=== PATIENT | male | born 1945 | race Caucasian/White ===

== ENCOUNTER 2017-04-27 18:02 | Inpatient (IN) ==
[2017-04-28] MEDS ORDERED: traMADol 50 MG TABLET PO PRN
[2017-04-28] MEDS ORDERED: Naloxone 0.4 MG/ML INJ IVP PRN
[2017-04-28] MEDS ORDERED: Acetaminophen 325 MG TABLET PO PRN
--- NOTE | 2017-04-28 | Internal Med History&Physical ---
<Alex Helms - Last Filed: 04/28/17 01:44> Date of Encounter: 04/28/17 Time of Encounter: 00:00 Assessment and Plan (1) Dyspnea Current visit: Yes Status: Acute Pt with what sounds like Chronic progressive BAI that has been mostly accompanied by non productive cough though recently has been productive. PFTs in July of 2016 showed normal FEV1 and FVC. CXR at that time showed: "There are increased interstitial markings." CXR at this admission shows:Coarse interstitial markings likely chronic in nature. No consolidation, effusion or pneumothorax. Stable cardiomediastinal silhouette. No acute fracture, dislocation, or bony destructive process. CTA at this admission shows:"No evidence of intraluminal filling defect to suggest pulmonary embolism. Main pulmonary artery is enlarged and measures 3.4 cm. This may be seen in setting of pulmonary arterial hypertension." And "extensive ground-glass pulmonary opacities and cystic changes throughout the bilateral lungs. No pleural effusion. No evidence of pneumothorax. No focal consolidation is identified." likely progression of Interstitial lung disease less likely COPD exacerbation, but will cover with breathing treatments and IV steroids which will help with both possible DDx. 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 Depending on actual work involved could be environmental exposure. Patient also 30+ pack year hx of smoking quitting 18 years ago. Plan: consult to Pulmonology placed PFTs ordered repeat ABG ordered continuous pulse ox O2 supplementation as needed IV solumedrol Duonebs Qualifiers: Dyspnea type: dyspnea on exertion Qualified Code(s): R06.09 - Other forms of dyspnea (2) HTN (hypertension) Current visit: Yes Status: Acute Pt with Hx of HTN on home amlodipine, metoprolol Qualifiers: Hypertension type: essential hypertension Qualified Code(s): I10 - Essential (primary) hypertension (3) Hypothyroidism Current visit: Yes Status: Acute Hx of Hypothyroidism on home synthroid plan: continue home synthroid with possible ILD would be prudent to attempt to ascertain cause of patient hypothyroidism to determine if hx of autoimmune disorders. Qualifiers: Hypothyroidism type: unspecified Qualified Code(s): E03.9 - Hypothyroidism , unspecified Internal Medicine - H&P: HPI Chief complaint: Dyspnea Admitted From: Hospital to Hospital Transfer Plans for Post Hospital Care: Home History of present illness: Mr. Mosher is a 72 year old male c PMHx of HTN and hypothyroidism reports to [facility] as a transfer from [place] for Hypoxia and Dyspnea. Patient reports it being hard to pin point when BAI first began. Per notes at [place] patient points to possibly franco time. Patient had work up in July of 2016 for similar symptoms CXR, PFTs, ECHO for SOB and non productive cough for 2-3 months preceding that. Patient reports being treated for possible PNA and being told he had COPD by his PCP. PFTs in July showed obstructive Flow volume loop, but FEV1/FVC was normal FVC was 90% predicted and FEV1 was 87% predicted. Patient reports non productive cough associated with this BAI. He reports cough has become productive over the last few weeks with white sputum. Pt denies fever , chills, chest pain, leg swelling, hemoptysis, nausea, vomiting, diarrhea, abd pain, or urinary symptoms. In the ED patient was worked up with blood work, CXR, and CTA of the Chest. Pt received 1 L NS, Tylenol, 1 duoneb and 125mg IV Solumedrol. Pt's blood work was notable for nl WBC, D-Dimer 322, abg: ph 7.42, pCO2 35, pO2 67, HCO3 23, O2 sat 94, Base Excess -1; trop negative, BNP 41. CXR showed: "Coarse interstitial markings likely chronic in nature. No consolidation, effusion or pneumothorax. Stable cardiomediastinal silhouette. No acute fracture, dislocation, or bony destructive process." CTA chest showed: "No evidence of intraluminal filling defect to suggest pulmonary embolism. Main pulmonary artery is enlarged and measures 3.4 cm. This may be seen in setting of pulmonary arterial hypertension." And "extensive ground-glass pulmonary opacities and cystic changes throughout the bilateral lungs. No pleural effusion. No evidence of pneumothorax. No focal consolidation is identified." Patient was going to be discharged home and treated out patient for COPD exacerbation, but patient became hypoxic to the 80s on exertion so they felt it prudent patient be transferred to [facility] for further work up and pulmonology consult. Patient reports being a former smoker having quit 18 years ago. Patient reports he worked in a factory when asked his occupation, upon further prompting he relayed the factory made machine parts. Past Med Surg Social Fam HX - Past Medical History Medical history: COPD, hypertension, thyroid disease Psychiatric history: no psych history - Social History Smoking Status: Former smoker Smokeless Tobacco Status: No Alcohol use: rarely Drug use: none Internal Medicine - H&P: Meds Albuterol Sulfate [Albuterol Inhaler] 1 puff IH Q6HR PRN #1 [email or web address] 04/27/17 [Rx] Albuterol Sulfate [Albuterol Inhaler] 2 puff IH Q4HR 04/27/17 [History] Atorvastatin Calcium [Lipitor] 20 mg PO DAILY 04/27/17 [History] Cephalexin [Keflex] 500 mg PO BID #14 capsule 04/27/17 [Rx] Clopidogrel [Plavix] 75 mg PO DAILY 04/27/17 [History] Levothyroxine [Synthroid] 125 mcg PO DAILY 04/27/17 [History] Metoprolol Succinate [Toprol Xl] 50 mg PO DAILY 04/27/17 [History] Oxymetazoline HCl [Afrin] 1 spray NS QID PRN #1 bottle 04/27/17 [Rx] PredniSONE [Deltasone] 60 mg PO DAILY 7 Days #7 tablet 04/27/17 [Rx] Saline Nasal [place] [Divide Nasal [place]] 1 appl NS AD PRN 7 Days #1 spray [Rx] amLODIPine [Norvasc] 10 mg PO DAILY 04/27/17 [History] 3 Allergy/AdvReac Type Severity Reaction Status Date / Time No Known Allergies Allergy Verified 04/27/17 13:08 All Systems PM: A 14-system review of systems was performed and is negative for pertinent findings except as documented above in the HPI. - Constitutional Vitals: Temp Pulse Resp BP Pulse Ox 97.7 F 87 17 158/107 93 04/27/17 22:00 04/27/17 22:00 04/27/17 22:00 04/27/17 22:00 04/27/17 22:00 General appearance: Present: A&O X 3, pleasant, no acute distress, answers questions appropriately - Head Head exam: Present: atraumatic, normocephalic - Eye Eye exam: Present: PERRL, conjuntiva pink, sclera anicteric Pupils: Present: PERRL - Neck Neck exam general surgery: Present: supple, trachea midline - Respiratory Respiratory exam: Present: decreased breath sounds, CTAB. Absent: accessory muscle use, rales, rhonchi, wheezes - Cardiovascular Cardiovascular exam: Present: RRR, +S1, +S2. Absent: diastolic murmur, gallop, rubs, systolic murmur - GI/Abdominal GI/Abdominal exam: Present: normal bowel sounds, soft, no peritoneal signs. Absent: distended, tenderness - Extremities Exam Extremities exam: Present: warm, radial pulses palpable and symmetrical. Absent : calf tenderness, cyanotic, pedal edema - Neurological Exam Neurological exam: Present: alert, oriented X3, no focal deficits. Absent: facial droop, speech deficit - Skin Skin exam: Present: dry, intact <[place],Jayce P - Last Filed: 04/28/17 05:36> Date of Encounter: 04/28/17 Internal Medicine - H&P: HPI History of present illness: Mr. Mosher is a 72 year old male All Systems PM: A 10-system review of systems was performed and is negative for pertinent findings except as documented above in the HPI. - Constitutional Vitals: Temp Pulse Resp BP Pulse Ox 97.6 F 83 17 138/53 95 04/28/17 03:54 04/28/17 03:54 04/28/17 03:54 04/28/17 03:54 04/28/17 03:54 Internal Med - H&P Results - Labs CBC & Chem 7: 04/28/17 03:03 Labs: BMP 04/28/17 03:03 Sodium 138 Potassium 4.2 Chloride 105 Carbon Dioxide 26 BUN 20 Creatinine 0.80 Glucose 242 H Calcium 9.5 - ABG Interpretation ABG results: 04/28/17 03:15 ABG pH 7.41 ABG pCO2 40 ABG pO2 78 L ABG HCO3 26 ABG Total CO2 27 H ABG O2 Saturation 96 ABG Base Excess 1 - Attending Attestation I examined this patient and my medical decision-making was reviewed with the Resident Physician. I agree with the documented findings, disposition and treatment plan as described except to the extent set forth below. 72/male Admitted with shortness of breath. Likely COPD exacerbation. Noted a pulmonary evaluation. Agree with present management. Close monitoring of respiratory status.
[2017-04-28] MEDS: GuaiFENesin/Dextromethorphan TABLET PO SCH ×3 (01:49→21:18)
[2017-04-28] MEDS: Ipratropium/Albuterol Neb 3 ML IH SCH ×5 (03:16→20:29)
[2017-04-28 03:21] LABS: ABG Base Excess 1 mEq/L (-2 to 3); ABG HCO3 26 mEq/L (21-27); ABG Oxygen Saturation 96 % (95-98); ABG PCO2 40 mmHg (35-45); ABG PH 7.41 pH Units (7.32-7.45); ABG PO2 78 mmHg (85-104); ABG TCO2 27 mEq/L (20-26)
[2017-04-28 04:32] LABS: BUN/Creatinine Ratio 25 (6-26); Blood Urea Nitrogen 20 mg/dL (8-23); Calcium 9.5 mg/dL (8.6-10.3); Carbon Dioxide 26 mEq/L (23-29); Chloride 105 mEq/L (98-107); Glucose 242 mg/dL (70-105); Osmolality,Calculated 297 (280-300); Potassium 4.2 mEq/L (3.5-5.1); Sodium 138 mEq/L (136-145); eGFR For African Americans > 60 (> 60); eGFR For Non-African Americans > 60 (> 60)
[2017-04-28 04:58] LABS: Basophils % 0.4 %; Hematocrit 43.7 % (37.5-50.1); Hemoglobin 14.3 g/dL (12.9-16.9); Immature Granulocytes % 0.4 % (0-4); Lymphocytes # 0.5 K/mcL (0.6-4.6); Lymphocytes % 21.2 %; Mean Corpuscular HGB Conc 32.7 g/dL (31.6-35.5); Mean Corpuscular Hemoglobin 28.2 pg (28.0-33.3); Mean Corpuscular Volume 86.2 fL (83.0-100.0); Mean Platelet Volume 11.9 fL (9.4-12.4); Monocytes # 0.1 K/mcL (0.0-1.3); Monocytes % 5.5 %; Neutrophils # 1.7 K/mcL (1.6-8.9); Platelet Count 181 K/mcL (140-400); Red Blood Count 5.07 M/mcL (4.19-5.50); Red Cell Distribution Width 14.4 % (11.5-14.5); Segmented Neutrophils % 72.5 %
[2017-04-28] MEDS: *HR* Enoxaparin 40 MG/0.4 ML SYRINGE SQ SCH (05:32)
[2017-04-28 05:45] LABS: Platelet Estimate Normal (Normal)
[2017-04-28] MEDS: Metoprolol XL (24 HR) Succ 50 MG TAB.ER.24H PO SCH (09:22)
[2017-04-28] MEDS: amLODIPine 5 MG TABLET PO SCH (09:22)
[2017-04-28] MEDS: MethylPREDNISolone 40 MG/ML VIAL IVP SCH ×2 (09:22→15:01)
--- NOTE | 2017-04-28 15:17 | Pulmonology Consult Note ---
Date of Encounter: 04/28/17 Time of Encounter: 15:15 Assessment and Plan (1) Acute respiratory failure with hypoxia Current Visit: Yes Status: Acute Patient presenting with shortness of breadth looks like patient has bullous emphysematous disease now presenting most likely infectious cause with Copd exacerbation , with CHF in the differential also ILD which is low in the differential . To continue O2 supplementation , will need ascertain exercise o2 requirements on discharge will see him in six weeks will repeat the imaging at the time (2) Pneumonia Current Visit: Yes Status: Acute Patient is presenting with bilateral ground glass opacities in the background of emphysematous changes the commonest reason for ground glass opacity are atypical pneumonia vs Pulmonary edema will start treating with Doxycycline 100 mg IV BID for total of 14 days on discharge he can go home on PO doxycycline 100 mg PO . Will do respiratory viral infection panel , check studies for legionella . Since he has CAD s/p stents will get ECHO for LV systolic and diastolic function , RV function and Pulmonary hypertension . Low on the differential inflammatory pneumonias like NSIP , LIP patient doesnt have any rheumatologic disease or any symptoms , doesnt have any symptoms pertaining to any chronic immunodeficiency which can lead to lymphoid intersitial pneumonia the CT scan didnt show any evidence of that will repeat CT scan after we see him as outpatient. Qualifiers: Pneumonia type: due to unspecified organism Laterality: unspecified laterality Lung location: unspecified part of lung Qualified Code(s): J18.9 - Pneumonia, unspecified organism (3) Bullous emphysema Current Visit: Yes Status: Acute Reviewing the CT scan is more of bullous changes rather than a cystic lung disease only other differential which is close to this presentation in CT scan Pulmonary Langerhans histiocytosis which is usually upper lobe predominant with some micronodular opacities doesnt looks like that . Most of the changes falls into a pattern for centrilobular and paraseptal emphysematous changes and some panacinar changes will check alpha1 -antitrypsin with 30 years of smoking and continued exposure to second hand smoke can cause these findings . To send him home on duoneb nebulizer and symbicort BID To send him home on 3 week prednisone taper . (4) Ground glass opacity present on imaging of lung Current Visit: Yes Status: Acute Differential will be atypical bacterial pneumonia vs Viral pneumonia Vs CHF vs ILD . Will give 14 days of 100 mg PO doxycycline . If there is no evidence of CHF and after 8 weeks if there is persistent ground glass opacities in HRCT will consider bronchoscopic evaluation . History of Present Illness Consult date: 04/28/17 Requesting physician: Jayce Lovelace Reason for consult: dyspnea, cough, abnormal CXR/CT Chief complaint: Cough and shortness of breadth History of present illness: 72 year old male with past medical history significant for Chronic smoking for 30 years stopped 18 years ago constantly exposed to second hand smoke all these years comes with progressive shortness of breadth , with cough and sputum production , denies any chest pain , denies any orthopnea and PND , denies any fever or chills denies any joint pains , denies any pedal edema , denies any chest tightness or palpitations , denies any pet exposures , denies any unusual hobbies , denies any recurrent pneumonias or any other infections suggestive of any background immunodeficiency. Denies any family history of lung disease and spontaneous pneumothorax , denies any neuro symptoms and MSK symptoms , patient even though there is progressive decrease in exercise tolerance he is pretty active , Pulmonary was consulted for the CT scan suggestive of cystic lung disease . Past Med Surg Social Fam HX - Past Medical History Medical history: COPD, hypertension, thyroid disease Psychiatric history: no psych history - Social History Smoking Status: Former smoker Smokeless Tobacco Status: No Alcohol use: rarely Drug use: none Medications and Allergies Albuterol Sulfate [Albuterol Inhaler] 1 puff IH Q6HR PRN #1 hfa.aer.ad 04/27/17 [Rx] Atorvastatin Calcium [Lipitor] 20 mg PO DAILY 04/27/17 [History] Clopidogrel [Plavix] 75 mg PO DAILY 04/27/17 [History] Levothyroxine [Synthroid] 125 mcg PO DAILY 04/27/17 [History] Oxymetazoline HCl [Afrin] 1 spray NS QID PRN #1 bottle 04/27/17 [Rx] PredniSONE [Deltasone] 60 mg PO DAILY 7 Days #7 tablet 04/27/17 [Rx] Saline Nasal [place] [[place] Nasal [place]] 1 appl NS AD PRN 7 Days #1 spray [Rx] amLODIPine [Norvasc] 10 mg PO DAILY 04/27/17 [History] Citalopram Hydrobromide [Celexa] 20 mg PO DAILY 04/28/17 [History] Metoprolol [Lopressor] 50 mg PO DAILY 04/28/17 [History] Umeclidinium Brm/Vilanterol Tr [Anoro Ellipta 62.5-25 Mcg INH] 1 puff IH DAILY 04/28/17 [History] 3 Allergy/AdvReac Type Severity Reaction Status Date / Time No Known Allergies Allergy Verified 04/27/17 13:08 All Systems: The remainder of the systems were reviewed and are negative Physical Examination Vital Signs: Vital Signs, Last 4 Hours Temp Pulse Resp BP Pulse Ox 04/28/17 12:06 98.5 F 71 16 135/86 93 04/28/17 11:53 18 80 Auscultation: bilateral: wheezes Results - Laboratory Findings CBC and BMP: 04/28/17 03:03 04/28/17 03:03 ABG ABG pH 7.41 pH Units (7.32-7.45) 04/28/17 03:15 ABG pCO2 40 mmHg (35-45) 04/28/17 03:15 ABG pO2 78 mmHg (85-104) L 04/28/17 03:15 ABG O2 Saturation 96 % (95-98) 04/28/17 03:15 Abnormal lab findings: Abnormal lab results WBC 2.4 K/mcL (4.3-11.1) L 04/28/17 03:03 Lymphocytes # 0.5 K/mcL (0.6-4.6) L 04/28/17 03:03 ABG pO2 78 mmHg (85-104) L 04/28/17 03:15 ABG Total CO2 27 mEq/L (20-26) H 04/28/17 03:15 Glucose 242 mg/dL (70-105) H 04/28/17 03:03 - Clinical Findings Intake & Output: Intake & Output 04/27/17 04/28/17 04/28/17 23:59 07:59 15:59 Intake Total 360 / 360 Balance 360 / 360 Weight 83.416 kg Consult Discharge Plan - Plan Referrals: Mady Felipe, [employer] [Primary Care Provider] - 04/30/17 1:20 pm
--- NOTE | 2017-04-28 16:34 | Internal Med Progress Note ---
Date of Encounter: 04/28/17 Time of Encounter: 16:30 - Assessment and plan (1) Dyspnea Current Visit: Yes Status: Acute Assessment and plan: presented with progressive dyspnea on exertion with associated dry, nonproductive cough. CTA showed no evidence pulmonary embolism. Main pulmonary artery is enlarged and measures 3.4 cm. This may be seen in setting of pulmonary arterial hypertension." And "extensive ground-glass pulmonary opacities and cystic changes throughout the bilateral lungs. Cont steroids. Respiratory PCR, urinary antigens, echocardiogram and BNP pending. Pulmonology following. Qualifiers: Dyspnea type: dyspnea on exertion Qualified Code(s): R06.09 - Other forms of dyspnea (2) HTN (hypertension) Current Visit: Yes Status: Acute Assessment and plan: Pt with Hx of HTN on home amlodipine, metoprolol Qualifiers: Hypertension type: essential hypertension Qualified Code(s): I10 - Essential (primary) hypertension (3) Hypothyroidism Current Visit: Yes Status: Acute Assessment and plan: per hx. Cont home levothyroxine Qualifiers: Hypothyroidism type: unspecified Qualified Code(s): E03.9 - Hypothyroidism , unspecified (4) DVT prophylaxis Current Visit: Yes Status: Acute Assessment and plan: lovenox - Constitutional Vitals: Temp Pulse Resp BP Pulse Ox 97.8 F 86 17 164/93 91 04/28/17 16:13 04/28/17 16:13 04/28/17 16:13 04/28/17 16:13 04/28/17 16:13 General appearance: Present: A&O X 3, pleasant, no acute distress, answers questions appropriately Internal Medicine: Result - Labs CBC & Chem 7: 04/28/17 03:03 04/28/17 03:03 Labs: Short CBC 04/28/17 Range/Units 03:03 WBC 2.4 L (4.3-11.1) K/mcL Hgb 14.3 (12.9-16.9) g/dL Hct 43.7 (37.5-50.1) % Plt Count 181 (140-400) K/mcL Neutrophils # 1.7 (1.6-8.9) K/mcL BMP 04/28/17 03:03 Sodium 138 Potassium 4.2 Chloride 105 Carbon Dioxide 26 BUN 20 Creatinine 0.80 Glucose 242 H Calcium 9.5 - ABG Interpretation ABG results: ABG ABG pH 7.41 pH Units (7.32-7.45) 04/28/17 03:15 ABG pCO2 40 mmHg (35-45) 04/28/17 03:15 ABG pO2 78 mmHg (85-104) L 04/28/17 03:15 ABG O2 Saturation 96 % (95-98) 04/28/17 03:15 Consult Discharge Plan - Plan Referrals: Mady Felipe CNP [Primary Care Provider] - 04/30/17 1:20 pm
[2017-04-28] MEDS: Doxycycline 100 MG in 0.9 % Sodium Chloride Mini Bag 100 ML IVPB SCH (18:20)
[2017-04-28] MEDS: predniSONE 20 MG TABLET PO SCH (18:20)
[2017-04-28] MEDS ORDERED: Benzonatate 100 MG CAPSULE PO PRN (19:27)
[2017-04-28 19:31] LABS: Adenovirus Not Detected (Not Detect); Bordetella Pertussis Not Detected (Not Detect); Chlamydophila pneumoniae Not Detected (Not Detect); Coronavirus 229E Not Detected (Not Detect); Coronavirus HKU1 Not Detected (Not Detect); Coronavirus NL63 Not Detected (Not Detect); Coronavirus OC43 Not Detected (Not Detect); Human Metapneumovirus Not Detected (Not Detect); Human Rhinovirus/Enterovirus Not Detected (Not Detect); Influenza A Subtype 2009 H1 Not Detected (Not Detect); Influenza A Untypeable Not Detected (Not Detect); Influenza B Not Detected (Not Detect); Mycoplasma pneumoniae Not Detected (Not Detect); Parainfluenza Virus 1 Not Detected (Not Detect); Parainfluenza Virus 2 Not Detected (Not Detect); Parainfluenza Virus 3 Not Detected (Not Detect); Parainfluenza Virus 4 Not Detected (Not Detect); Respiratory Syncytial Virus ***DETECTED*** (Not Detect)
[2017-04-29] MEDS: Ipratropium/Albuterol Neb 3 ML IH SCH ×7 (00:42→23:57)
[2017-04-29] MEDS: *HR* Enoxaparin 40 MG/0.4 ML SYRINGE SQ SCH (05:45)
[2017-04-29] MEDS: Doxycycline 100 MG in 0.9 % Sodium Chloride Mini Bag 100 ML IVPB SCH ×2 (05:46→17:12)
[2017-04-29 06:41] LABS: Hematocrit 44.3 % (37.5-50.1); Hemoglobin 14.5 g/dL (12.9-16.9); Mean Corpuscular HGB Conc 32.7 g/dL (31.6-35.5); Mean Corpuscular Hemoglobin 28.3 pg (28.0-33.3); Mean Corpuscular Volume 86.5 fL (83.0-100.0); Platelet Count 188 K/mcL (140-400); Red Blood Count 5.12 M/mcL (4.19-5.50); Red Cell Distribution Width 14.5 % (11.5-14.5)
[2017-04-29 06:54] LABS: BUN/Creatinine Ratio 28 (6-26); Blood Urea Nitrogen 19 mg/dL (8-23); Calcium 9.2 mg/dL (8.6-10.3); Carbon Dioxide 25 mEq/L (23-29); Chloride 105 mEq/L (98-107); Glucose 213 mg/dL (70-105); Osmolality,Calculated 299 (280-300); Potassium 3.5 mEq/L (3.5-5.1); Sodium 140 mEq/L (136-145); eGFR For African Americans > 60 (> 60); eGFR For Non-African Americans > 60 (> 60)
[2017-04-29] MEDS: amLODIPine 5 MG TABLET PO SCH (07:35)
[2017-04-29] MEDS: Metoprolol XL (24 HR) Succ 50 MG TAB.ER.24H PO SCH (07:35)
[2017-04-29] MEDS: GuaiFENesin/Dextromethorphan TABLET PO SCH ×2 (07:35→20:49)
[2017-04-29] MEDS: predniSONE 20 MG TABLET PO SCH (07:35)
--- NOTE | 2017-04-29 13:16 | Pulmonology Progress Note ---
Date of Encounter: 04/29/17 Time of Encounter: 12:30 Assessment and Plan (1) Acute respiratory failure with hypoxia Current Visit: Yes Status: Acute Patient presenting with acute respiratory failure due to COPD exacerbation caused by RSV pneumonia as PCR is positive with ECHO showing diastolic heart failure with Severe Pulmonary hypertension which is contributing to V/Q mismatch. Will need O2 on discharge as recovering from COPD exacerbation due to RSV pneumonia takes a while to recover . Explained to the patient that he will need O2 on discharge . (2) Pulmonary hypertension Current Visit: Yes Status: Acute Patient Pulmonary HTN is due to Class III long standing lung disease contributed by Class II with diastolic heart failure . Need to optimize the treatment for underlying cause will repeat ECHO in 3 months if there is Severe Pulmonary HTN with decreased exercise tolerance patient might benefit from right heart cath will revaluate as an outpatient . (3) Bullous emphysema Current Visit: Yes Status: Acute Will send him home on Duoneb nebulizer and with Symbicort BID will follow as an outpatient with repeat CT chest (4) Pneumonia Current Visit: Yes Status: Acute RSV pneumonia atypical pneumonia cannot be ruled out will complete 14 day course of antibiotics and steroid taper Qualifiers: Pneumonia type: due to unspecified organism Laterality: unspecified laterality Lung location: unspecified part of lung Qualified Code(s): J18.9 - Pneumonia, unspecified organism (5) Ground glass opacity present on imaging of lung Current Visit: Yes Status: Acute GGO can be explained by RSV pneumonia and diastolic heart failure . (6) Diastolic heart failure Current Visit: Yes Status: Acute Patient will need gentle diuresis with outpatient cardiology follow up. Qualifiers: Heart failure chronicity: acute Qualified Code(s): I50.31 - Acute diastolic (congestive) heart failure Objective PUL Vital signs: Last Vital Signs Temp 98.0 F 04/29/17 11:04 Pulse 90 04/29/17 11:04 Resp 20 04/29/17 11:09 BP 134/89 04/29/17 11:04 Pulse Ox 94 04/29/17 11:09 Results - Laboratory Findings CBC and BMP: 04/29/17 05:10 04/29/17 05:10 ABG ABG pH 7.41 pH Units (7.32-7.45) 04/28/17 03:15 ABG pCO2 40 mmHg (35-45) 04/28/17 03:15 ABG pO2 78 mmHg (85-104) L 04/28/17 03:15 ABG O2 Saturation 96 % (95-98) 04/28/17 03:15 Abnormal lab findings: Abnormal lab results Lymphocytes # 0.5 K/mcL (0.6-4.6) L 04/28/17 03:03 ABG pO2 78 mmHg (85-104) L 04/28/17 03:15 ABG Total CO2 27 mEq/L (20-26) H 04/28/17 03:15 Creatinine 0.68 mg/dL (0.70-1.30) L 04/29/17 05:10 BUN/Creatinine Ratio 28 (6-26) H 04/29/17 05:10 Glucose 213 mg/dL (70-105) H 04/29/17 05:10 B-Natriuretic Peptide 106 pg/mL (Less than 100) H 04/29/17 05:10 RSV (PCR) DETECTED (Not Detect) A 04/28/17 18:20 - Microbiology Findings Microbiology Findings: Microbiology, Last 48 Hours 04/28/17 18:20 Legionella Antigen - Final Urine,Clean Catch Streptococcus pneumoniae Antigen (M - Final - Clinical Findings Intake & Output: Intake & Output 04/28/17 04/29/17 04/29/17 23:59 07:59 15:59 Intake Total 250 / 250 240 / 240 Balance 250 / 250 240 / 240 Weight 84.232 kg Consult Discharge Plan - Plan Referrals: Mady Felipe, [employer] INSPECTOR [Primary Care Provider] - 04/30/17 1:20 pm
--- NOTE | 2017-04-29 14:33 | Internal Med Progress Note ---
Date of Encounter: 04/29/17 Time of Encounter: 11:30 - Assessment and plan (1) Acute respiratory failure with hypoxia Current Visit: Yes Status: Acute Assessment and plan: Symptomatic with shortness of breath cough and sore throat for 8 weeks. Does not wear oxygen at home and now requiring supplemental O2 to maintain adequate oxygen saturations. Multifactorial with suspected pneumonia, emphysema and possible CHS and/or interstitial lung disease. Continue treating underlying causes as noted below. Pulmonology following. Wean O2 as able. (2) Bullous emphysema Current Visit: Yes Status: Acute Assessment and plan: evaluated by Pulmonology who felt CT findings more consistent with bullous changes rather than a cystic lung disease. Will need to be discharged home with duoneb nebulizer and symbicort BID and 3 week prednisone taper . (3) Pneumonia Current Visit: Yes Status: Acute Assessment and plan: chest CT showed bilateral ground glass opacities. Pulmonology noted concern for atypical pneumonia vs Pulmonary edema. Resp PCR with RSV, urinary antigens negative. TTE with EF 60% and mild diastolic dysfunction. Clinically does not appear to be overloaded. Cont doxycycline for now. Pulmonology following; await further recommendations. Qualifiers: Pneumonia type: due to unspecified organism Laterality: unspecified laterality Lung location: unspecified part of lung Qualified Code(s): J18.9 - Pneumonia, unspecified organism (4) Hypothyroidism Current Visit: Yes Status: Acute Assessment and plan: per hx. Cont home levothyroxine Qualifiers: Hypothyroidism type: unspecified Qualified Code(s): E03.9 - Hypothyroidism , unspecified (5) HTN (hypertension) Current Visit: Yes Status: Acute Assessment and plan: Pt with Hx of HTN on home amlodipine, metoprolol Qualifiers: Hypertension type: essential hypertension Qualified Code(s): I10 - Essential (primary) hypertension (6) DVT prophylaxis Current Visit: Yes Status: Acute Assessment and plan: lovenox - Subjective Interval history: Seen and examined at bedside; overall about the same. Says he may feel slightly better but still with sore throat and nonproductive cough. No fevers or chills. Still short of breath at times it is worse with exertion or coughing fit. No chest pain. No fevers or chills overnight. - Constitutional Vitals: Temp Pulse Resp BP Pulse Ox 98.0 F 90 20 134/89 94 04/29/17 11:04 04/29/17 11:04 04/29/17 11:09 04/29/17 11:04 04/29/17 11:09 General appearance: Present: A&O X 3, pleasant, no acute distress, answers questions appropriately - Head Head exam: Present: atraumatic, normocephalic - Eye Eye exam: Present: PERRL, conjuntiva pink, sclera anicteric Pupils: Present: PERRL - Neck Neck exam general surgery: Present: supple, trachea midline. Absent: lymphadenopathy - Respiratory Respiratory exam: Present: CTAB. Absent: accessory muscle use, rales, rhonchi, wheezes - Cardiovascular Cardiovascular exam: Present: RRR, +S1, +S2. Absent: diastolic murmur, gallop, rubs, systolic murmur - GI/Abdominal GI/Abdominal exam: Present: normal bowel sounds, soft, no peritoneal signs. Absent: distended, tenderness - Extremities Exam Extremities exam: Present: warm, radial pulses palpable and symmetrical. Absent : calf tenderness, cyanotic, pedal edema - Neurological Exam Neurological exam: Present: CN II-XII intact, oriented X3, no focal deficits. Absent: pronater drift, facial droop, speech deficit - Skin Skin exam: Present: dry, intact Internal Medicine: Result - Labs CBC & Chem 7: 04/29/17 05:10 04/29/17 05:10 Labs: Short CBC 04/29/17 Range/Units 05:10 WBC 7.3 D (4.3-11.1) K/mcL Hgb 14.5 (12.9-16.9) g/dL Hct 44.3 (37.5-50.1) % Plt Count 188 (140-400) K/mcL BMP 04/29/17 05:10 Sodium 140 Potassium 3.5 Chloride 105 Carbon Dioxide 25 BUN 19 Creatinine 0.68 L Glucose 213 H Calcium 9.2 - ABG Interpretation ABG results: ABG ABG pH 7.41 pH Units (7.32-7.45) 04/28/17 03:15 ABG pCO2 40 mmHg (35-45) 04/28/17 03:15 ABG pO2 78 mmHg (85-104) L 04/28/17 03:15 ABG O2 Saturation 96 % (95-98) 04/28/17 03:15 - Impressions Impressions Echocardiogram 04/29/17 15:51 Impressions: LVEF 60%. Normal LV chamber size, wall thickness and function. Mild left ventricular diastolic dysfunction. Normal right ventricular structure and function. Moderately dilated left atrium. Severe pulmonary hypertension. Estimated RVSP is 57 mmHg. No significant valvular dysfunction. Left Ventricular Wall Motion: Rest Echo Findings All wall segments showed normal motion. Findings: Study Quality * Technically adequate exam. ECG Findings * Normal sinus rhythm. Left Ventricle * LVEF 60%. * Normal LV chamber size, wall thickness and function. * Mild left ventricular diastolic dysfunction. Right Ventricle * Normal right ventricular structure and function. Left Atrium * Moderately dilated left atrium. Right Atrium * Mildly dilated right atrium. Interatrial Septum * No evidence of PFO by color Doppler. Aortic Valve * Trileaflet aortic valve. * Mildly calcified aortic valve leaflets. * Trace aortic regurgitation. * No aortic stenosis. Mitral Valve * Normal mitral valve structure and function. * No mitral regurgitation. * No mitral stenosis. Tricuspid Valve * Normal tricuspid valve structure and function. * Trace tricuspid regurgitation. * Severe pulmonary hypertension. * Estimated RVSP is 57 mmHg. * Estimated RA pressure is 5 mmHg. Pulmonic Valve * Pulmonic valve is not well visualized. * No pulmonic regurgitation. Aorta * Normally sized aortic root. Pericardium * The pericardium appears normal. IVC * Normal IVC dimensions and inspiratory collapse. Pulmonary Artery * Normal visualized portions of the main pulmonary artery. Consult Discharge Plan - Plan Referrals: Mady Felipe CNP [Primary Care Provider] - 04/30/17 1:20 pm
[2017-04-29] MEDS: Budesonide/Formoterol 160/4.5 MDI IH SCH ×2 (15:48→20:39)
[2017-04-30] MEDS: Ipratropium/Albuterol Neb 3 ML IH SCH ×4 (04:22→16:14)
[2017-04-30] MEDS: Doxycycline 100 MG in 0.9 % Sodium Chloride Mini Bag 100 ML IVPB SCH (06:13)
[2017-04-30] MEDS: *HR* Enoxaparin 40 MG/0.4 ML SYRINGE SQ SCH (06:13)
[2017-04-30 06:16] LABS: Hematocrit 44.1 % (37.5-50.1); Hemoglobin 14.3 g/dL (12.9-16.9); Mean Corpuscular HGB Conc 32.4 g/dL (31.6-35.5); Mean Corpuscular Hemoglobin 28.3 pg (28.0-33.3); Mean Corpuscular Volume 87.3 fL (83.0-100.0); Mean Platelet Volume 11.2 fL (9.4-12.4); Platelet Count 182 K/mcL (140-400); Red Blood Count 5.05 M/mcL (4.19-5.50); Red Cell Distribution Width 14.6 % (11.5-14.5)
[2017-04-30 06:40] LABS: BUN/Creatinine Ratio 18 (6-26); Blood Urea Nitrogen 13 mg/dL (8-23); Carbon Dioxide 31 mEq/L (23-29); Chloride 101 mEq/L (98-107); Glucose 122 mg/dL (70-105); Osmolality,Calculated 291 (280-300); Potassium 3.2 mEq/L (3.5-5.1); Sodium 140 mEq/L (136-145); eGFR For African Americans > 60 (> 60); eGFR For Non-African Americans > 60 (> 60)
[2017-04-30] MEDS: GuaiFENesin/Dextromethorphan TABLET PO SCH (08:02)
[2017-04-30] MEDS: amLODIPine 5 MG TABLET PO SCH (08:02)
[2017-04-30] MEDS: Metoprolol XL (24 HR) Succ 50 MG TAB.ER.24H PO SCH (08:02)
[2017-04-30] MEDS: predniSONE 20 MG TABLET PO SCH (08:02)
[2017-04-30] MEDS: Budesonide/Formoterol 160/4.5 MDI IH SCH (08:10)
[2017-04-30 11:40] VITALS: BP 143/89
--- NOTE | 2017-04-30 13:06 | Discharge Summary ---
Orders not resulted at time of discharge: Pending orders 04/28/17 16:34 Culture,Sputum with Gram Stain [RM] Routine 04/28/17 16:40 ALISA Titer by IFA Routine 04/28/17 17:50 Yooan-1-Rhtquvolmse Routine Date of Encounter: 04/30/17 Time of Encounter: 13:22 - Discharge Diagnosis (1) Acute respiratory failure with hypoxia Priority: Primary Status: Acute Comments: Symptomatic with shortness of breath cough and sore throat for 8 weeks. Does not wear oxygen at home and required supplemental O2 to maintain adequate oxygen saturations. Multifactorial with RSV pneumonia, emphysema, diastolic heart failure and pulmonary hypertension. He was evaluated by pulmonology who noted will likely take several weeks to recover. He qualified for home oxygen and was discharged home in stable condition with outpatient follow-up. (2) Bullous emphysema Priority: Primary Status: Acute Comments: evaluated by Pulmonology who felt CT findings more consistent with bullous changes rather than a cystic lung disease. Discharged home with duoneb nebulizer , symbicort and 3 week prednisone taper. Follow-up with pulmonology outpatient (3) Pneumonia due to respiratory syncytial virus (RSV) Priority: Primary Status: Acute Comments: chest CT showed bilateral ground glass opacities. Resp PCR with RSV, urinary antigens negative. Discharge home on 2 week course of doxycycline. Outpatient pulmonology follow-up. (4) Diastolic heart failure Priority: Primary Status: Acute Comments: TTE with EF 60%, mild diastolic dysfunction, moderately dilated left atrium and severe pulmonary hypertension. Gentle diuresis at discharge with outpatient cardiology follow up. Qualifiers: Heart failure chronicity: acute Qualified Code(s): I50.31 - Acute diastolic (congestive) heart failure (5) Pulmonary hypertension Priority: Primary Status: Acute Comments: Evaluated by Pulmonolgy who noted hypertension secondary to Class III long standing lung disease contributed by Class II with diastolic heart failure. Continue treating underlying lung disease and diastolic heart failure as noted above. Follow up outpatient with pulmonology for repeat ECHO in 3 months if there is Severe Pulmonary HTN with decreased exercise tolerance patient might benefit from right heart cath which will be revaluated as an outpatient (6) Hypothyroidism Priority: Secondary Status: Acute Comments: per hx. Cont home levothyroxine Qualifiers: Hypothyroidism type: unspecified Qualified Code(s): E03.9 - Hypothyroidism , unspecified (7) HTN (hypertension) Priority: Secondary Status: Acute Comments: per hx. BP controlled. Cont home BP medication Qualifiers: Hypertension type: essential hypertension Qualified Code(s): I10 - Essential (primary) hypertension Hospital course: Mr. Mosher is a 72 year old male with past medical history hypertension and hypo-thyroidism who presented to [facility] on 2017 with complaints of progressive shortness of breath and dyspnea on exertion. He was found to be in acute respiratory failure with hypoxia and found to have underlying on her hypertension, emphysema, suspected pneumonia and diastolic heart failure. He was evaluated by pulmonology and discharge home on prolonged steroid taper, ATB, bronchodilators and low-dose Lasix. He qualified for home oxygen and was discharged home in stable condition with outpatient follow-up. Please see assessment and plan for further details. Discharge discussed with: patient, family - Time Spent with Patient Total time spent providing and/or coordinating discharge services: Greater than 30 minutes (58 minutes spent on discharge) - Discharge Medications Prescriptions: Ipratropium/Albuterol Neb [Duoneb] 3 ml IH Q4HR PRN #30 vial.neb PRN Reason: Shortness Of Breath/Wheezing Doxycycline 100 mg PO BID #28 capsule Furosemide [Lasix] 20 mg PO DAILY #30 tablet predniSONE [PredniSONE] 10 mg PO DAILY #84 tablet Home Medications: Albuterol Sulfate [Albuterol Inhaler] 1 puff IH Q6HR PRN #1 hfa.aer.ad 04/27/17 [Rx] Atorvastatin Calcium [Lipitor] 20 mg PO DAILY 04/27/17 [History] Clopidogrel [Plavix] 75 mg PO DAILY 04/27/17 [History] Levothyroxine [Synthroid] 125 mcg PO DAILY 04/27/17 [History] Oxymetazoline HCl [Afrin] 1 spray NS QID PRN #1 bottle 04/27/17 [Rx] Saline Nasal [place] [[place] Nasal [place]] 1 appl NS AD PRN 7 Days #1 spray [Rx] amLODIPine [Norvasc] 10 mg PO DAILY 04/27/17 [History] Citalopram Hydrobromide [Celexa] 20 mg PO DAILY 04/28/17 [History] Metoprolol [Lopressor] 50 mg PO DAILY 04/28/17 [History] Umeclidinium Brm/Vilanterol Tr [Anoro Ellipta 62.5-25 Mcg INH] 1 puff IH DAILY 04/28/17 [History] Budesonide/Formoterol 160/4.5 [Symbicort 160/4.5] 2 puff IH BIDR inhaler [Rx] Doxycycline 100 mg PO BID #28 capsule 04/30/17 [Rx] Furosemide [Lasix] 20 mg PO DAILY #30 tablet 04/30/17 [Rx] Ipratropium/Albuterol Neb [Duoneb] 3 ml IH Q4HR PRN #30 vial.neb 04/30/17 [Rx] predniSONE [PredniSONE] 10 mg PO DAILY #84 tablet 04/30/17 [Rx] Allergies/Adverse Reactions: 3 Allergy/AdvReac Type Severity Reaction Status Date / Time No Known Allergies Allergy Verified 04/27/17 13:08 Date of admission: 04/29/17 14:46 Primary care physician: Mady Felipe CNP Consults: 04/28/17 00:05 Consult to Pulmonology [CONS] Routine Consulting Provider: [facility] [place] Reason for Consult: Hypoxia, dyspnea on exertion, CT chest with Findings suggestive of interstitial lung disease. Call Completed: No Discharging clinician: Anabel Mccullough Anticipated date of discharge: 04/30/17 - Constitutional Vitals: Temp Pulse Resp BP Pulse Ox 98.5 F 69 16 143/89 98 04/30/17 11:38 04/30/17 11:38 04/30/17 11:45 04/30/17 11:38 04/30/17 11:45 General appearance: Present: A&O X 3, pleasant, no acute distress, answers questions appropriately - Head Head exam: Present: atraumatic, normocephalic - Eye Eye exam: Present: PERRL, conjuntiva pink, sclera anicteric Pupils: Present: PERRL - Neck Neck exam general surgery: Present: supple, trachea midline. Absent: lymphadenopathy - Respiratory Respiratory exam: Present: CTAB. Absent: accessory muscle use, rales, rhonchi, wheezes - Cardiovascular Cardiovascular exam: Present: RRR, +S1, +S2. Absent: diastolic murmur, gallop, rubs, systolic murmur - GI/Abdominal GI/Abdominal exam: Present: normal bowel sounds, soft, no peritoneal signs. Absent: distended, tenderness - Extremities Exam Extremities exam: Present: warm, radial pulses palpable and symmetrical. Absent : calf tenderness, cyanotic, pedal edema - Neurological Exam Neurological exam: Present: CN II-XII intact, oriented X3, no focal deficits. Absent: pronater drift, facial droop, speech deficit - Skin Skin exam: Present: dry, intact - Patient Status Disposition: Home, Self-Care Condition: Good Functional capacity at discharge: independent ambulation Overall status at discharge: patient is progressing back to baseline - Discharge Instructions Instructions: Emphysema (DC), Chronic Obstructive Pulmonary Disease (DC), Heart Failure (DC), Pulmonary Arterial Hypertension (DC), Doxycycline (By mouth) , Prednisone (By mouth), Furosemide (By mouth), Ipratropium/Albuterol (By breathing) Follow Up With: Mady Felipe CNP [Primary Care Provider] - 04/30/17 1:20 pm - Diet and Activity Activity: increase activity as tolerated Diet: advance to your usual diet
[2017-04-30] MEDS ORDERED: FLUARIX QUAD 2017-18 36MOS UP/PF 0.5 ML SYRINGE IM ONE (14:09)
== END 2017-04-30 18:00 | disposition home or self-care (01) | DRG 291 ==
LOC: 3BNU
PROVIDERS: ADMIT Registered Nurse; ATTEND Registered Nurse

== ENCOUNTER 2017-06-17 16:52 | Inpatient (IN) ==
--- NOTE | 2017-06-17 21:52 | Internal Med History&Physical ---
Date of Encounter: 06/17/17 Time of Encounter: 21:49 Internal Medicine - H&P: HPI Chief complaint: sob Admitted From: Intrahospital Transfer Plans for Post Hospital Care: Home History of present illness: Mr. Mosher is a 72 year old male Patient with history of hypertension, hypothyroidism, bolus emphysema. Patient recently admitted to this hospital in April with similar symptoms patient presented to [place] emergency room with increased shortness of breath with exertion that started for the last 2 days with feeling tired . had some chills and some cough sometime productive sometimes blood tinged CTA of the chest there was suggestive of bilateral pneumonia BNP 217 patient was then transferred here for further evaluation and treatment. Denies any chest pain no nausea vomiting. Past Med Surg Social Fam HX - Past Medical History Medical history: COPD, hypertension, thyroid disease Psychiatric history: no psych history - Social History Smoking Status: Former smoker Smokeless Tobacco Status: No Alcohol use: rarely Drug use: none - Family History Mother History Unknown: Yes Father History Unknown: Yes Internal Medicine - H&P: Meds Albuterol Sulfate [Albuterol Inhaler] 1 puff IH Q6HR PRN #1 hfa.aer.ad 04/27/17 [Rx] Atorvastatin Calcium [Lipitor] 20 mg PO DAILY 04/27/17 [History] Clopidogrel [Plavix] 75 mg PO DAILY 04/27/17 [History] Levothyroxine [Synthroid] 125 mcg PO DAILY 04/27/17 [History] Oxymetazoline HCl [Afrin] 1 spray NS QID PRN #1 bottle 04/27/17 [Rx] Saline Nasal [place] [[place] Nasal [place]] 1 appl NS AD PRN 7 Days #1 spray [Rx] amLODIPine [Norvasc] 10 mg PO DAILY 04/27/17 [History] Citalopram Hydrobromide [Celexa] 20 mg PO DAILY 04/28/17 [History] Metoprolol [Lopressor] 50 mg PO DAILY 04/28/17 [History] Umeclidinium Brm/Vilanterol Tr [Anoro Ellipta 62.5-25 Mcg INH] 1 puff IH DAILY 04/28/17 [History] Budesonide/Formoterol 160/4.5 [Symbicort 160/4.5] 2 puff IH BIDR inhaler [Rx] Doxycycline 100 mg PO BID #28 capsule 04/30/17 [Rx] Furosemide [Lasix] 20 mg PO DAILY #30 tablet 04/30/17 [Rx] Ipratropium/Albuterol Neb [Duoneb] 3 ml IH Q4HR PRN #30 vial.neb 04/30/17 [Rx] predniSONE [PredniSONE] 10 mg PO DAILY #84 tablet 04/30/17 [Rx] 3 Allergy/AdvReac Type Severity Reaction Status Date / Time No Known Allergies Allergy Verified 04/27/17 13:08 All Systems PM: A 10-system review of systems was performed and is negative for pertinent findings except as documented above in the HPI. - Respiratory Respiratory exam: Present: rhonchi - Cardiovascular Cardiovascular exam: Present: RRR, +S1, +S2. Absent: diastolic murmur, gallop, rubs, systolic murmur - GI/Abdominal GI/Abdominal exam: Present: normal bowel sounds, soft, no peritoneal signs. Absent: distended, tenderness - Extremities Exam Extremities exam: Present: warm, radial pulses palpable and symmetrical. Absent : calf tenderness, cyanotic, pedal edema - Assessment and plan (1) Acute exacerbation of chronic obstructive airways disease Current Visit: No Status: Acute Assessment and plan: Acute exacerbation of COPD we will place patient on steroids and started on Zosyn for and bilateral pneumonia (2) Bullous emphysema Current Visit: No Status: Acute (3) Diastolic heart failure Current Visit: No Status: Acute Assessment and plan: Recent echo shows EF 60% we will also start on IV Lasix Qualifiers: Heart failure chronicity: acute Qualified Code(s): I50.31 - Acute diastolic (congestive) heart failure (4) HTN (hypertension) Current Visit: No Status: Acute Assessment and plan: Chronic resume home medication Qualifiers: Hypertension type: essential hypertension Qualified Code(s): I10 - Essential (primary) hypertension (5) Hypothyroidism Current Visit: No Status: Acute Assessment and plan: Chronic resume home medication Qualifiers: Hypothyroidism type: unspecified Qualified Code(s): E03.9 - Hypothyroidism , unspecified (6) Pneumonia Current Visit: Yes Status: Acute Assessment and plan: Patient recently in the hospital we will cover with vancomycin and Zosyn and consult pulmonology Qualifiers: Pneumonia type: due to unspecified organism Laterality: bilateral Lung location: lower lobe of lung Qualified Code(s): J18.1 - Lobar pneumonia, unspecified organism - Time Spent With Patient Total time spent is greater than 50% in coordination of care (as documented) at patient's floor/unit and/or counseling patient:
[2017-06-17] MEDS ORDERED: Naloxone 0.4 MG/ML INJ IVP PRN (21:56)
[2017-06-17] MEDS ORDERED: traMADol 50 MG TABLET PO PRN (21:56)
[2017-06-17] MEDS ORDERED: Acetaminophen 325 MG TABLET PO PRN (21:56)
[2017-06-17] MEDS ORDERED: Oxymetazoline Nasal SPRAY BOTTLE NS PRN (21:58)
[2017-06-17] MEDS ORDERED: Ipratropium/Albuterol Neb 3 ML IH PRN (21:59)
[2017-06-17] MEDS ORDERED: Budesonide/Formoterol 160/4.5 MDI IH SCH (22:00)
[2017-06-18] MEDS: Ipratropium/Albuterol Neb 3 ML IH SCH ×7 (00:04→23:13)
[2017-06-18] MEDS: MethylPREDNISolone 40 MG/ML VIAL IVP SCH ×4 (00:13→23:47)
[2017-06-18] MEDS: Piperacillin/Tazobactam 3.375 GM in 0.9 % Sodium Chloride Mini Bag 100 ML IVPB SCH ×4 (00:13→23:47)
[2017-06-18] MEDS: *HR* Enoxaparin 40 MG/0.4 ML SYRINGE SQ SCH (04:35)
[2017-06-18 05:29] LABS: Hematocrit 42.7 % (37.5-50.1); Hemoglobin 14.4 g/dL (12.9-16.9); Mean Corpuscular HGB Conc 33.7 g/dL (31.6-35.5); Mean Corpuscular Hemoglobin 29.3 pg (28.0-33.3); Mean Platelet Volume 11.3 fL (9.4-12.4); Platelet Count 200 K/mcL (140-400); Red Blood Count 4.91 M/mcL (4.19-5.50); Red Cell Distribution Width 14.6 % (11.5-14.5)
[2017-06-18 05:48] LABS: Troponin I 0.03 ng/mL (< 0.04)
[2017-06-18 05:49] LABS: Alanine Aminotransferase 14 Units/L (7-52); Albumin 3.6 g/dL (3.5-5.7); Albumin/Globulin Ratio 1.1 (1.1-2.2); Alkaline Phosphatase 69 Units/L (34-104); Aspartate Amino Transferase 14 Units/L (13-39); BUN/Creatinine Ratio 21 (6-26); Blood Urea Nitrogen 19 mg/dL (8-23); Carbon Dioxide 24 mEq/L (23-29); Chloride 105 mEq/L (98-107); Chol/HDL Ratio 2.4 (0-4.9); Cholesterol 110 mg/dL (< 200); Globulin 3.4 g/dL (2.4-3.5); Glucose 323 mg/dL (70-105); HDL Cholesterol 46 mg/dL (40-59); LDL Cholesterol,Calculated 53 mg/dL (0-99); Magnesium 2.1 mg/dL (1.6-2.6); Osmolality,Calculated 303 (280-300); Sodium 139 mEq/L (136-145); Triglycerides 55 mg/dL (< 150); eGFR For African Americans > 60 (> 60); eGFR For Non-African Americans > 60 (> 60)
[2017-06-18] MEDS ORDERED: Albuterol 2.5 MG/3 ML NEBULIZER IH PRN (07:25)
[2017-06-18] MEDS: Furosemide 40 MG/4 ML VIAL IVP SCH (09:57)
[2017-06-18] MEDS: amLODIPine 5 MG TABLET PO SCH (09:58)
[2017-06-18] MEDS ORDERED: (Anoro Ellipta 62.5-2) IH SCH (10:00)
[2017-06-18] MEDS ORDERED: Saline Nasal Spray 44 ML BOTTLE NS PRN (10:17)
[2017-06-18] MEDS ORDERED: D5% in Water 1,000 ML IVC PRN (12:29)
[2017-06-18] MEDS ORDERED: Dextrose Gel 15 GM/37.5 ML TUBE PO PRN ×2 (12:29)
[2017-06-18] MEDS ORDERED: *HR* Dextrose 50 % in Water (Syg) 50 ML SYRINGE IVP PRN (12:29)
[2017-06-18 13:39] LABS: Estimated Average Glucose 174 mg/dl; Hemoglobin A1C 7.7 %
[2017-06-18] MEDS: Insulin LISPRO 300 UNITS/3 ML VIAL SQ SCH ×3 (16:33→23:48)
--- NOTE | 2017-06-18 23:34 | Internal Med Progress Note ---
Date of Encounter: 06/18/17 Time of Encounter: 14:27 - Assessment and plan (1) HCAP (healthcare-associated pneumonia) Current Visit: Yes Status: Acute Assessment and plan: Continue IV vancomycin and IV zosyn. Continue supplemental O2 PRN; wean as tolerated. Continue nebs. Start mucomyst, guaifenesin, Robitussin DM PRN, and claritin for cough. (2) Acute exacerbation of chronic obstructive airways disease Current Visit: Yes Status: Acute Assessment and plan: Continue IV solumedrol; transition to PO predisone with continued improvement. Continue supplemental O2 PRN; wean as tolerated. Continue nebs. (3) Acute on chronic diastolic (congestive) heart failure Current Visit: Yes Status: Acute Assessment and plan: Continue IV lasix. Monitor strict I&Os and daily weights. (4) HTN (hypertension) Current Visit: Yes Status: Chronic Assessment and plan: Continue home medications. Qualifiers: Hypertension type: essential hypertension Qualified Code(s): I10 - Essential (primary) hypertension (5) Hypothyroidism Current Visit: Yes Status: Chronic Assessment and plan: Continue home medications. Qualifiers: Hypothyroidism type: unspecified Qualified Code(s): E03.9 - Hypothyroidism , unspecified (6) DVT prophylaxis Current Visit: Yes Status: Acute Assessment and plan: Continue lovenox 40 mg SQ QD. - Time Spent With Patient Total time spent is greater than 50% in coordination of care (as documented) at patient's floor/unit and/or counseling patient: less than 15 minutes - Subjective Interval history: Patient had no acute events overnight. He states that he is breathing somewhat better today. He denies chest pain, fever, chills, nausea, vomiting, or abdominal pain. He has no complaints today. - Constitutional Vitals: Temp Pulse Resp BP Pulse Ox 97.6 F 84 14 125/82 89 06/18/17 19:34 06/18/17 19:34 06/18/17 23:13 06/18/17 19:34 06/18/17 23:13 General appearance: Present: cooperative, A&O X 3, pleasant, no acute distress, answers questions appropriately - Respiratory Respiratory exam: Absent: accessory muscle use, rales, rhonchi, wheezes Additional comments: Mildly labored WOB, coarse breath sounds bilaterally - Cardiovascular Cardiovascular exam: Present: RRR, +S1, +S2. Absent: diastolic murmur, gallop, rubs, systolic murmur Additional comments: Trace BLE edema - GI/Abdominal GI/Abdominal exam: Present: normal bowel sounds, soft. Absent: distended, hepatomegaly, mass, splenomegaly, tenderness - Psychiatric Psychiatric exam: Present: normal affect, normal mood. Absent: agitated, anxious, depressed - Skin Skin exam: Present: dry, intact, warm. Absent: cyanosis, rash Internal Medicine: Result - Labs CBC & Chem 7: 06/18/17 05:13 06/18/17 05:13 Labs: Short CBC 06/18/17 Range/Units 05:13 WBC 5.4 (4.3-11.1) K/mcL Hgb 14.4 (12.9-16.9) g/dL Hct 42.7 (37.5-50.1) % Plt Count 200 (140-400) K/mcL BMP 06/18/17 05:13 Sodium 139 Potassium 4.0 Chloride 105 Carbon Dioxide 24 BUN 19 Creatinine 0.91 Glucose 323 H Calcium 9.0 Cardiac Enzymes 06/18/17 06/18/17 Range/Units 05:13 11:19 Troponin I 0.03 < 0.03 (< 0.04) ng/mL Liver Function 06/18/17 Range/Units 05:13 Total Bilirubin 1.0 (0.3-1.0) mg/dL AST 14 (13-39) Units/L ALT 14 (7-52) Units/L Alkaline Phosphatase 69 (34-104) Units/L Albumin 3.6 (3.5-5.7) g/dL Consult Discharge Plan - Plan Referrals: Mady Felipe, [employer] B[employer] OPERATOR [Primary Care Provider] -
[2017-06-19] MEDS: Loratadine 10 MG TABLET PO SCH ×2 (00:58→10:01)
[2017-06-19] MEDS: Acetylcysteine 10% 2 ML INHSOL IH SCH ×5 (02:43→19:48)
[2017-06-19] MEDS: Ipratropium/Albuterol Neb 3 ML IH SCH ×6 (03:39→23:49)
[2017-06-19 05:58] LABS: Basophils % 0.1 %; Hematocrit 40.7 % (37.5-50.1); Hemoglobin 13.6 g/dL (12.9-16.9); Immature Granulocytes % 0.9 % (0-4); Lymphocytes # 0.6 K/mcL (0.6-4.6); Lymphocytes % 4.4 %; Mean Corpuscular HGB Conc 33.4 g/dL (31.6-35.5); Mean Corpuscular Hemoglobin 29.1 pg (28.0-33.3); Mean Corpuscular Volume 87.2 fL (83.0-100.0); Monocytes # 0.3 K/mcL (0.0-1.3); Monocytes % 2.3 %; Platelet Count 230 K/mcL (140-400); Red Blood Count 4.67 M/mcL (4.19-5.50); Red Cell Distribution Width 14.7 % (11.5-14.5); Segmented Neutrophils % 92.3 %
[2017-06-19 06:08] LABS: Neutrophils # 12.7 K/mcL (1.6-8.9)
[2017-06-19] MEDS: *HR* Enoxaparin 40 MG/0.4 ML SYRINGE SQ SCH (06:12)
[2017-06-19 06:18] LABS: BUN/Creatinine Ratio 29 (6-26); Blood Urea Nitrogen 24 mg/dL (8-23); Calcium 8.9 mg/dL (8.6-10.3); Carbon Dioxide 28 mEq/L (23-29); Chloride 103 mEq/L (98-107); Glucose 278 mg/dL (70-105); Osmolality,Calculated 302 (280-300); Potassium 3.9 mEq/L (3.5-5.1); Sodium 139 mEq/L (136-145); eGFR For African Americans > 60 (> 60); eGFR For Non-African Americans > 60 (> 60)
[2017-06-19] MEDS: Insulin LISPRO 300 UNITS/3 ML VIAL SQ SCH ×4 (08:36→21:41)
[2017-06-19] MEDS: amLODIPine 5 MG TABLET PO SCH (09:59)
[2017-06-19] MEDS: Piperacillin/Tazobactam 3.375 GM in 0.9 % Sodium Chloride Mini Bag 100 ML IVPB SCH ×3 (10:01→23:58)
[2017-06-19] MEDS: Furosemide 40 MG/4 ML VIAL IVP SCH (10:03)
[2017-06-19] MEDS: MethylPREDNISolone 40 MG/ML VIAL IVP SCH ×3 (10:03→23:57)
--- NOTE | 2017-06-19 23:06 | Internal Med Progress Note ---
Date of Encounter: 06/19/17 Time of Encounter: 19:07 - Assessment and plan (1) HCAP (healthcare-associated pneumonia) Current Visit: Yes Status: Acute Assessment and plan: Improving. Continue IV vancomycin and IV zosyn. Continue supplemental O2 PRN; wean as tolerated. Continue nebs. Continue mucomyst, guaifenesin, Robitussin DM PRN, and claritin for cough. (2) Acute exacerbation of chronic obstructive airways disease Current Visit: Yes Status: Acute Assessment and plan: Continue IV solumedrol; transition to PO predisone tomorrow with continued improvement. Continue supplemental O2 PRN; wean as tolerated. Continue nebs. (3) Acute on chronic diastolic (congestive) heart failure Current Visit: Yes Status: Acute Assessment and plan: Continue IV lasix. Monitor strict I&Os and daily weights. (4) HTN (hypertension) Current Visit: Yes Status: Chronic Assessment and plan: Continue home medications. Qualifiers: Hypertension type: essential hypertension Qualified Code(s): I10 - Essential (primary) hypertension (5) Hypothyroidism Current Visit: Yes Status: Chronic Assessment and plan: Continue home medications. Qualifiers: Hypothyroidism type: unspecified Qualified Code(s): E03.9 - Hypothyroidism , unspecified (6) DVT prophylaxis Current Visit: Yes Status: Acute Assessment and plan: Continue lovenox 40 mg SQ QD. - Time Spent With Patient Total time spent is greater than 50% in coordination of care (as documented) at patient's floor/unit and/or counseling patient: less than 15 minutes - Subjective Interval history: Patient had no acute events overnight. He states that he is breathing much better today. He denies chest pain, fever, chills, nausea, vomiting, or abdominal pain. He has no complaints today. - Constitutional Vitals: Temp Pulse Resp BP Pulse Ox 97.7 F 75 16 113/69 92 06/19/17 19:18 06/19/17 19:18 06/19/17 19:47 06/19/17 19:18 06/19/17 19:47 General appearance: Present: cooperative, A&O X 3, pleasant, no acute distress, answers questions appropriately - Respiratory Respiratory exam: Absent: accessory muscle use, rales, rhonchi, wheezes Additional comments: Mildly labored WOB, coarse breath sounds bilaterally - Cardiovascular Cardiovascular exam: Present: RRR, +S1, +S2. Absent: diastolic murmur, gallop, rubs, systolic murmur Additional comments: Trace BLE edema - GI/Abdominal GI/Abdominal exam: Present: normal bowel sounds, soft. Absent: distended, hepatomegaly, mass, splenomegaly, tenderness - Psychiatric Psychiatric exam: Present: normal affect, normal mood. Absent: agitated, anxious, depressed - Skin Skin exam: Present: dry, intact, warm. Absent: cyanosis, rash Internal Medicine: Result - Labs CBC & Chem 7: 06/19/17 05:20 06/19/17 05:20 Labs: Short CBC 06/19/17 Range/Units 05:20 WBC 13.7 H D (4.3-11.1) K/mcL Hgb 13.6 (12.9-16.9) g/dL Hct 40.7 (37.5-50.1) % Plt Count 230 (140-400) K/mcL Neutrophils # 12.7 H (1.6-8.9) K/mcL BMP 06/19/17 05:20 Sodium 139 Potassium 3.9 Chloride 103 Carbon Dioxide 28 BUN 24 H Creatinine 0.84 Glucose 278 H Calcium 8.9 Consult Discharge Plan - Plan Referrals: Mady Felipe, [employer] F[employer]ER [Primary Care Provider] -
[2017-06-20 00:47] LABS: Basophils % 0.1 %; Hemoglobin 13.5 g/dL (12.9-16.9); Lymphocytes # 0.8 K/mcL (0.6-4.6); Lymphocytes % 5.2 %; Mean Corpuscular HGB Conc 33.8 g/dL (31.6-35.5); Mean Corpuscular Hemoglobin 29.3 pg (28.0-33.3); Mean Corpuscular Volume 86.8 fL (83.0-100.0); Mean Platelet Volume 10.8 fL (9.4-12.4); Monocytes # 0.5 K/mcL (0.0-1.3); Monocytes % 3.1 %; Neutrophils # 13.1 K/mcL (1.6-8.9); Platelet Count 234 K/mcL (140-400); Red Blood Count 4.61 M/mcL (4.19-5.50); Red Cell Distribution Width 14.7 % (11.5-14.5); Segmented Neutrophils % 90.6 %
[2017-06-20 01:05] LABS: BUN/Creatinine Ratio 26 (6-26); Blood Urea Nitrogen 31 mg/dL (8-23); Carbon Dioxide 31 mEq/L (23-29); Chloride 101 mEq/L (98-107); Glucose 235 mg/dL (70-105); Potassium 3.9 mEq/L (3.5-5.1); Sodium 137 mEq/L (136-145); eGFR For African Americans > 60 (> 60); eGFR For Non-African Americans > 60 (> 60)
[2017-06-20 01:06] LABS: Calcium 8.9 mg/dL (8.6-10.3); Osmolality,Calculated 298 (280-300)
[2017-06-20] MEDS: Acetylcysteine 10% 2 ML INHSOL IH SCH ×4 (03:35→20:15)
[2017-06-20] MEDS: Ipratropium/Albuterol Neb 3 ML IH SCH ×6 (03:35→23:31)
[2017-06-20] MEDS: *HR* Enoxaparin 40 MG/0.4 ML SYRINGE SQ SCH (05:32)
[2017-06-20] MEDS: MethylPREDNISolone 40 MG/ML VIAL IVP SCH (08:10)
[2017-06-20] MEDS: Furosemide 40 MG/4 ML VIAL IVP SCH (08:10)
[2017-06-20] MEDS: Loratadine 10 MG TABLET PO SCH (08:10)
[2017-06-20] MEDS: Insulin LISPRO 300 UNITS/3 ML VIAL SQ SCH ×4 (08:10→21:46)
[2017-06-20] MEDS: Piperacillin/Tazobactam 3.375 GM in 0.9 % Sodium Chloride Mini Bag 100 ML IVPB SCH (08:11)
[2017-06-20] MEDS: amLODIPine 5 MG TABLET PO SCH (08:11)
[2017-06-20] MEDS ORDERED: Aminoglycoside Consult 1 EACH MC ONE (12:44)
--- NOTE | 2017-06-20 14:20 | Internal Med Progress Note ---
Date of Encounter: 06/20/17 Time of Encounter: 14:17 - Assessment and plan (1) HCAP (healthcare-associated pneumonia) Current Visit: Yes Status: Acute Assessment and plan: Improving. Discontinue IV vancomycin and IV zosyn. Start levaquin 750 mg PO QD. Continue supplemental O2 PRN; wean as tolerated. Continue nebs. Continue mucomyst, guaifenesin, Robitussin DM PRN, and claritin for cough. (2) Acute exacerbation of chronic obstructive airways disease Current Visit: Yes Status: Acute Assessment and plan: Improving. Discontinue IV solumedrol; transition to prednisone 40 mg PO BID. Continue supplemental O2 PRN; wean as tolerated. Continue nebs. (3) Acute on chronic diastolic (congestive) heart failure Current Visit: Yes Status: Acute Assessment and plan: Improving. Discontinue IV lasix; start lasix 40 mg PO QD. Monitor strict I&Os and daily weights. (4) HTN (hypertension) Current Visit: Yes Status: Chronic Assessment and plan: Continue home medications. Qualifiers: Hypertension type: essential hypertension Qualified Code(s): I10 - Essential (primary) hypertension (5) Hypothyroidism Current Visit: Yes Status: Chronic Assessment and plan: Continue home medications. Qualifiers: Hypothyroidism type: unspecified Qualified Code(s): E03.9 - Hypothyroidism , unspecified (6) Type II diabetes mellitus Current Visit: Yes Status: Acute Assessment and plan: New diagnosis. Continue accuchecks and moderate dose SSI QID AC/HS. Will discharge home on metformin with close PCP follow up. Qualifiers: Diabetes mellitus terminal system operator insulin use: without prison use Diabetes mellitus complication status: without complication Qualified Code(s): E11.9 - Type 2 diabetes mellitus without complications (7) DVT prophylaxis Current Visit: Yes Status: Acute Assessment and plan: Continue lovenox 40 mg SQ QD. - Time Spent With Patient Total time spent is greater than 50% in coordination of care (as documented) at patient's floor/unit and/or counseling patient: less than 15 minutes - Subjective Interval history: Patient had no acute events overnight. He states that his breathing continues to improve; now only SOB when exerting himself. He denies chest pain, fever, chills, nausea, vomiting, or abdominal pain. He has no complaints today. - Constitutional Vitals: Temp Pulse Resp BP Pulse Ox 97.8 F 84 17 124/80 91 06/20/17 11:37 06/20/17 11:37 06/20/17 11:37 06/20/17 11:37 06/20/17 11:37 General appearance: Present: cooperative, A&O X 3, pleasant, no acute distress, answers questions appropriately - Respiratory Respiratory exam: Absent: accessory muscle use, rales, rhonchi, wheezes Additional comments: Mildly labored WOB, coarse breath sounds bilaterally - Cardiovascular Cardiovascular exam: Present: RRR, +S1, +S2. Absent: diastolic murmur, gallop, rubs, systolic murmur Additional comments: Trace BLE edema - GI/Abdominal GI/Abdominal exam: Present: normal bowel sounds, soft. Absent: distended, hepatomegaly, mass, splenomegaly, tenderness - Psychiatric Psychiatric exam: Present: normal affect, normal mood. Absent: agitated, anxious, depressed - Skin Skin exam: Present: dry, intact, warm. Absent: cyanosis, rash Internal Medicine: Result - Labs CBC & Chem 7: 06/20/17 00:25 06/20/17 00:25 Labs: Short CBC 06/20/17 Range/Units 00:25 WBC 14.4 H (4.3-11.1) K/mcL Hgb 13.5 (12.9-16.9) g/dL Hct 40.0 (37.5-50.1) % Plt Count 234 (140-400) K/mcL Neutrophils # 13.1 H (1.6-8.9) K/mcL BMP 06/20/17 00:25 Sodium 137 Potassium 3.9 Chloride 101 Carbon Dioxide 31 H BUN 31 H Creatinine 1.17 Glucose 235 H Calcium 8.9 Consult Discharge Plan - Plan Referrals: Mady Felipe, SOFTWARE ENGINEER INTERN [Primary Care Provider] -
[2017-06-20] MEDS: levoFLOXacin 750 MG TABLET PO SCH (16:35)
[2017-06-20] MEDS: predniSONE 20 MG TABLET PO SCH (16:35)
[2017-06-21] MEDS: Acetylcysteine 10% 2 ML INHSOL IH SCH (04:21)
[2017-06-21] MEDS: Ipratropium/Albuterol Neb 3 ML IH SCH ×2 (04:21→10:03)
[2017-06-21 04:39] LABS: Basophils % 0.1 %; Hematocrit 44.6 % (37.5-50.1); Hemoglobin 14.4 g/dL (12.9-16.9); Immature Granulocytes % 1.3 % (0-4); Lymphocytes # 0.9 K/mcL (0.6-4.6); Mean Corpuscular HGB Conc 32.3 g/dL (31.6-35.5); Mean Corpuscular Hemoglobin 28.6 pg (28.0-33.3); Mean Corpuscular Volume 88.5 fL (83.0-100.0); Mean Platelet Volume 10.9 fL (9.4-12.4); Monocytes # 0.6 K/mcL (0.0-1.3); Monocytes % 5.5 %; Neutrophils # 9.7 K/mcL (1.6-8.9); Platelet Count 235 K/mcL (140-400); Red Blood Count 5.04 M/mcL (4.19-5.50); Red Cell Distribution Width 14.8 % (11.5-14.5); Segmented Neutrophils % 85.1 %
[2017-06-21] MEDS: *HR* Enoxaparin 40 MG/0.4 ML SYRINGE SQ SCH (05:23)
[2017-06-21] MEDS: predniSONE 20 MG TABLET PO SCH (07:40)
[2017-06-21] MEDS: Loratadine 10 MG TABLET PO SCH (07:40)
[2017-06-21] MEDS: Insulin LISPRO 300 UNITS/3 ML VIAL SQ SCH ×2 (07:40→12:19)
[2017-06-21] MEDS: levoFLOXacin 750 MG TABLET PO SCH (07:40)
[2017-06-21] MEDS: amLODIPine 5 MG TABLET PO SCH (07:40)
[2017-06-21] MEDS ORDERED: Furosemide 40 MG TABLET PO SCH (09:00)
[2017-06-21] MEDS ORDERED: Ipratropium/Albuterol Neb 3 ML IH SCH (10:00)
[2017-06-21 10:46] VITALS: BP 124/82
--- NOTE | 2017-06-21 11:24 | Discharge Summary ---
- NOTES TO OUTPATIENT PROVIDER Notes to Outpatient Provider: Follow up with PCP in 2-3 days after discharge. Wean supplemental O2 to RA as tolerated. Check blood glucose at follow up (new diagnosis of Type II DM while hospitalized; discharged on metformin 500 mg BID) , and adjust medication as necessary. Date of Encounter: 06/21/17 Time of Encounter: 11:22 - Discharge Diagnosis (1) HCAP (healthcare-associated pneumonia) Priority: Primary Status: Acute (2) Acute exacerbation of chronic obstructive airways disease Priority: Secondary Status: Acute (3) Acute on chronic diastolic (congestive) heart failure Priority: Secondary Status: Acute (4) HTN (hypertension) Priority: Secondary Status: Chronic Qualifiers: Hypertension type: essential hypertension Qualified Code(s): I10 - Essential (primary) hypertension (5) Hypothyroidism Priority: Secondary Status: Chronic Qualifiers: Hypothyroidism type: unspecified Qualified Code(s): E03.9 - Hypothyroidism , unspecified (6) Type II diabetes mellitus Priority: Secondary Status: Acute Qualifiers: Diabetes mellitus halfway insulin use: without halfway use Diabetes mellitus complication status: without complication Qualified Code(s): E11.9 - Type 2 diabetes mellitus without complications (7) DVT prophylaxis Priority: Secondary Status: Acute Hospital course: Mr. Mosher is a 72 year old white male admitted for HCAP, acute exacerbation of COPD, and acute on chronic diastolic CHF. He was admitted to general medical floor with telemetry and started on IV vancomyicin and IV zosyn, IV solumedrol, nebulizer treatments, and IV lasix. He was placed on supplemental oxygen. Respiratory status improved throughout admission. He was weaned off of supplemental oxygen down to 1.5 L NC on day of discharge. IV antibiotics were deescalated to PO levaquin. IV solumedrol was tapered and transitioned to PO prednison. IV lasix was discontinued with good urine output. He will be discharged home with 2 more days of PO levaquin, a prednisone taper, and supplemental oxygen to be weaned to room air. He had new diagnosis of Type II DM during this hospitalization with A1C of 7.7. He received insulin while hospitalized as he was on high dose steroids. He will be discharged home on metformin 500 mg BID with meals. He will follow up with PCP in 2-3 days after discharged. Repeat blood glucose can be checked at that time and DM medication adjusted as necessary. Patient has met maximum benefit of this hospitalization and will be discharged home in stable condition. Discharge discussed with: patient, family, nurse - Time Spent with Patient Total time spent providing and/or coordinating discharge services: Greater than 30 minutes - Discharge Medications Prescriptions: levoFLOXacin [Levaquin] 750 mg PO DAILY 2 Days #2 tablet metFORMIN [Glucophage] 500 mg PO BIDWM 7 Days #14 tablet predniSONE [PredniSONE] See Taper PO BIDWM 12 Days #28 tablet Home Medications: Albuterol Sulfate [Albuterol Inhaler] 1 puff IH Q6HR PRN #1 hfa.aer.ad 04/27/17 [Rx] Atorvastatin Calcium [Lipitor] 20 mg PO DAILY 04/27/17 [History] Clopidogrel [Plavix] 75 mg PO DAILY 04/27/17 [History] Levothyroxine [Synthroid] 125 mcg PO DAILY 04/27/17 [History] Oxymetazoline HCl [Afrin] 1 spray NS QID PRN #1 bottle 04/27/17 [Rx] amLODIPine [Norvasc] 10 mg PO DAILY 04/27/17 [History] Citalopram Hydrobromide [Celexa] 20 mg PO DAILY 04/28/17 [History] Metoprolol [Lopressor] 50 mg PO DAILY 04/28/17 [History] Umeclidinium Brm/Vilanterol Tr [Anoro Ellipta 62.5-25 Mcg INH] 1 puff IH DAILY 04/28/17 [History] Ipratropium/Albuterol Neb [Duoneb] 3 ml IH Q4HR PRN #30 vial.neb 04/30/17 [Rx] levoFLOXacin [Levaquin] 750 mg PO DAILY 2 Days #2 tablet 06/21/17 [Rx] metFORMIN [Glucophage] 500 mg PO BIDWM 7 Days #14 tablet 06/21/17 [Rx] predniSONE [PredniSONE] See Taper PO BIDWM 12 Days #28 tablet 06/21/17 [Rx] Allergies/Adverse Reactions: 3 Allergy/AdvReac Type Severity Reaction Status Date / Time No Known Allergies Allergy Verified 06/18/17 07:45 Date of admission: 06/17/17 21:56 Primary care physician: Mady Felipe CNP Consults: 06/17/17 22:00 Consult to Pulmonology [CONS] Routine Consulting Provider: [facility] [place] Reason for Consult: copd/bilat pneumonia Call Completed: No 06/18/17 08:30 Consult to Nurse Navigator [CONS] Routine Comment: CHF 06/18/17 12:29 Consult to Diabetes Education [CONS] Stat Comment: Reason for Consult: Diabetic Diet Education Discharging clinician: Ken Stevenson Anticipated date of discharge: 06/21/17 - Constitutional Vitals: Temp Pulse Resp BP Pulse Ox 97.4 F L 73 18 124/82 98 06/21/17 10:44 06/21/17 10:44 06/21/17 10:44 06/21/17 10:44 06/21/17 10:44 General appearance: Present: cooperative, A&O X 3, pleasant, no acute distress, answers questions appropriately - Respiratory Respiratory exam: Present: CTAB. Absent: accessory muscle use, rales, rhonchi, wheezes Additional comments: Normal WOB - Cardiovascular Cardiovascular exam: Present: RRR, +S1, +S2. Absent: diastolic murmur, gallop, rubs, systolic murmur Additional comments: No BLE edema - GI/Abdominal GI/Abdominal exam: Present: normal bowel sounds, soft. Absent: distended, hepatomegaly, mass, splenomegaly, tenderness - Psychiatric Psychiatric exam: Present: normal affect, normal mood. Absent: agitated, anxious, depressed - Skin Skin exam: Present: dry, intact, warm. Absent: cyanosis, rash - Patient Status Disposition: Home, Self-Care Condition: Good Functional capacity at discharge: independent ambulation Overall status at discharge: patient is progressing back to baseline - Discharge Instructions Follow Up With: Mady Felipe NURSE PRACTITIONER MANAGER [Primary Care Provider] - Additional Instructions: Follow up with PCP in 2-3 days after discharge. Wean supplemental O2 to RA as tolerated. Check blood glucose at follow up (new diagnosis of Type II DM while hospitalized; discharged on metformin 500 mg BID), and adjust medication as necessary. - Diet and Activity Activity: resume usual activities as tolerated, wear oxygen at all times (Wean to room air as tolerated) Diet: diabetic diet, low fat, low cholesterol, low salt diet, other (Cardiac Diet)
== END 2017-06-21 12:45 | disposition home or self-care (01) | DRG 291 ==
LOC: 2ANU
PROVIDERS: ADMIT Registered Nurse; ATTEND Registered Nurse

== ENCOUNTER 2018-07-02 17:01 | Inpatient (IN) ==
[2018-07-02] MEDS ORDERED: Naloxone 0.4 MG/ML INJ IVP PRN ×2 (21:01→23:43)
[2018-07-02] MEDS ORDERED: Acetaminophen 325 MG TABLET PO PRN (21:01)
[2018-07-02] MEDS ORDERED: D5% in Water 1,000 ML IVC PRN (22:02)
[2018-07-02] MEDS ORDERED: Dextrose Gel 15 GM/37.5 ML TUBE PO PRN ×2 (22:02)
[2018-07-02] MEDS ORDERED: *HR* Dextrose 50 % in Water (Syg) 50 ML SYRINGE IVP PRN (22:02)
--- NOTE | 2018-07-02 22:07 | Internal Med History&Physical ---
<Diane Huddleston - Last Filed: 07/02/18 23:11> Date of Encounter: 07/02/18 Time of Encounter: 21:00 Internal Medicine - H&P: HPI Chief complaint: shortness of breath History of present illness: Mr. Mosher is a 73 year old male past medical history severe hypertension, pulmonary fibrosis, emphysema, CAD, hypertension, hypothyroidism, hyperlipidemia and history of [place] with 3 stents 20 years ago who presented to [facility] complaining of worsening shortness of breath. She is on 4 L of nasal cannula at rest and requires 8 L with activity. He reports for the past few days his shortness of breath has been worsening and today his oxygen actuation was 60% with 4 L of nasal cannula. He reports turning it up to 6 L with no resolution of his symptoms. He is denying any recent sick contacts. He also denies fever, chills, new cough or chest pain. He is denying recent travel or immobility but reports that he is not very active due to increase in his oxygen requirement with activity. He is also denying any orthopnea, PND or palpitations. At [facility] ED h his white count was noted to be 11.7 is on chronic 10 mg of prednisone at home. He was also noted to have troponin of 0.37 but denies any chest pain. His BNP was noted to be 977 denies any recent leg swelling. He also has a chest x-ray which showed new patchy airspace opacities of lung bilaterally concerning for multifocal infiltrates. He had an echo on 04/29/17 which showed EF of 60% with moderate dilated left atrium and severe pulmonary hypertension. Past Med Surg Social Fam HX - Past Medical History Medical history: COPD, diabetes, hyperlipidemia, hypertension, thyroid disease Psychiatric history: depression - Past Surgical History Additional surgical history: 3 cardiac stents, left shoulder surg, hernia repair - Social History Smoking Status: Former smoker ([id number] history, quit 20 years ago) Smokeless Tobacco Status: No Alcohol use: rarely Drug use: none - Family History Mother Hx Family Cardiac Disorders: Yes (HTN) Internal Medicine - H&P: Meds Albuterol Sulfate [Albuterol Inhaler] 1 puff IH Q6HR PRN #1 hfa.aer.ad 04/27/17 [Rx] Atorvastatin Calcium [Lipitor] 20 mg PO DAILY 04/27/17 [History] Clopidogrel [Plavix] 75 mg PO DAILY 04/27/17 [History] Levothyroxine [Synthroid] 125 mcg PO DAILY 04/27/17 [History] amLODIPine [Norvasc] 10 mg PO DAILY 04/27/17 [History] Citalopram Hydrobromide [Celexa] 20 mg PO DAILY 04/28/17 [History] Metoprolol [Lopressor] 25 mg PO BID 04/28/17 [History] Ipratropium/Albuterol Neb [Duoneb] 3 ml IH Q4HR PRN #30 vial.neb 04/30/17 [Rx] Benzonatate 200 mg PO TID 07/02/18 [History] Fluticasone Propionate [Flovent Hfa] 1 puff PO BID 07/02/18 [History] Metformin HCl [Glucophage Xr] 750 mg PO DAILY 07/02/18 [History] Olopatadine HCl [Patanol] 1 drop BOTH EYES BID 07/02/18 [History] Roflumilast [Daliresp] 500 mcg PO DAILY 07/02/18 [History] predniSONE [PredniSONE] 10 mg PO DAILY 07/02/18 [History] Allergy/AdvReac Type Severity Reaction Status Date / Time No Known Allergies Allergy Verified 07/02/18 15:59 All Systems PM: A 10-system review of systems was performed and is negative for pertinent findings except as documented above in the HPI. - Constitutional Constitutional: no chills, no fever(s), no weakness, no weight loss - EENT Eyes: no change in vision, no loss of vision, no pain Nose, mouth and throat: no dysphagia, no nasal congestion, no sinus pain, no sore throat - Cardiovascular Cardiovascular ROS IM: dyspnea, dyspnea on exertion, no diaphoresis, no edema, no orthopnea, no palpitations - Respiratory Respiratory: cough (chronic unchanged), dyspnea, no wheezing, no pain on inspiration, no chest congestion - Gastrointestinal Gastrointestinal: no abdominal pain, no constipation, no diarrhea, no dysphagia, no hematemesis, no hematochezia, no nausea - Genitourinary Genitourinary ROS male: no dysuria, no hematuria, no urinary hesitancy - Musculoskeletal Musculoskeletal ROS IM: no muscle weakness, no numbness, no stiffness, no tingling - Integumentary Integumentary IM: no erythema, no pruritus, no rash - Neurological Neurological ROS: no focal weakness, no numbness, no tremor(s), no weakness - Hematologic/Lymphatic Hematologic/Lymphatic: no easy bleeding, no easy bruising - Constitutional Vitals: Temp Pulse Resp BP Pulse Ox 98.2 F 78 17 147/110 93 07/02/18 20:47 07/02/18 20:47 07/02/18 20:47 07/02/18 20:47 07/02/18 20:47 Exam: Gen: Vitals noted. No acute distress. Appears comfortable. Eyes: anicteric sclerae, moist conjunctivae; no lid-lag HENT: Atraumatic; oropharynx clear with moist mucous membranes and no mucosal ulcerations; normal hard and soft palate Neck: Trachea midline; supple, no thyromegaly or lymphadenopathy Cardiac: RRR, no murmur, +S1/S2. No JVD noted. Pulmonary: Clear to auscultation but decreased expiratory aeration, no wheezes, rales or rhonchi, equal chest expansion Abdomen: soft, nontender, no guarding. No masses or hepatosplenomegaly MSK: ROM intact, no joint swelling noted Extremities: no edema, nontender calf Skin: Normal temperature, turgor; no rash, ulcers or subcutaneous nodules Neuro: moves all extremities, no focal deficits. Psych: Appropriate mood and behavior. A&Ox3 - Assessment and Plan (1) Acute on chronic respiratory failure with hypoxia Current Visit: Yes Status: Acute Assessment and plan: Presented to the outside ED complaining of shortness of breath and oxygen saturation was noted to be 72% on 6 L of nasal cannula. Likely multifactorial etiology given underlying chronic illnesses He does have his chronic history of emphysema with severe pulmonary hypertension requires oxygen at home uses 4 L at rest and 8 L with activity. ABG showed pH of 7.46 with with no CO2 retention, PCO2 of 30 Denies any recent illnesses or sick contact -Continue BiPAP -Continue IV Solu-Medrol 40 mg every 8 hour -Continue azithromycin anti-inflammatory properties -Continue ceftriaxone to cover for suspected community-acquired pneumonia -See Levaquin an outside facility -Cultures pending -urine Legionella and strep pneumonia antigen pending -Pulmonology consulted (2) Emphysema lung Current Visit: Yes Status: Chronic Assessment and plan: CT from 2 months ago shows severe emphysema with bullae bilateral lung Appears to have exacerbation of underlying emphysema 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 Had a current smoker, quit 20 years ago [id number] history -Continue DuoNeb -Continue IV Solu-Medrol -Pulmonology consulted Qualifiers: Emphysema type: panlobular Qualified Code(s): J43.1 - Panlobular emphysema (3) Elevated brain natriuretic peptide (BNP) level Current Visit: Yes Status: Acute Assessment and plan: BNP at outside facility noted to be 977 Is not on any diuretics at home Teach acute elevation of BNP 20 mg of IV Lasix given Continue monitoring renal function, BMP in the morning (4) Pulmonary hypertension Current Visit: No Status: Chronic Assessment and plan: History of severe pulmonary hypertension based on echo 1 year ago Likely attributing to worsening shortness of breath Continue BiPAP with nasal cannula trial of tolerated (5) Elevated troponin Current Visit: Yes Status: Acute Assessment and plan: Noted to have troponin of 0.37 outside facility Troponin could be elevated due to demand ischemia given his severe pulmonary hypertension and ongoing hypoxia at home prior to presenting to the ED EKG showed new right bundle branch block also noted to have less effect is deviation Denies any chest pain at rest or with exertion He received therapeutic dose of Lovenox at [facility] Repeat troponin was noted to be 0.26 Previous echo was over one year ago We will repeat echo, depending on echo results consider cardiology consultative deemed necessary (6) Pulmonary fibrosis Current Visit: Yes Status: Chronic Assessment and plan: Noted to have history of pulmonary fibrosis upon outpatient chart review No previous bronchoscopy noted, unknown etiology but could be secondary to occupational exposure Pulmonology consulted further recommendations (7) HTN (hypertension) Current Visit: No Status: Chronic Assessment and plan: History of hypertension, continue home amlodipine with when necessary hydralazine Qualifiers: Hypertension type: essential hypertension Qualified Code(s): I10 - Essential (primary) hypertension (8) Hypothyroidism Current Visit: No Status: Chronic Assessment and plan: Noted to have history of hypothyroidism upon medication review unsure if he is currently taking levothyroxine TSH pending Consider adding levothyroxine after medication reconciliation Qualifiers: Hypothyroidism type: unspecified Qualified Code(s): E03.9 - Hypothyroidism, unspecified (9) Hyperlipidemia Current Visit: Yes Status: Chronic Assessment and plan: Continue home atorvastatin Qualifiers: Hyperlipidemia type: unspecified Qualified Code(s): E78.5 - Hyperlipidemia, unspecified (10) Type II diabetes mellitus Current Visit: No Status: Chronic Assessment and plan: Continue diabetic diet Spoke with respiratory to trial nasal cannula during meals Qualifiers: Diabetes mellitus terminal carman insulin use: without terminal carman use Diabetes mellitus complication status: without complication Qualified Code(s): E11.9 - Type 2 diabetes mellitus without complications (11) DVT prophylaxis Current Visit: No Status: Acute Assessment and plan: Continue subcutaneous heparin - Time Spent With Patient Total time spent is greater than 50% in coordination of care (as documented) at patient's floor/unit and/or counseling patient: <Luke Monterroso - Last Filed: 07/03/18 05:43> Date of Encounter: 07/02/18 Internal Medicine - H&P: HPI History of present illness: Mr. Mosher is a 73 year old male All Systems PM: A 10-system review of systems was performed and is negative for pertinent findings except as documented above in the HPI. - Constitutional Vitals: Temp Pulse Resp BP Pulse Ox 97.8 F 88 16 131/95 95 07/03/18 00:39 07/03/18 00:39 07/03/18 03:28 07/03/18 03:28 07/03/18 03:28 Internal Med - H&P Results - Labs Labs: Cardiac Enzymes 07/02/18 Range/Units 22:11 Troponin I 0.26 H* (< 0.04) ng/mL - Time Spent With Patient Total time spent is greater than 50% in coordination of care (as documented) at patient's floor/unit and/or counseling patient: - Attending Attestation I performed a history and physical examination of the patient and discussed his management with the resident. I reviewed the resident's note and agree with the documented plan of care. Patient is a 73-year-old male with a past medical history of severe pulmonary hypertension, pulmonary fibrosis, severe emphysema with bulla and coronary artery disease/[place] among others who presented with worsening shortness of breath with exertion. Found to be in acute on chronic hypoxic respiratory failure. Patient responded to BiPAP. ABG performed at [place] showed PO2 of 34, PCO2 of 30 and pH of 7.46. Troponin found to be mildly elevated at 0.26. EKG showed no ST or T-wave changes however right bundle branch block was noted on EKG interpretation which appears to be new finding. BNP found to be elevated at 977. Patient did receive 1 time dose of Lovenox. No reports of fever, worsening cough, orthopnea, PND, lower extremity edema. No recent surgery, travel or prior history of blood clots. Laboratory workup notable for a mild leukocytosis of 11.7. D-dimer of 412. Etiology of patient's acute respiratory failure unclear. Differential includes COPD exacerbation, pneumonia, CHF, versus progression of underlying lung disease versus ACS. Patient started on antibiotics for CAP; DuoNeb's and steroids. Given elevated BNP and concern for contributing vascular congestion, will give 1 time dose of Lasix 20 mg IV taking into account patient's severe pulmonary hypertension. We will trend troponin. Appreciate pulmonary input.
[2018-07-02] MEDS: Ipratropium/Albuterol Neb 3 ML IH SCH (22:52)
[2018-07-02] MEDS: Azithromycin 250 MG TABLET PO SCH (23:14)
[2018-07-02] MEDS: cefTRIAXone 1,000 MG in Water for inj. (sterile) 20 ML 10 ML IVP SCH (23:14)
[2018-07-02] MEDS: MethylPREDNISolone 40 MG/ML VIAL IVP SCH (23:14)
[2018-07-02] MEDS ORDERED: Furosemide 20 MG/2 ML VIAL IVP ONE (23:15)
[2018-07-03] MEDS: Insulin LISPRO 300 UNITS/3 ML VIAL SQ SCH ×6 (00:42→21:02)
[2018-07-03] MEDS: Ipratropium/Albuterol Neb 3 ML IH SCH ×4 (03:28→21:37)
[2018-07-03] MEDS ORDERED: D5% in Water 1,000 ML IVC PRN (06:10)
[2018-07-03] MEDS ORDERED: *HR* Dextrose 50 % in Water (Syg) 50 ML SYRINGE IVP PRN (06:10)
[2018-07-03] MEDS ORDERED: Dextrose Gel 15 GM/37.5 ML TUBE PO PRN ×2 (06:10)
[2018-07-03] MEDS: MethylPREDNISolone 40 MG/ML VIAL IVP SCH ×3 (06:19→21:03)
[2018-07-03] MEDS: *HR* Heparin 5,000 UNIT/ML VIAL SQ SCH ×2 (06:19→17:02)
[2018-07-03] MEDS: cefTRIAXone 1,000 MG in Water for inj. (sterile) 20 ML 10 ML IVP SCH (07:47)
[2018-07-03] MEDS: amLODIPine 5 MG TABLET PO SCH (07:47)
[2018-07-03] MEDS: Azithromycin 250 MG TABLET PO SCH (07:47)
--- NOTE | 2018-07-03 10:09 | Pulmonology Consult Note ---
Date of Encounter: 07/03/18 Time of Encounter: 07:35 Assessment and Plan (1) Acute exacerbation of chronic obstructive airways disease Current Visit: No Status: Acute Overall there is some improvement and patient is feeling slightly better on current treatment, I would recommend to increase his systemic steroid, in that will be no further improvement in his hypoxia in next 24 hours. We will add Symbicort to his current treatment. Empiric coverage with antibiotics also is reasonable. The patient tolerated diuresis that would be helpful as well. Continue noninvasive ventilation as long as patient is tolerating And that can be used as needed as well. Discussed with patient and and his family at the bedside to make sure not to cancel his appointment in the future especially when his discharge from the hospital and they understand that. Thank you for consultation and please call for any questions. Patient needs to follow-up as outpatient when he is ready to be discharged home. I have explained to the nurse to continue wean off FiO2 to keep SPO2 around 90%. (2) Pneumonia Current Visit: No Status: Acute Empiric antibiotic is appropriate and follow-up cultures. Qualifiers: Pneumonia type: due to unspecified organism Laterality: bilateral Lung location: lower lobe of lung Qualified Code(s): J18.1 - Lobar pneumonia, unspecified organism (3) Acute on chronic respiratory failure with hypoxia Current Visit: Yes Status: Acute History of Present Illness Consult date: 07/03/18 Requesting physician: Diane Huddleston Reason for consult: dyspnea Chief complaint: Dyspnea History of present illness: This is a very pleasant 73-year-old male with history of pulmonary emphysema and chronic hypoxic respiratory failure and he follows up as outpatient in the pulmonary clinic. Patient was doing good to the point that he canceled his appointment in the clinic. Patient has been having trouble breathing for about a week and he is having shortness of breath and is being ongoing long-term oxygen therapy at home at 4 lpm and he was found significantly hypoxic when he presented to outside hospital. He denies any fever or chills and denies any chest pain. Patient was placed on noninvasive ventilation and he was improving and now he is on 8 L high flow oxygen. Patient has exacerbations in the past and when he was in the clinic last time, he was treated with systemic steroid. Patient does have bronchodilators at home. He denies any hemoptysis. Past Med Surg Social Fam HX - Past Medical History Medical history: COPD, diabetes, hyperlipidemia, hypertension, thyroid disease Psychiatric history: depression - Past Surgical History Additional surgical history: 3 cardiac stents, left shoulder surg, hernia repair - Social History Smoking Status: Former smoker ([id number] history, quit 20 years ago) Smokeless Tobacco Status: No Alcohol use: rarely Drug use: none - Family History Mother Hx Family Cardiac Disorders: Yes (HTN) Medications and Allergies Atorvastatin Calcium [Lipitor] 20 mg PO DAILY 04/27/17 [History] Clopidogrel [Plavix] 75 mg PO DAILY 04/27/17 [History] Levothyroxine [Synthroid] 125 mcg PO DAILY 04/27/17 [History] amLODIPine [Norvasc] 10 mg PO DAILY 04/27/17 [History] Citalopram Hydrobromide [Celexa] 20 mg PO DAILY 04/28/17 [History] Metoprolol [Lopressor] 25 mg PO BID 04/28/17 [History] Metformin HCl [Glucophage Xr] 750 mg PO DAILY 07/02/18 [History] predniSONE [PredniSONE] 10 mg PO DAILY 07/02/18 [History] Revefenacin [Yupelri] 175 mcg IH DAILY 07/03/18 [History] Allergy/AdvReac Type Severity Reaction Status Date / Time No Known Allergies Allergy Verified 07/02/18 15:59 All Systems: The remainder of the systems were reviewed and are negative Physical Examination Vital Signs: Vital Signs, Last 4 Hours Temp Pulse Resp BP Pulse Ox 07/03/18 07:50 97.6 F 81 20 132/104 98 General appearance: no acute distress Eyes: nonicteric ENT: oropharynx moist Neck: supple Effort: normal Inspection: hyperextended Auscultation: bilateral: diminished breath sounds Percussion: bilateral: not dull Cardiovascular: regular rate and rhythm Gastrointestinal: normoactive bowel sounds, non-distended Extremities: no cyanosis normal mental status, non-focal exam mood appropriate Results - Laboratory Findings Abnormal lab findings: Abnormal lab results 0.26 ng/mL (< 0.04) H* 07/02/18 22:11 - Microbiology Findings Microbiology Findings: Microbiology, Last 48 Hours 07/03/18 04:00 Legionella Antigen - Final Urine,Clean Catch Streptococcus pneumoniae Antigen (M - Final - Diagnostic Findings Chest x-ray: report reviewed, image reviewed - Clinical Findings Intake & Output: Intake & Output 07/02/18 07/03/18 07/03/18 23:59 07:59 15:59 Intake Total 250 / 250 0 / 0 Output Total 400 / 400 900 / 900 Balance -150 / -150 -900 / -900 Weight 80.739 kg Consult Discharge Plan - Plan Referrals: Mady Felipe, [employer] SUPERVISOR [Primary Care Provider] -
[2018-07-03 10:21] LABS: Basophils % 0.1 %; Eosinophils % 0.1 %; Hematocrit 46.9 % (37.5-50.1); Hemoglobin 15.5 g/dL (12.9-16.9); Immature Granulocytes % 0.4 % (0-4); Lymphocytes # 0.6 K/mcL (0.6-4.6); Lymphocytes % 7.2 %; Mean Corpuscular Hemoglobin 29.2 pg (28.0-33.3); Mean Corpuscular Volume 88.3 fL (83.0-100.0); Mean Platelet Volume 10.3 fL (9.4-12.4); Monocytes # 0.1 K/mcL (0.0-1.3); Monocytes % 1.1 %; Neutrophils # 7.6 K/mcL (1.6-8.9); Platelet Count 290 K/mcL (140-400); Red Blood Count 5.31 M/mcL (4.19-5.50); Red Cell Distribution Width 17.4 % (11.5-14.5); Segmented Neutrophils % 91.1 %
[2018-07-03 10:37] LABS: BUN/Creatinine Ratio 18 (6-26); Blood Urea Nitrogen 17 mg/dL (8-23); Calcium 9.1 mg/dL (8.6-10.3); Carbon Dioxide 26 mEq/L (23-29); Chloride 103 mEq/L (98-107); Glucose 191 mg/dL (70-105); Osmolality,Calculated 295 (280-300); Sodium 139 mEq/L (136-145); eGFR For Non-African Americans > 60 (> 60)
[2018-07-03 10:49] LABS: Thyroid Stimulating Hormone 1.186 mcIU/mL (0.340-5.600)
--- NOTE | 2018-07-03 11:32 | Internal Med Progress Note ---
Hospitalist Progress Note - Encounter Date of Encounter: 07/03/18 Time of Encounter: 11:29 - Subjective Interval History: Patient is doing better, off BiPAP, on 10 L high flow oxygen. He still has significant pain shortness of breath when talking. He is afebrile, pulse is a normal. His last admission was a year ago for pneumonia. He denies chest pain, is at the bedside all questions are answered. - Exam Vitals: Temp Pulse Resp BP Pulse Ox 97.6 F 81 18 132/104 94 07/03/18 07:50 07/03/18 07:50 07/03/18 10:45 07/03/18 07:50 07/03/18 10:45 Exam: CONSTITUTIONAL: patient appears as an age appropriate male in no acute distress. EYES Clear sclerae, bilateral pupils are equal, reactive to light. EMOI. RESPIRATORY: Mild accessory muscle use, bilateral reduced breath sounds to auscultation, no wheezing, scant crackles/rales. CARDIOVASCULAR: Regular heart rate, normal S1 and S2, no murmurs GASTROINTESTINAL: bowel sounds present, soft, no tenderness. MUSCULOSKELETAL: Joints in normal range of motion, no clubbing, no edema, no cyanosis. Bilateral peripheral pulses 2+. NEUROLOGIC: CN II to XII are grossly intact, no focal neurological deficit. DVT Prophylaxis: Heparin subcutaneous twice a day - Summary of Assessment and Plan Summary of Assessment and Plan: Mr. Mosher is a 73 year old male past medical history severe hypertension, pulmonary fibrosis, emphysema, CAD, hypertension, hypothyroidism, hyperlipidemia and history of AK with 3 stents 20 years ago who presented to [facility] ED complaining of worsening shortness of breath. She is on 4 L of nasal cannula at rest and requires 8 L with activity. He reports for the past few days his shortness of breath has been worsening and today his oxygen actuation was 60% with 4 L of nasal cannula. Patient was admitted for pneumonia and a COPD exacerbation (1) Acute on chronic respiratory failure with hypoxia, required BIPAP, on 15 L NC on admission, now on 10 L NC Current Visit: Yes Status: Acute Assessment and plan: He does have his chronic history of emphysema with severe pulmonary hypertension requires oxygen at home uses 4 L at rest and 8 L with activity. 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 Had a current smoker, quit 20 years ago [id number] history -Continue DuoNeb -Continue IV Solu-Medrol -Pulmonology consulted Qualifiers: Emphysema type: panlobular Qualified Code(s): J43.1 - Panlobular emphysema (3) Elevated brain natriuretic peptide (BNP) level, CT scan showed pulmonary edema, on IV lasix Current Visit: Yes Status: Acute Assessment and plan: BNP at outside facility noted to be 977 20 mg of IV Lasix given Continue monitoring renal function, BMP in the morning (4) Pulmonary hypertension Current Visit: No Status: Chronic Assessment and plan: (5) Elevated troponin, adynamic, likely demanding ischemia , TTE is remarkable with EF 60% Current Visit: Yes Status: Acute Assessment and plan: (6) Pulmonary fibrosis Current Visit: Yes Status: Chronic Assessment and plan: Noted to have history of pulmonary fibrosis upon outpatient chart review No previous bronchoscopy noted, unknown etiology but could be secondary to occupational exposure Pulmonology consulted further recommendations (7) HTN (hypertension) Current Visit: No Status: Chronic Assessment and plan: History of hypertension, continue home amlodipine with when necessary hydralazine Qualifiers: Hypertension type: essential hypertension Qualified Code(s): I10 - Essential (primary) hypertension (8) Hypothyroidism Current Visit: No Status: Chronic Assessment and plan: Noted to have history of hypothyroidism upon medication review unsure if he is currently taking levothyroxine TSH pending Consider adding levothyroxine after medication reconciliation Qualifiers: Hypothyroidism type: unspecified Qualified Code(s): E03.9 - Hypothyroidism, unspecified (9) Hyperlipidemia Current Visit: Yes Status: Chronic Assessment and plan: Continue home atorvastatin Qualifiers: Hyperlipidemia type: unspecified Qualified Code(s): E78.5 - Hyperlipidemia, unspecified (10) Type II diabetes mellitus Current Visit: No Status: Chronic Assessment and plan: Continue diabetic diet Spoke with respiratory to trial nasal cannula during meals Qualifiers: Diabetes mellitus retirement insulin use: without retirement use Diabetes mellitus complication status: without complication Qualified Code(s): E11.9 - Type 2 diabetes mellitus without complications (11) DVT prophylaxis Current Visit: No Status: Acute Assessment and plan: Continue subcutaneous heparin - Time Spent with Patient Total time spent is greater than 50% in coordination of care (as documented) at patient's floor/unit and/or counseling patient: Greater than 35 minutes Plan of Care Discussed with: family Internal Medicine: Result - Labs CBC & Chem 7: 07/03/18 10:03 07/03/18 10:03 Labs: Short CBC 07/03/18 Range/Units 10:03 WBC 8.4 (4.3-11.1) K/mcL Hgb 15.5 (12.9-16.9) g/dL Hct 46.9 (37.5-50.1) % Plt Count 290 (140-400) K/mcL Neutrophils # 7.6 (1.6-8.9) K/mcL BMP 07/03/18 10:03 Sodium 139 Potassium 4.0 Chloride 103 Carbon Dioxide 26 BUN 17 Creatinine 0.95 Glucose 191 H Calcium 9.1 Cardiac Enzymes 07/02/18 Range/Units 22:11 Troponin I 0.26 H* (< 0.04) ng/mL Consult Discharge Plan - Plan Referrals: Mady Felipe CNP [Primary Care Provider] -
[2018-07-03] MEDS: Budesonide/Formoterol 160/4.5 1 PUFF INH IH SCH (21:38)
[2018-07-04] MEDS: Ipratropium/Albuterol Neb 3 ML IH SCH ×4 (03:49→22:43)
[2018-07-04] MEDS: MethylPREDNISolone 40 MG/ML VIAL IVP SCH ×3 (05:14→22:35)
[2018-07-04] MEDS: *HR* Heparin 5,000 UNIT/ML VIAL SQ SCH ×2 (05:14→17:06)
[2018-07-04] MEDS: amLODIPine 5 MG TABLET PO SCH (07:43)
[2018-07-04] MEDS: cefTRIAXone 1,000 MG in Water for inj. (sterile) 20 ML 10 ML IVP SCH (07:43)
[2018-07-04] MEDS: Azithromycin 250 MG TABLET PO SCH (07:43)
[2018-07-04] MEDS: Insulin LISPRO 300 UNITS/3 ML VIAL SQ SCH ×4 (07:53→22:37)
[2018-07-04] MEDS: Levofloxacin 750 MG/150 ML 750 MG/150 ML BAG IVPB SCH (09:24)
[2018-07-04 09:44] LABS: Basophils % 0.1 %; Hematocrit 46.2 % (37.5-50.1); Hemoglobin 15.1 g/dL (12.9-16.9); Lymphocytes # 0.6 K/mcL (0.6-4.6); Lymphocytes % 4.1 %; Mean Corpuscular HGB Conc 32.7 g/dL (31.6-35.5); Mean Corpuscular Hemoglobin 29.2 pg (28.0-33.3); Mean Corpuscular Volume 89.4 fL (83.0-100.0); Mean Platelet Volume 10.7 fL (9.4-12.4); Monocytes # 0.3 K/mcL (0.0-1.3); Monocytes % 1.8 %; Neutrophils # 14.2 K/mcL (1.6-8.9); Nucleated Red Blood Cells 0.1 /100 WBC (0); Platelet Count 285 K/mcL (140-400); Red Blood Count 5.17 M/mcL (4.19-5.50); Red Cell Distribution Width 17.6 % (11.5-14.5)
[2018-07-04 10:01] LABS: BUN/Creatinine Ratio 25 (6-26); Blood Urea Nitrogen 27 mg/dL (8-23); Calcium 9.9 mg/dL (8.6-10.3); Carbon Dioxide 26 mEq/L (23-29); Chloride 100 mEq/L (98-107); Glucose 335 mg/dL (70-105); Magnesium 2.1 mg/dL (1.6-2.6); Osmolality,Calculated 302 (280-300); Potassium 3.9 mEq/L (3.5-5.1); Sodium 137 mEq/L (136-145); eGFR For Non-African Americans > 60 (> 60)
[2018-07-04] MEDS: Budesonide/Formoterol 160/4.5 1 PUFF INH IH SCH ×2 (10:33→22:43)
--- NOTE | 2018-07-04 16:32 | Internal Med Progress Note ---
Hospitalist Progress Note - Encounter Date of Encounter: 07/04/18 Time of Encounter: 16:29 - Subjective Interval History: I have seen and evaluated the patient at bedside. Patient reports he is still feeling short of breath with minimal ambulation and that his O2 sat drops to the 70% when he moves around the bed, he denies chest pain, nausea, vomiting or abdominal pain. also denies light headedness or palpitations. - Exam Vitals: Temp Pulse Resp BP Pulse Ox 98.4 F 98 18 119/84 90 07/04/18 11:28 07/04/18 11:28 07/04/18 16:08 07/04/18 11:28 07/04/18 16:08 Exam: Vitals: Reviewed General: Alert and oriented x4. In mild distress due to shortness of breath Skin: Normal color, no rash, no lesions. HEENT: EOM, pupils equal, round and reactive. Cardiovascular: RRR, normal S1 & S2, no rubs, murmurs or gallops. Lungs:CTA b/l, no wheezes or crackles. Abdomen: Soft, non-tender, no rigidity. Extremities: No deformity, no edema or tenderness, no joint swelling or clubbing. Neurological: Normal cognition and motor skills. Rest of the physical exam is non contributory - Assessment and Plan (1) Acute on chronic respiratory failure with hypoxia Current Visit: Yes Status: Acute Assessment and Plan: patient still requiring high O2 supplementation. on high flow. continue bronchodilators Q6HRs karly. on symbicort decreased methyl-prednisolone to 40mg/IV BID incentive spirometry d/c azithromycin and ceftriaxone. started on levofloxacin urine for atypical and sputum culture and gram stain ordered. pulmonology recommendations appreciated (2) Pneumonia Current Visit: No Status: Acute Assessment and Plan: XR/XR chest 1V portable IMPRESSION: New patchy airspace opacities to the lungs bilaterally concerning for multifocal infiltrates. Clinical correlation and follow-up to resolution recommended. Plan patient on empiric antibiotics (3) HTN (hypertension) Current Visit: No Status: Chronic Assessment and Plan: BP is well controlled on Amlodipine. will resume metoprolol home medication at a lower dose. (4) Hypothyroidism Current Visit: No Status: Chronic Assessment and Plan: on levothyroxine 125 mcg/PO daily (5) Pulmonary hypertension Current Visit: No Status: Chronic (6) Type II diabetes mellitus Current Visit: No Status: Chronic Assessment and Plan: blood sugar is sub-optimally controlled. levemir 10 units BID added, continue lispro low dose sliding scale ac. carbs controlled diet. (7) CAD (coronary artery disease) Current Visit: Yes Status: Chronic Assessment and Plan: Patient is on clopidogrel 75mg/PO HS (8) HLD (hyperlipidemia) Current Visit: Yes Status: Chronic Assessment and Plan: on atorvastatin DVT Prophylaxis: On heparin subq - Summary of Assessment and Plan Summary of Assessment and Plan: patient to remain in the hospital due to hypoxemic resp failure possible due to pneumonia. - Time Spent with Patient Total time spent is greater than 50% in coordination of care (as documented) at patient's floor/unit and/or counseling patient: Greater than 35 minutes (40) Plan of Care Discussed with: patient (his daughter and the nurse.) Internal Medicine: Result - Labs CBC & Chem 7: 07/04/18 09:13 07/04/18 09:13 Labs: Short CBC 07/04/18 Range/Units 09:13 WBC 15.3 H D (4.3-11.1) K/mcL Hgb 15.1 (12.9-16.9) g/dL Hct 46.2 (37.5-50.1) % Plt Count 285 (140-400) K/mcL Neutrophils # 14.2 H (1.6-8.9) K/mcL BMP 07/04/18 09:13 Sodium 137 Potassium 3.9 Chloride 100 Carbon Dioxide 26 BUN 27 H Creatinine 1.10 Glucose 335 H Calcium 9.9 Consult Discharge Plan - Plan Referrals: Mady Felipe, NET TRAINER [Primary Care Provider] - (2) Pneumonia Qualifiers: Pneumonia type: due to unspecified organism Laterality: bilateral Lung location: lower lobe of lung Qualified Code(s): J18.1 - Lobar pneumonia, unspecified organism (3) HTN (hypertension) Qualifiers: Hypertension type: essential hypertension Qualified Code(s): I10 - Essential (primary) hypertension (4) Hypothyroidism Qualifiers: Hypothyroidism type: unspecified Qualified Code(s): E03.9 - Hypothyroidism, unspecified (6) Type II diabetes mellitus Qualifiers: Diabetes mellitus parts counterman insulin use: without parts counterman use Diabetes mellitus complication status: without complication Qualified Code(s): E11.9 - Type 2 diabetes mellitus without complications (7) CAD (coronary artery disease) Qualifiers: Coronary Disease-Associated Artery/Lesion type: unspecified vessel or lesion type [place] vs. transplanted heart: unspecified whether [place] or transplanted heart Associated angina: angina presence unspecified Qualified Code(s): I25.10 - Atherosclerotic heart disease of [place] coronary artery without angina pectoris (8) HLD (hyperlipidemia) Qualifiers: Hyperlipidemia type: unspecified Qualified Code(s): E78.5 - Hyperlipidemia, u nspecified
[2018-07-04] MEDS: Insulin DETEMIR 100 UNIT/ML X5UNITS SQ SCH (22:35)
[2018-07-05] MEDS: Ipratropium/Albuterol Neb 3 ML IH SCH ×4 (04:00→21:39)
[2018-07-05] MEDS: MethylPREDNISolone 40 MG/ML VIAL IVP SCH ×3 (04:44→20:43)
[2018-07-05] MEDS: *HR* Heparin 5,000 UNIT/ML VIAL SQ SCH ×2 (04:45→17:14)
[2018-07-05] MEDS: amLODIPine 5 MG TABLET PO SCH (09:32)
[2018-07-05] MEDS: Levofloxacin 750 MG/150 ML 750 MG/150 ML BAG IVPB SCH (09:33)
[2018-07-05] MEDS: Insulin DETEMIR 100 UNIT/ML X5UNITS SQ SCH ×2 (09:35→20:43)
[2018-07-05] MEDS: Insulin LISPRO 300 UNITS/3 ML VIAL SQ SCH ×4 (09:35→20:43)
[2018-07-05] MEDS: Budesonide/Formoterol 160/4.5 1 PUFF INH IH SCH ×2 (10:46→21:39)
--- NOTE | 2018-07-05 13:34 | Internal Med Progress Note ---
Hospitalist Progress Note - Encounter Date of Encounter: 07/05/18 Time of Encounter: 10:30 - Subjective Interval History: Patient reports mild improvement in his shortness of breath. No chest pain or cough or sputum production. No fever overnight. - Exam Vitals: Temp Pulse Resp BP Pulse Ox 97.8 F 79 18 122/87 92 07/05/18 11:13 07/05/18 11:13 07/05/18 11:13 07/05/18 11:13 07/05/18 11:13 Exam: Vitals: Reviewed General: Alert and oriented x4. In mild distress due to shortness of breath Cardiovascular: RRR, normal S1 & S2, no rubs, murmurs or gallops. Lungs: scattered rales bilaterally Abdomen: Soft, non-tender, no rigidity. Extremities: No deformity or joint swelling Neurological: Normal cognition and motor skills. - Assessment and Plan (1) Acute on chronic respiratory failure with hypoxia Current Visit: Yes Status: Acute Assessment and Plan: Patient apparently has diagnosis of COPD and pulmonary fibrosis, requiring 4 L at rest and 8 L with exertion at home. Chest x-ray compatible with multifocal pneumonia Continues to require 10L at rest currently Continue Levaquin, steroids, and bronchodilators Strep/Legionella antigens negative, sputum culture showing normal respiratory braulio pulm input appreciated Wean O2 as tolerated, is unable to wean off on oxygen, consider increasing steroids for possible IPF flare up (2) Pneumonia Current Visit: Yes Status: Acute Assessment and Plan: As above (3) HTN (hypertension) Current Visit: No Status: Chronic Assessment and Plan: Continue beta rachel (4) Hypothyroidism Current Visit: No Status: Chronic Assessment and Plan: resume home meds (5) Pulmonary hypertension Current Visit: No Status: Chronic Assessment and Plan: Moderate to severe pulmonary hypertension noted, estimated RVSP 54 mmHg Outpatient follow up (6) Type II diabetes mellitus Current Visit: No Status: Chronic Assessment and Plan: Hold off metformin continue basal-bolus insulin (7) CAD (coronary artery disease) Current Visit: Yes Status: Chronic Assessment and Plan: Resume home meds (8) HLD (hyperlipidemia) Current Visit: Yes Status: Chronic Assessment and Plan: Resume statin DVT Prophylaxis: Subcutaneous heparin - Time Spent with Patient Total time spent is greater than 50% in coordination of care (as documented) at patient's floor/unit and/or counseling patient: Greater than 35 minutes Plan of Care Discussed with: patient Internal Medicine: Result - Labs CBC & Chem 7: 07/04/18 09:13 07/04/18 09:13 Consult Discharge Plan - Plan Referrals: Mady Felipe CNP [Primary Care Provider] - (2) Pneumonia Qualifiers: Pneumonia type: due to unspecified organism Laterality: bilateral Lung location: lower lobe of lung Qualified Code(s): J18.1 - Lobar pneumonia, unspecified organism (3) HTN (hypertension) Qualifiers: Hypertension type: essential hypertension Qualified Code(s): I10 - Essential (primary) hypertension (4) Hypothyroidism Qualifiers: Hypothyroidism type: unspecified Qualified Code(s): E03.9 - Hypothyroidism, unspecified (6) Type II diabetes mellitus Qualifiers: Diabetes mellitus salvage determiner insulin use: without salvage determiner use Diabetes mellitus complication status: without complication Qualified Code(s): E11.9 - Type 2 diabetes mellitus without complications (7) CAD (coronary artery disease) Qualifiers: Coronary Disease-Associated Artery/Lesion type: unspecified vessel or lesion type [place] vs. transplanted heart: unspecified whether [place] or transplanted heart Associated angina: angina presence unspecified Qualified Code(s): I25.10 - Atherosclerotic heart disease of [place] coronary artery without angina pectoris (8) HLD (hyperlipidemia) Qualifiers: Hyperlipidemia type: unspecified Qualified Code(s): E78.5 - Hyperlipidemia, unspecified
[2018-07-06] MEDS: Ipratropium/Albuterol Neb 3 ML IH SCH ×4 (04:23→22:22)
[2018-07-06] MEDS: MethylPREDNISolone 40 MG/ML VIAL IVP SCH ×3 (05:27→23:43)
[2018-07-06] MEDS: *HR* Heparin 5,000 UNIT/ML VIAL SQ SCH ×2 (05:27→17:07)
[2018-07-06 07:16] LABS: Basophils % 0.2 %; Hematocrit 46.7 % (37.5-50.1); Hemoglobin 15.1 g/dL (12.9-16.9); Immature Granulocytes % 0.7 % (0-4); Lymphocytes # 0.6 K/mcL (0.6-4.6); Mean Corpuscular HGB Conc 32.3 g/dL (31.6-35.5); Mean Corpuscular Hemoglobin 28.9 pg (28.0-33.3); Mean Corpuscular Volume 89.3 fL (83.0-100.0); Mean Platelet Volume 10.8 fL (9.4-12.4); Monocytes # 0.4 K/mcL (0.0-1.3); Monocytes % 3.1 %; Neutrophils # 11.2 K/mcL (1.6-8.9); Platelet Count 262 K/mcL (140-400); Red Blood Count 5.23 M/mcL (4.19-5.50); Red Cell Distribution Width 17.7 % (11.5-14.5)
[2018-07-06 07:40] LABS: BUN/Creatinine Ratio 27 (6-26); Blood Urea Nitrogen 20 mg/dL (8-23); Calcium 9.1 mg/dL (8.6-10.3); Carbon Dioxide 31 mEq/L (23-29); Chloride 99 mEq/L (98-107); Glucose 195 mg/dL (70-105); Osmolality,Calculated 294 (280-300); Potassium 4.3 mEq/L (3.5-5.1); Sodium 138 mEq/L (136-145); eGFR For Non-African Americans > 60 (> 60)
[2018-07-06] MEDS: amLODIPine 5 MG TABLET PO SCH (07:52)
[2018-07-06] MEDS: Levofloxacin 750 MG/150 ML 750 MG/150 ML BAG IVPB SCH (07:53)
[2018-07-06] MEDS: Insulin LISPRO 300 UNITS/3 ML VIAL SQ SCH ×4 (08:06→21:03)
[2018-07-06] MEDS: Insulin DETEMIR 100 UNIT/ML X5UNITS SQ SCH ×2 (08:42→21:02)
[2018-07-06] MEDS: Budesonide/Formoterol 160/4.5 1 PUFF INH IH SCH ×2 (10:34→22:22)
[2018-07-06] MEDS ORDERED: Isovue-370 500 ML BOTTLE IVP ONE (11:03)
[2018-07-06 11:24] LABS: INR 1.1; Prothrombin Time 12.4 Seconds (9.4-12.1)
--- NOTE | 2018-07-06 12:34 | Internal Med Progress Note ---
Hospitalist Progress Note - Encounter Date of Encounter: 07/06/18 Time of Encounter: 10:15 - Subjective Interval History: Patient was evaluated twice this morning. On the initial encounter, patient was doing great with O2 requirement coming down to 5-6L. However, he developed sudden onset of pleuritic chest pain associated with drop in O2 sat to ~ 70% requiring HFNC. When I attended to the patient, he states that CP already resolved. No worsening cough or sputum production. Denies any hemoptysis. - Exam Vitals: Temp Pulse Resp BP Pulse Ox 98.0 F 86 18 125/90 90 07/06/18 12:14 07/06/18 12:14 07/06/18 12:14 07/06/18 12:14 07/06/18 12:14 Exam: Vitals: Reviewed General: Alert and oriented x4. In mild distress due to shortness of breath Cardiovascular: RRR, normal S1 & S2, no rubs, murmurs or gallops. Lungs: scattered rales bilaterally but mostly clear Abdomen: Soft, non-tender, no rigidity. Extremities: No deformity or joint swelling Neurological: Normal cognition and motor skills. - Assessment and Plan (1) Acute on chronic respiratory failure with hypoxia Current Visit: Yes Status: Acute Assessment and Plan: Patient apparently has diagnosis of COPD and pulmonary fibrosis, requiring 4 L at rest and 8 L with exertion at home. Chest x-ray compatible with multifocal pneumonia seemed to be improving on Levaquin, steroids, and bronchodilators but had an episode of pleuritic chest pain with worsening hypoxia will check CTA to rule out PE trend troponin (initially admitted for trop 0.37 - 0.26 which was attributed to demand ischemia) Strep/Legionella antigens negative, sputum culture showing normal respiratory braulio will contact pulm for re-evaluation (2) Pneumonia Current Visit: Yes Status: Acute Assessment and Plan: As above (3) HTN (hypertension) Current Visit: No Status: Chronic Assessment and Plan: Continue norvasc and beta rachel (4) Hypothyroidism Current Visit: No Status: Chronic Assessment and Plan: resume home meds (5) Pulmonary hypertension Current Visit: No Status: Chronic Assessment and Plan: Moderate to severe pulmonary hypertension noted, estimated RVSP 54 mmHg Outpatient follow up (6) Type II diabetes mellitus Current Visit: No Status: Chronic Assessment and Plan: Hold off metformin continue basal-bolus insulin, will increase Levemir to 14 units twice a day (7) CAD (coronary artery disease) Current Visit: Yes Status: Chronic Assessment and Plan: Resume home meds (8) HLD (hyperlipidemia) Current Visit: Yes Status: Chronic Assessment and Plan: Resume statin DVT Prophylaxis: Subcutaneous heparin - Time Spent with Patient Total time spent is greater than 50% in coordination of care (as documented) at patient's floor/unit and/or counseling patient: Greater than 35 minutes Plan of Care Discussed with: patient (Discussed with patient's at bedside) Internal Medicine: Result - Labs CBC & Chem 7: 07/06/18 06:24 07/06/18 06:24 Labs: Short CBC 07/06/18 Range/Units 06:24 WBC 12.3 H (4.3-11.1) K/mcL Hgb 15.1 (12.9-16.9) g/dL Hct 46.7 (37.5-50.1) % Plt Count 262 (140-400) K/mcL Neutrophils # 11.2 H (1.6-8.9) K/mcL BMP 07/06/18 06:24 Sodium 138 Potassium 4.3 Chloride 99 Carbon Dioxide 31 H BUN 20 Creatinine 0.73 Glucose 195 H Calcium 9.1 Cardiac Enzymes 07/06/18 Range/Units 11:06 Troponin I 0.07 H* (< 0.04) ng/mL - ABG Interpretation ABG results: PT/INR, D-dimer PT 12.4 Seconds (9.4-12.1) H 07/06/18 11:06 - Impressions Impressions Chest CTA 07/06/18 11:03 IMPRESSION: No evidence of pulmonary embolism. Severe centrilobular and paraseptal emphysema throughout both lungs with hazy stable ground-glass opacity in both lungs suggesting chronic interstitial lung disease. No significant change compared to prior examination. Stable borderline enlarged mediastinal and hilar lymphadenopathy stable since prior examination likely representing chronic reactive lymphadenopathy secondary to the chronic interstitial lung disease. D/ / Doc Foy MD / Doc Foy MD Interpreting Provider: Doc Foy MD Consult Discharge Plan - Plan Referrals: Mady Felipe, [employer] BINDER COVERER [Primary Care Provider] - 05/21/19 1:40 pm (2) Pneumonia Qualifiers: Pneumonia type: due to unspecified organism Laterality: bilateral Lung location: lower lobe of lung Qualified Code(s): J18.1 - Lobar pneumonia, unspecified organism (3) HTN (hypertension) Qualifiers: Hypertension type: essential hypertension Qualified Code(s): I10 - Essential (primary) hypertension (4) Hypothyroidism Qualifiers: Hypothyroidism type: unspecified Qualified Code(s): E03.9 - Hypothyroidism, unspecified (6) Type II diabetes mellitus Qualifiers: Diabetes mellitus long term care social worker insulin use: without long term care social worker use Diabetes me llitus complication status: without complication Qualified Code(s): E11.9 - Type 2 diabetes mellitus without complications (7) CAD (coronary artery disease) Qualifiers: Coronary Disease-Associated Artery/Lesion type: unspecified vessel or lesion type [place] vs. transplanted heart: unspecified whether [place] or transplanted heart Associated angina: angina presence unspecified Qualified Code(s): I25.10 - Atherosclerotic heart disease of [place] coronary artery without angina pectoris (8) HLD (hyperlipidemia) Qualifiers: Hyperlipidemia type: unspecified Qualified Code(s): E78.5 - Hyperlipidemia, unspecified
--- NOTE | 2018-07-06 15:35 | Electrocardiograph Report ---
[address] [address] Test Date: 2018-07-02 Pat Name: Edinson Mosher Department: 110 Room: 2N08 Gender: Hospital Social Worker: : 1945 Requested By: Diane Huddleston Order Number: [id number] Reading MD: Narayan Adam Measurements Intervals [place] Rate: 78 P: 62 TN: 153 QRS: -69 QRSD: 109 T: 62 QT: 405 QTc: 439 Interpretive Statements SINUS RHYTHM LEFT ATRIAL ENLARGEMENT INCOMPLETE RIGHT BUNDLE BRANCH BLOCK LEFT ANTERIOR FASCICULAR BLOCK INFERIOR MYOCARDIAL INFARCTION, PROBABLY OLD Electronically Signed On 07-06-2018 15:34:00 EDT by Narayan Adam
--- NOTE | 2018-07-06 17:35 | Electrocardiograph Report ---
[address] [address] Test Date: 2018-07-06 Pat Name: Edinson Mosher Department: 110 Room: 2N08 Gender: M [place] Expert: Daisy : 1945 Requested By: Corky Sales Order Number: [id number] Reading MD: Alivia Abbott Measurements Intervals [place] Rate: 88 P: 57 CO: 147 QRS: -64 QRSD: 109 T: 9 QT: 391 QTc: 437 Interpretive Statements SINUS RHYTHM WITH OCCASIONAL VENTRICULAR PREMATURE COMPLEXES LEFT ATRIAL ENLARGEMENT [-0.15mV P WAVE IN V1/V2] LEFT AXIS DEVIATION [QRS AXIS < -30] INCOMPLETE RIGHT BUNDLE BRANCH BLOCK [90+ ms QRS DURATION, TERMINAL R IN V1/V2, 40+ ms S IN I/aVL/V4/V5/V6] Electronically Signed On 07-06-2018 17:34:09 EDT by Alivia Abbott
[2018-07-06] MEDS ORDERED: MethylPREDNISolone 40 MG/ML VIAL IVP SCH (18:00)
--- NOTE | 2018-07-06 20:03 | Pulmonology Progress Note ---
Date of Encounter: 07/06/18 Time of Encounter: 13:00 Assessment and Plan (1) Acute on chronic respiratory failure with hypoxia Current Visit: Yes Status: Acute Patient presently with acute exacerbation of COPD with emphysema patient has severe bullous emphysema with chronic interstitial changes complicated by pneumonia initially patient is a CTA did not show any evidence of pulmonary embolism agree with the high-dose steroid therapy will need slow taper over a month. Patient is not on a lung transplant candidate patient has poor prognosis. Counseled about goals of care patient wished to be full code at this point (2) Acute exacerbation of chronic obstructive airways disease Current Visit: No Status: Acute To continue with bronchodilators and steroids will need slow taper and chronic prednisone therapy (3) Bullous emphysema Current Visit: No Status: Acute No evidence of pneumothorax (4) Diastolic heart failure Current Visit: No Status: Acute To continue diuresis as tolerated Qualifiers: Heart failure chronicity: acute on chronic Qualified Code(s): I50.33 - Acute on chronic diastolic (congestive) heart failure Subjective Principal diagnosis: COPD with emphysema exacerbation Interval history: 73-year-old male is known well to me by outpatient with severe emphysema with COPD and some chronic interstitial changes patient is not a candidate for lung transplant patient has worsening excess tolerance with acute on chronic hypoxic respiratory failure patient comes with worsening shortness of breath cough and sputum production patient is doing well with a round of antibiotics patient has sudden onset chest pain with CTA shows negative for pulmonary embolism. Patient is slowly getting back to his baseline and much cough or sputum production denies any chest pain or tightness. Objective PUL Vital signs: Last Vital Signs Temp 98.0 F 07/06/18 19:39 Pulse 88 07/06/18 19:39 Resp 16 07/06/18 19:39 BP 132/91 07/06/18 19:39 Pulse Ox 86 07/06/18 19:39 Effort: mildly labored Auscultation: bilateral: diminished breath sounds Cardiovascular: regular rate and rhythm Gastrointestinal: normoactive bowel sounds Extremities: no cyanosis, no edema normal mental status, non-focal exam mood appropriate, affect normal Results - Laboratory Findings CBC and BMP: 07/06/18 06:24 07/06/18 06:24 PT/INR, D-dimer PT 12.4 Seconds (9.4-12.1) H 07/06/18 11:06 Abnormal lab findings: Abnormal lab results WBC 12.3 K/mcL (4.3-11.1) H 07/06/18 06:24 RDW 17.7 % (11.5-14.5) H 07/06/18 06:24 11.2 K/mcL (1.6-8.9) H 07/06/18 06:24 Nucleated RBCs/100 WBC 0.1 /100 WBC (0) H 07/04/18 09:13 PT 12.4 Seconds (9.4-12.1) H 07/06/18 11:06 Carbon Dioxide 31 mEq/L (23-29) H 07/06/18 06:24 BUN 27 mg/dL (8-23) H 07/04/18 09:13 27 (6-26) H 07/06/18 06:24 Glucose 195 mg/dL (70-105) H 07/06/18 06:24 POC Glucose 199 mg/dL (70-99) H 07/06/18 08:02 302 (280-300) H 07/04/18 09:13 0.07 ng/mL (< 0.04) H* 07/06/18 17:14 - Microbiology Findings Microbiology Findings: Microbiology, Last 48 Hours 07/03/18 07:30 Sputum Culture - Final Sputum - Clinical Findings Intake & Output: Intake & Output 07/06/18 07/06/18 07/06/18 07:59 15:59 23:59 Intake Total 720 / 840 120 / 840 Output Total 450 / 450 Balance -450 / 390 720 / 390 120 / 390 Weight 81.9 kg Consult Discharge Plan - Plan Referrals: Mady Felipe, SLAG WORKER [Primary Care Provider] - 07/13/18 1:40 pm
[2018-07-07] MEDS: Ipratropium/Albuterol Neb 3 ML IH SCH ×3 (04:23→15:35)
[2018-07-07] MEDS: *HR* Heparin 5,000 UNIT/ML VIAL SQ SCH (05:45)
[2018-07-07] MEDS: MethylPREDNISolone 40 MG/ML VIAL IVP SCH (07:46)
[2018-07-07] MEDS: amLODIPine 5 MG TABLET PO SCH (07:47)
[2018-07-07] MEDS: Levofloxacin 750 MG/150 ML 750 MG/150 ML BAG IVPB SCH (07:47)
[2018-07-07] MEDS: Insulin LISPRO 300 UNITS/3 ML VIAL SQ SCH ×2 (07:48→13:06)
[2018-07-07] MEDS: Insulin DETEMIR 100 UNIT/ML X5UNITS SQ SCH (08:08)
[2018-07-07] MEDS: Budesonide/Formoterol 160/4.5 1 PUFF INH IH SCH (10:26)
--- NOTE | 2018-07-07 11:53 | Pulmonology Progress Note ---
Date of Encounter: 07/07/18 Time of Encounter: 11:00 Assessment and Plan (1) Acute on chronic respiratory failure with hypoxia Status: Acute Patient presently with acute exacerbation of COPD with emphysema patient has severe bullous emphysema with chronic interstitial changes complicated by pneumonia initially patient is a CTA did not show any evidence of pulmonary embolism agree with the high-dose steroid therapy will need slow taper over a month. Patient is not on a lung transplant candidate patient has poor prognosis. Counseled about goals of care patient wished to be full code at this point 07/07 Patient COPD symptoms are getting better his oxygen requirements back to baseline. His exercise tolerance when walking if decent patient can be discharged home. (2) Acute exacerbation of chronic obstructive airways disease Status: Acute To continue with bronchodilators and steroids will need slow taper and chronic prednisone therapy 07/07 patient symptoms are at baseline to continue oxygen supplementation patient will need at least 4 weeks of chronic prednisone therapy and I will see him in the clinic. (3) Bullous emphysema Status: Acute No evidence of pneumothorax (4) Diastolic heart failure Status: Acute To continue diuresis as tolerated Qualifiers: Heart failure chronicity: acute on chronic Qualified Code(s): I50.33 - Acute on chronic diastolic (congestive) heart failure Subjective Principal diagnosis: COPD with emphysema exacerbation Interval history: 73-year-old male is known well to me by outpatient with severe emphysema with COPD and some chronic interstitial changes patient is not a candidate for lung transplant patient has worsening excess tolerance with acute on chronic hypoxic respiratory failure patient comes with worsening shortness of breath cough and sputum production patient is doing well with a round of antibiotics patient has sudden onset chest pain with CTA shows negative for pulmonary embolism. Patient is slowly getting back to his baseline and much cough or sputum production denies any chest pain or tightness. 07/07 patient is doing a lot better almost back to his baseline his oxygen requirements back to baseline patient wants to go home. Objective PUL Vital signs: Last Vital Signs Temp 98.1 F 07/07/18 07:45 Pulse 79 07/07/18 07:45 Resp 16 07/07/18 10:31 BP 145/109 07/07/18 07:45 Pulse Ox 95 07/07/18 10:31 General appearance: no acute distress Effort: mildly labored Auscultation: bilateral: diminished breath sounds Cardiovascular: regular rate and rhythm Gastrointestinal: normoactive bowel sounds Musculoskeletal: no deformities normal mental status, pupils equal and round mood appropriate, affect normal Results - Laboratory Findings CBC and BMP: 07/06/18 06:24 07/06/18 06:24 PT/INR, D-dimer PT 12.4 Seconds (9.4-12.1) H 07/06/18 11:06 Abnormal lab findings: Abnormal lab results WBC 12.3 K/mcL (4.3-11.1) H 07/06/18 06:24 RDW 17.7 % (11.5-14.5) H 07/06/18 06:24 11.2 K/mcL (1.6-8.9) H 07/06/18 06:24 Nucleated RBCs/100 WBC 0.1 /100 WBC (0) H 07/04/18 09:13 PT 12.4 Seconds (9.4-12.1) H 07/06/18 11:06 Carbon Dioxide 31 mEq/L (23-29) H 07/06/18 06:24 BUN 27 mg/dL (8-23) H 07/04/18 09:13 27 (6-26) H 07/06/18 06:24 Glucose 195 mg/dL (70-105) H 07/06/18 06:24 POC Glucose 199 mg/dL (70-99) H 07/06/18 20:30 302 (280-300) H 07/04/18 09:13 0.07 ng/mL (< 0.04) H* 07/06/18 17:14 - Microbiology Findings Microbiology Findings: Microbiology, Last 48 Hours 07/03/18 07:30 Sputum Culture - Final Sputum - Clinical Findings Intake & Output: Intake & Output 07/06/18 07/07/18 07/07/18 23:59 07:59 15:59 Intake Total 120 / 990 0 / 240 240 / 240 Output Total 300 / 750 1125 / 1125 Balance -180 / 240 -1125 / -885 240 / -885 Weight 82.3 kg Consult Discharge Plan - Plan Instructions: Albuterol (By breathing), Levofloxacin (By mouth), Budesonide/Formoterol (By breathing), Acute Respiratory Distress Syndrome (DC), Pneumonia (DC) Referrals: Mady Felipe CNP [Primary Care Provider] - 07/13/18 1:40 pm Tiffany Castro MD [Partnered Physician] - 07/20/18 1:30 pm Prescriptions: Albuterol Sulfate [Albuterol Inhaler] 2 puff IH Q6HR 30 Days #2 hfa.aer.ad levoFLOXacin [Levofloxacin] 750 mg PO DAILY 7 Days #7 tab Budesonide/Formoterol 160/4.5 [Symbicort 160/4.5] 2 puff IH BIDR 30 Days #2 inh
[2018-07-07 12:01] VITALS: BP 134/86
--- NOTE | 2018-07-07 13:57 | Discharge Summary ---
Date of Encounter: 07/07/18 Time of Encounter: 13:53 - Discharge Diagnosis (1) HTN (hypertension) Priority: Secondary Status: Chronic Qualifiers: Hypertension type: essential hypertension Qualified Code(s): I10 - Essential (primary) hypertension (2) Hypothyroidism Priority: Secondary Status: Chronic Qualifiers: Hypothyroidism type: unspecified Qualified Code(s): E03.9 - Hypothyroidism, unspecified (3) Pulmonary hypertension Priority: Secondary Status: Chronic (4) Pneumonia Priority: Primary Status: Acute Qualifiers: Pneumonia type: due to unspecified organism Laterality: bilateral Lung location: lower lobe of lung Qualified Code(s): J18.1 - Lobar pneumonia, unspecified organism (5) Type II diabetes mellitus Priority: Secondary Status: Chronic Qualifiers: Diabetes mellitus penitentiary insulin use: without computer terminal operator use Diabetes mellitus complication status: without complication Qualified Code(s): E11.9 - Type 2 diabetes mellitus without complications (6) Acute on chronic respiratory failure with hypoxia Priority: Primary Status: Acute (7) CAD (coronary artery disease) Priority: Secondary Status: Chronic Qualifiers: Coronary Disease-Associated Artery/Lesion type: unspecified vessel or lesion type [place] vs. transplanted heart: unspecified whether [place] or transplanted heart Associated angina: angina presence unspecified Qualified Code(s): I25.10 - Atherosclerotic heart disease of [place] coronary artery without angina pectoris (8) HLD (hyperlipidemia) Priority: Secondary Status: Chronic Qualifiers: Hyperlipidemia type: unspecified Qualified Code(s): E78.5 - Hyperlipidemia, unspecified (9) Pulmonary fibrosis Priority: Secondary Status: Chronic Hospital course: Mr. Mosher is a 73 year old male past medical history severe hypertension, pulmonary fibrosis, emphysema, CAD, hypertension, hypothyroidism, hyperlipidemia and history of CO with 3 stents 20 years ago who presented to [place] ED complaining of worsening shortness of breath. Patient was admitted to the hospital due to pneumonia, hypoxemic respiratory failure, and elevated trops. Patient was managed with broad spectrum IV antibiotics. Pulm consulted recommended a prolong course of high dose steroids tapers. During this admission patient has an episode of acute pleuritic chest pain associated with hypoxemia. a CTA of the chest was done to r/o PE. No evidence of pulmonary embolism. Severe centrilobular and paraseptal emphysema throughout both lungs with hazy stable ground-glass opacity in both lungs suggesting chronic interstitial lung disease. No significant change compared to prior examination. Stable borderline enlarged mediastinal and hilar lymphadenopathy stable since prior examination likely representing chronic reactive lymphadenopathy secondary to the chronic interstitial lung disease. Patient acute's symptoms on presentation have resolved and he is hemodynamically stable to be discharged home. Patient is closed to his home O2 requirement. - Time Spent with Patient Total time spent providing and/or coordinating discharge services: Time spent: Greater than 30 minutes (35) - Discharge Medications Prescriptions: New Albuterol Sulfate [Albuterol Inhaler] 2 puff IH Q6HR 30 Days #2 hfa.aer.ad Budesonide/Formoterol 160/4.5 [Symbicort 160/4.5] 2 puff IH BIDR 30 Days #2 inh levoFLOXacin [Levofloxacin] 750 mg PO DAILY 7 Days #7 tab Continued Metoprolol [Lopressor] 25 mg PO BID Citalopram Hydrobromide [Celexa] 20 mg PO DAILY Revefenacin [Yupelri] 175 mcg IH DAILY amLODIPine [Norvasc] 10 mg PO DAILY Atorvastatin Calcium [Lipitor] 20 mg PO DAILY Clopidogrel [Plavix] 75 mg PO DAILY Levothyroxine [Synthroid] 125 mcg PO DAILY Metformin HCl [Glucophage Xr] 750 mg PO DAILY Discontinued predniSONE [PredniSONE] 10 mg PO DAILY Home Medications: Atorvastatin Calcium [Lipitor] 20 mg PO DAILY 04/27/17 [History] Clopidogrel [Plavix] 75 mg PO DAILY 04/27/17 [History] Levothyroxine [Synthroid] 125 mcg PO DAILY 04/27/17 [History] amLODIPine [Norvasc] 10 mg PO DAILY 04/27/17 [History] Citalopram Hydrobromide [Celexa] 20 mg PO DAILY 04/28/17 [History] Metoprolol [Lopressor] 25 mg PO BID 04/28/17 [History] Metformin HCl [Glucophage Xr] 750 mg PO DAILY 07/02/18 [History] Revefenacin [Yupelri] 175 mcg IH DAILY 07/03/18 [History] Albuterol Sulfate [Albuterol Inhaler] 2 puff IH Q6HR 30 Days #2 hfa.aer.ad 07/07/18 [Rx] Budesonide/Formoterol 160/4.5 [Symbicort 160/4.5] 2 puff IH BIDR 30 Days #2 inh 07/07/18 [Rx] levoFLOXacin [Levofloxacin] 750 mg PO DAILY 7 Days #7 tab 07/07/18 [Rx] Allergies/Adverse Reactions: Allergy/AdvReac Type Severity Reaction Status Date / Time No Known Allergies Allergy Verified 07/02/18 15:59 Date of admission: 07/02/18 20:03 Primary care physician: Mady Felipe CNP Consults: 07/02/18 23:10 Consult to Pulmonology [CONS] Routine Consulting Provider: [facility] Reason for Consult: Severe pulmonary hyertention, CT from two months ago shows severe panacinar emphysema with bullae. Presenting with worsening SOB Call Completed: No 07/05/18 09:30 Consult to Nurse Navigator [CONS] Routine Comment: pneumonia 07/06/18 13:05 Consult to Pulmonology [CONS] Routine Consulting Provider: [facility] [place] Reason for Consult: Acute on chronic hypoxic respiratory failure, hx of COPD +/- pulmonary fibrosis Call Completed: Yes - Constitutional Vitals: Temp Pulse Resp BP Pulse Ox 98.0 F 87 18 134/86 90 07/07/18 11:58 07/07/18 11:58 07/07/18 11:58 07/07/18 11:58 07/07/18 11:58 Exam: Vitals: Reviewed General: Alert and oriented x4. In no distress Cardiovascular: RRR, normal S1 & S2, no rubs, murmurs or gallops. Lungs:CTA b/l, no wheezes or crackles. Abdomen: Soft, non-tender, no rigidity. Extremities: No edema Neurological: Normal cognition and motor skills. Rest of the physical exam is non contributory - Patient Status Disposition: Home, Self-Care Condition: Fair Functional capacity at discharge: independent ambulation Overall status at discharge: patient is progressing back to baseline - Discharge Instructions Follow Up With: Mady Felipe CNP [Primary Care Provider] - 07/13/18 1:40 pm - Diet and Activity Activity: wear oxygen at all times Diet: diabetic diet
== END 2018-07-07 15:42 | disposition home or self-care (01) | DRG 193 ==
LOC: 2NNU 20:03 → SUATTDRO 20:03
PROVIDERS: ADMIT Student in an Organized Health Care Education/Training Program; ATTEND Internal Medicine

== ENCOUNTER 2018-09-24 17:37 | Inpatient (IN) ==
[2018-09-25] MEDS ORDERED: Acetaminophen 325 MG TABLET PO PRN (00:34)
[2018-09-25] MEDS ORDERED: Furosemide 40 MG/4 ML VIAL IVP ONE (00:34)
[2018-09-25] MEDS ORDERED: Dextrose Gel 15 GM/37.5 ML TUBE PO PRN ×2 (00:37)
[2018-09-25] MEDS ORDERED: *HR* Dextrose 50 % in Water (Syg) 50 ML SYRINGE IVP PRN (00:37)
[2018-09-25] MEDS ORDERED: Ipratropium/Albuterol Neb 3 ML ONE (00:43)
[2018-09-25] MEDS: Ipratropium/Albuterol Neb 3 ML IH SCH ×3 (00:49→07:59)
[2018-09-25 01:22] LABS: Basophils % 0.1 %; Hematocrit 42.2 % (37.5-50.1); Hemoglobin 13.7 g/dL (12.9-16.9); Immature Granulocytes % 0.6 % (0-4); Lymphocytes # 0.5 K/mcL (0.6-4.6); Lymphocytes % 5.6 %; Mean Corpuscular HGB Conc 32.5 g/dL (31.6-35.5); Mean Corpuscular Hemoglobin 29.7 pg (28.0-33.3); Mean Corpuscular Volume 91.3 fL (83.0-100.0); Mean Platelet Volume 10.8 fL (9.4-12.4); Monocytes # 0.1 K/mcL (0.0-1.3); Monocytes % 1.1 %; Neutrophils # 8.1 K/mcL (1.6-8.9); Platelet Count 224 K/mcL (140-400); Red Blood Count 4.62 M/mcL (4.19-5.50); Red Cell Distribution Width 15.6 % (11.5-14.5); Segmented Neutrophils % 92.6 %; White Blood Count 8.7 K/mcL (4.3-11.1)
[2018-09-25 01:37] LABS: Heparin anti-factor XA UFH 0.1 IU/mL (0.30-0.70); INR 1.4; Prothrombin Time 16.1 Seconds (9.4-12.1)
[2018-09-25 01:39] LABS: Activated Partial Thrombo Time 33.1 Seconds (26.0-36.0)
[2018-09-25 01:53] LABS: Alanine Aminotransferase 26 Units/L (7-52); Albumin 3.7 g/dL (3.5-5.7); Albumin/Globulin Ratio 1.5 (1.1-2.2); Alkaline Phosphatase 67 Units/L (34-104); Aspartate Amino Transferase 20 Units/L (13-39); BUN/Creatinine Ratio 19 (6-26); Bilirubin,Direct 0.5 mg/dL (0.0-0.2); Bilirubin,Indirect 1.1 mg/dL (0.0-1.2); Bilirubin,Total 1.6 mg/dL (0.3-1.0); Blood Urea Nitrogen 21 mg/dL (8-23); Calcium 9.1 mg/dL (8.6-10.3); Carbon Dioxide 23 mEq/L (23-29); Chloride 102 mEq/L (98-107); Globulin 2.5 g/dL (2.4-3.5); Glucose 210 mg/dL (70-105); Magnesium 1.9 mg/dL (1.6-2.6); Osmolality,Calculated 301 (280-300); Potassium 3.6 mEq/L (3.5-5.1); Sodium 141 mEq/L (136-145); Total Protein 6.2 g/dL (6.4-8.9); Troponin I 0.05 ng/mL (< 0.04); eGFR For African Americans > 60 (> 60); eGFR For Non-African Americans > 60 (> 60)
--- NOTE | 2018-09-25 01:56 | Internal Med History&Physical ---
Date of Encounter: 09/25/18 Time of Encounter: 01:56 Internal Medicine - H&P: HPI Chief complaint: sob Admitted From: Hospital to Hospital Transfer Plans for Post Hospital Care: Home History of present illness: Edinson Mosher is a 73-year-old man with hypertension, diabetes, hyperlipidemia, coronary artery disease and severe pulmonary emphysema/COPD with chronic hypoxic respiratory failure on 4L home O2 who presents here on transfer from [facility] where he went with complaints of increasing shortness of breath. He tells me that he becomes short of breath with minimal exertion which is now limited his functional capacity. He denies associated fever, chills and pleuritic chest pain and says he has a mild cough with scant expectorate. He was notably hypoxic on arrival and in respiratory distress and he was placed on BiPAP and x-ray showed concerns of congestive heart failure. He had a troponin elevation of 0.2 and lactate of 5.2. He was started on heparin drip prior to his transfer here. On arrival he remains notably dyspneic but he is able to complete sentences. He says he feels a little bit better than the time of initial presentation. Vitals: Reviewed General: Obese white man lying in bed in mild respiratory distress. Skin: Warm and dry. HEENT: Moist mucous membranes. No conjunctivae pallor. Neck: No lymphadenopathy. No JVD. No carotid bruits. No palpable thyroid. Chest: Diminished thoracic expansion. Reduced breath sounds globally but more predominant on the left hemithorax. Heart: Tachycardic; rhythmic. Abdomen: Non-distended, soft and non-tender to palpation. No peritoneal reaction. Extremities: No clubbing, cyanosis or edema. No calf tenderness. Normal distal pulses. Neurological: Awake, alert and oriented to person, place and time. No focal deficits. Psych: Affect appropriate. Assessment/Plan 1. Acute on chronic hypoxic respiratory failure: I sent his x-ray for upload and on my review he has extensive pulmonary vascular congestion and fluid buildup in both lung mcguire that concerns me for pulmonary edema from acute systolic heart failure. He offers no clinical signs/symptoms that would suggest pneumonia however this may also need to be taken under consideration and perhaps a chest CT should be done once he is more stable. I will administer a dose of 80mg furosemide tonight to reduce his preload in combination with nebulizer therapy while on NIPPV as there is likely a component of COPD as well. Will assess his response to these measures through the course of the night and re- evaluation performed in the morning. In the interim, get comprehensive labs, blood cultures, urine antigen serologies. Will consider empiric antibiotic as well if signs were to manifest as such. 2. Troponin elevation: Seemingly chronic and likely related to heart failure. Will discontinue heparin drip. 3. Coronary artery disease: S/p 3 stents. Continue statin and antiplatelet therapy. 4. Diabetes: Will place on insulin sliding scale for now. 5. Hypertension: On amlodipine. Past Med Surg Social Fam HX - Past Medical History Medical history: COPD, hyperlipidemia, hypertension, thyroid disease Psychiatric history: depression - Past Surgical History Additional surgical history: 3 cardiac stents, left shoulder surg, hernia repair - Social History Smoking Status: Former smoker Smokeless Tobacco Status: No Alcohol use: none Drug use: none - Family History Mother Hx Family Cardiac Disorders: Yes (HTN) Internal Medicine - H&P: Meds Atorvastatin Calcium [Lipitor] 20 mg PO DAILY 04/27/17 [History] Clopidogrel [Plavix] 75 mg PO DAILY 04/27/17 [History] Levothyroxine [Synthroid] 125 mcg PO DAILY 04/27/17 [History] amLODIPine [Norvasc] 10 mg PO DAILY 04/27/17 [History] Citalopram Hydrobromide [Celexa] 20 mg PO DAILY 04/28/17 [History] Metoprolol [Lopressor] 25 mg PO BID 04/28/17 [History] Metformin HCl [Glucophage Xr] 750 mg PO DAILY 07/02/18 [History] Albuterol Sulfate [Proair Respiclick] 2 aerosol IH Q4HR PRN 09/25/18 [History] Benzonatate 100 mg PO TID 09/25/18 [History] Budesonide/Formoterol 160/4.5 [Symbicort 160/4.5] 2 aerosol IH BID 09/25/18 [History] Ipratropium/Albuterol Neb [Duoneb] 2 puff IH Q4HR 09/25/18 [History] Levothyroxine 125 mcg PO DAILY 09/25/18 [History] PredniSONE 10 mg PO DAILY 09/25/18 [History] Allergy/AdvReac Type Severity Reaction Status Date / Time No Known Allergies Allergy Verified 07/02/18 15:59 All Systems PM: A 10-system review of systems was performed and is negative for pertinent findings except as documented above in the HPI. - Constitutional Vitals: Temp Pulse Resp BP Pulse Ox 97.9 F 102 27 142/78 98 09/25/18 00:08 09/25/18 00:08 09/25/18 00:49 09/25/18 00:08 09/25/18 00:49 Exam: . Internal Med - H&P Results - Labs CBC & Chem 7: 09/25/18 01:12 09/25/18 01:12 Labs: Short CBC 09/25/18 Range/Units 01:12 WBC 8.7 (4.3-11.1) K/mcL Hgb 13.7 (12.9-16.9) g/dL Hct 42.2 (37.5-50.1) % Plt Count 224 (140-400) K/mcL Neutrophils # 8.1 (1.6-8.9) K/mcL BMP 09/25/18 01:12 Sodium 141 Potassium 3.6 Chloride 102 Carbon Dioxide 23 BUN 21 Creatinine 1.11 Glucose 210 H Calcium 9.1 Cardiac Enzymes 09/25/18 Range/Units 01:12 Troponin I 0.05 H* (< 0.04) ng/mL Liver Function 09/25/18 Range/Units 01:12 Total Bilirubin 1.6 H (0.3-1.0) mg/dL Direct Bilirubin 0.5 H (0.0-0.2) mg/dL AST 20 (13-39) Units/L ALT 26 (7-52) Units/L Alkaline Phosphatase 67 (34-104) Units/L Albumin 3.7 (3.5-5.7) g/dL - Time Spent With Patient Total time spent is greater than 50% in coordination of care (as documented) at patient's floor/unit and/or counseling patient:
[2018-09-25] MEDS: *HR* Heparin 5,000 UNIT/ML VIAL SQ SCH ×3 (08:16→20:35)
[2018-09-25] MEDS: Furosemide 40 MG/4 ML VIAL IVP SCH ×2 (08:16→20:32)
[2018-09-25] MEDS: Insulin LISPRO 300 UNITS/3 ML VIAL SQ SCH ×4 (08:17→20:38)
[2018-09-25] MEDS: amLODIPine 5 MG TABLET PO SCH (08:18)
[2018-09-25] MEDS: Budesonide/Formoterol 160/4.5 1 PUFF INH IH SCH ×2 (10:27→22:21)
--- NOTE | 2018-09-25 11:55 | Pulmonology Consult Note ---
Date of Encounter: 09/25/18 Time of Encounter: 11:53 Assessment and Plan (1) Acute and chronic respiratory failure Current Visit: Yes Status: Acute In conclusion this is a very pleasant 73-year-old woman who presents with acute on chronic hypoxic respiratory failure patient has advanced emphysema and appears to have a flare of underlying COPD causing this symptomatology. Very interesting physiology in general in that his PFTs show only mild obstructive ventilatory defect but the degree of emphysema on his CT scan is quite dramatic. Overall this is caused a severe impairment in gas exchange requiring high flow nasal cannula. The troponin elevation likely secondary to demand ischemia BNP is elevated which to some degree is related to diastolic heart failure but also increased atrial stretch from chronic pulmonary hypertension from hypoxia. There is no clear evidence of infectious process at this time but cannot be fully excluded. Incidentally patient showed a tuna half centimeter ill-defined lung nodule in the left lower lobe he has increased risk factors for primary lung malignancy this cannot be excluded at this time. Recs: -Agree with BiPAP to ease work of breathing. Patient can be transitioned to high flow Brendan system for oxygen delivery for breaks -Schedule IV Solu-Medrol 80 mg every 6 hours can transition to higher dose prednisone such as 60 mg daily and will need prolonged taper to complete in the outpatient setting -Please send urine antigens for Legionella and strep pneumoniae would also send blood cultures if not are obtained of sputum with he produces any. Central calcitonin if no clear evidence of infectious process I think it is quite reasonable to hold off on antibiotics may consider macrolide such as azithromycin for 5 days for its anti-inflammatory effects -Agree with gentle diuresis with Lasix as tolerated by her kidney function and blood pressure goal negative should be about -500 mL -As far as lung nodules concerning need outpatient follow-up for this with repeat CT scan and 2-3 months in fact PET scan could be considered at that time. He would not be a good candidate for biopsy given degree of underlying emphysema. One could argue given his overall poor prognosis that follow-up of t his potential tumor is not warranted I will leave that discussion to his primary manager r d. DVT prophylaxis while inpatient. -I did discuss goals of care with the patient is current CODE STATUS is DNAR/DNI which in my opinion is quite appropriate given degree of hypoxemia on a chronic basis and poor candidacy for mechanical ventilation liberation. -Pulmonary will continue to follow Thank you for the consultation Do not hesitate to call me with any questions or concerns Kartik Romantristanric [phone] Qualifiers: Respiratory failure complication: hypoxia Qualified Code(s): J96.21 - Acute and chronic respiratory failure with hypoxia (2) COPD exacerbation Current Visit: Yes Status: Acute (3) Acute on chronic heart failure with preserved ejection fraction (HFpEF) Current Visit: Yes Status: Acute (4) Lung nodule Current Visit: Yes Status: Acute (5) Pulmonary fibrosis Current Visit: No Status: Chronic History of Present Illness Consult date: 09/25/18 Requesting physician: Jomar Wells Reason for consult: abnormal CXR/CT Chief complaint: Difficulty in Breathing History of present illness: Very pleasant 73-year-old gentleman with history of advanced emphysema compli cated by chronic respiratory failure also has a history of heart failure with preserved ejection fraction he presented to [facility] yesterday complaining of increased shortness of breath and been respiratory failure requiring BiPAP also had the mild troponin elevation and elevated lactate he was transferred to [facility] for further evaluation of her respiratory failure. Overnight patient's had overall improvement in lab findings the lactate had normalized he was given the systemic glucocorticoids and IV heparin which subsequently have been stopped. He has also been given scheduled Lasix twice a day. CT of the chest is been performed is negative for filling defect but notable for approximately 2.5cm nodule in the Superior seg LLL. Today Mr Mosher tells me that he is a very dyspneic. He is very short of breath at all the time with poor exercise tolerance such that he has difficulty ambulating cross the home without getting short of breath. He wears up to 15 L of nasal cannula O2 at home. He is well-known to the pulmonary service where he follows with my partner Dr. Castro in the pulmonary clinic who completed extensive evaluation for underlying respiratory failure. 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 He is a chronic steroid-dependent emphysema most recently at 20 mg. Denies any significant increase in cough and sputum production hemoptysis night sweats chills fevers unintentional weight loss denies any nausea vomiting diarrhea or chest pain. He is noted to have significant desaturation a time that he is off BiPAP to nasal cannula even if it is high flow here in the hospital. Past Med Surg Social Fam HX - Past Medical History Medical history: COPD, hyperlipidemia, hypertension, thyroid disease Psychiatric history: depression - Past Surgical History Additional surgical history: 3 cardiac stents, left shoulder surg, hernia repair - Social History Smoking Status: Former smoker Smokeless Tobacco Status: No Alcohol use: none Drug use: none - Family History Mother Hx Family Cardiac Disorders: Yes (HTN) Medications and Allergies Atorvastatin Calcium [Lipitor] 20 mg PO DAILY 04/27/17 [History] Clopidogrel [Plavix] 75 mg PO DAILY 04/27/17 [History] Levothyroxine [Synthroid] 125 mcg PO DAILY 04/27/17 [History] amLODIPine [Norvasc] 10 mg PO DAILY 04/27/17 [History] Citalopram Hydrobromide [Celexa] 20 mg PO DAILY 04/28/17 [History] Metoprolol [Lopressor] 25 mg PO BID 04/28/17 [History] Metformin HCl [Glucophage Xr] 750 mg PO DAILY 07/02/18 [History] Albuterol Sulfate [Proair Respiclick] 2 aerosol IH Q4HR PRN 09/25/18 [History] Benzonatate 100 mg PO TID 09/25/18 [History] Budesonide/Formoterol 160/4.5 [Symbicort 160/4.5] 2 aerosol IH BID 09/25/18 [History] Ipratropium/Albuterol Neb [Duoneb] 2 puff IH Q4HR 09/25/18 [History] Levothyroxine 125 mcg PO DAILY 09/25/18 [History] PredniSONE 10 mg PO DAILY 09/25/18 [History] Allergy/AdvReac Type Severity Reaction Status Date / Time No Known Allergies Allergy Verified 07/02/18 15:59 All Systems: The remainder of the systems were reviewed and are negative Physical Examination Vital Signs: Vital Signs, Last 4 Hours Temp Pulse Resp BP Pulse Ox 09/25/18 11:37 97.3 F L 88 25 112/85 96 09/25/18 10:27 27 127/94 97 09/25/18 08:00 25 97 General appearance: no acute distress Eyes: nonicteric Neck: supple Effort: mildly labored Auscultation: bilateral: diminished breath sounds Cardiovascular: regular rate and rhythm Gastrointestinal: soft, non-tender Integumentary: normal Extremities: no edema Musculoskeletal: no deformities normal mental status, non-focal exam mood appropriate Results - Laboratory Findings CBC and BMP: 09/25/18 01:12 09/25/18 01:12 PT/INR, D-dimer PT 16.1 Seconds (9.4-12.1) H 09/25/18 01:12 Abnormal lab findings: Abnormal lab results RDW 15.6 % (11.5-14.5) H 09/25/18 01:12 Lymphocytes # 0.5 K/mcL (0.6-4.6) L 09/25/18 01:12 PT 16.1 Seconds (9.4-12.1) H 09/25/18 01:12 Heparin Anti-Xa, Unfract 0.10 IU/mL (0.30-0.70) L 09/25/18 01:12 Glucose 210 mg/dL (70-105) H 09/25/18 01:12 Calculated Osmolality 301 (280-300) H 09/25/18 01:12 Lactic Acid 2.5 mmol/L (0.5-2.2) H 09/25/18 01:12 Total Bilirubin 1.6 mg/dL (0.3-1.0) H 09/25/18 01:12 Direct Bilirubin 0.5 mg/dL (0.0-0.2) H 09/25/18 01:12 Troponin I 0.05 ng/mL (< 0.04) H* 09/25/18 01:12 B-Natriuretic Peptide 1329 pg/mL (Less than 100) H 09/25/18 01:12 Serum Total Protein 6.2 g/dL (6.4-8.9) L 09/25/18 01:12 - Microbiology Findings Microbiology Findings: Microbiology, Last 48 Hours 09/25/18 01:12 Blood Culture - Preliminary Peripheral Venipuncture Culture is incubating and being continuously monitored for growth. Final report to follow. 09/25/18 01:12 Blood Culture - Preliminary Peripheral Venipuncture Culture is incubating and being continuously monitored for growth. Final report to follow. - Diagnostic Findings Chest x-ray: report reviewed, image reviewed CT scan - chest: report reviewed, image reviewed - Clinical Findings Intake & Output: Intake & Output 09/24/18 09/25/18 09/25/18 23:59 07:59 15:59 Intake Total 0 / 0 0 / 0 Output Total 1000 / 1525 525 / 1525 Balance -1000 / -1525 -525 / -1525 Weight 72.6 kg Consult Discharge Plan - Plan Referrals: NONE,PCP [Primary Care Provider] -
--- NOTE | 2018-09-25 13:29 | Event Note ---
Date of Encounter: 09/25/18 Time of Encounter: 13:25 Patient was seen and examined at bedside today. Patient was transferred from another facility due to acute on chronic hypoxic respiratory failure. Patient is currently on BiPAP. Patient was given aggressive diuresis. Patient is currently on Lasix 40 IV twice a day. Patient had a chest x-ray done as A facility which mentioned pulmonary vascular congestion. CT scan without contrast was done today which shows bilateral emphysema. CT scan also showed interstitial pulmonary fibrosis. No signs of focal consolidation on CT scan. CT scan mentioned a new finding off new nodule in superior segment of left lower lobe. Pulmonary was consulted. We will continue to follow pulmonary recommendation. Continue current management as this time. Patient takes prednisone 20 mg daily at home. I ordered prednisone 20 mg daily to be started from today. I spoke to patient's , Quiana and she mentioned that patient has DNR wishes and also DO NOT INTUBATE. Patient was placed on full code at the time of admission. I change order from full code to DNR comfort care and DO NOT INTUBATE.
[2018-09-25] MEDS ORDERED: predniSONE 20 MG TABLET PO SCH (13:30)
[2018-09-25] MEDS: methylPREDNISolone 125 MG/2 ML VIAL IVP SCH (16:22)
[2018-09-26] MEDS: methylPREDNISolone 125 MG/2 ML VIAL IVP SCH ×4 (00:14→23:57)
[2018-09-26] MEDS: *HR* Heparin 5,000 UNIT/ML VIAL SQ SCH ×3 (05:40→19:45)
--- NOTE | 2018-09-26 06:44 | Pulmonology Progress Note ---
Date of Encounter: 09/26/18 Time of Encounter: 06:44 Assessment and Plan (1) Acute and chronic respiratory failure Current Visit: Yes Status: Acute Patient has severe underlying emphysematous changes in his lungs with acute on chronic hypoxic respiratory failure although he requires up to 15 L of nasal cannula O2 delivered at home he is requiring 100% FiO2 delivered at 40 L right now this degree of oxygen requirement is very concerning and his respiratory examination today is otherwise benign with clear lung mcguire no crackles in fact a BUN and creatinine have increased a bit with diuresis although they still are within acceptable range. Pro-calcitonin is normal which makes infectious cause such as pneumonia less likely All this begs the question of possible pulmonary embolus with his relative limited mobility because of hypoxia - therefore CT angiogram to further evaluate this. If negative consider echocardiogram with bubble study to evaluate for new shunt physiology. I favor continued systemic glucocorticoids at dose ordered today and likely can de-escalate down to oral formulation within the next 24 hours Twice daily dosing of diuretic may be too much recommend stepping back a diuretic to once daily with the BUN elevation noted today As outlined in previous note he will need follow-up CT scan in 2-3 months and because of new left lung nodule Unfortunately Mr. Mosher's prognosis is poor. Consider palliative care cons ultation Qualifiers: Respiratory failure complication: hypoxia Qualified Code(s): J96.21 - Acute and chronic respiratory failure with hypoxia (2) COPD exacerbation Current Visit: Yes Status: Acute (3) Acute on chronic heart failure with preserved ejection fraction (HFpEF) Current Visit: Yes Status: Acute (4) Lung nodule Current Visit: Yes Status: Acute (5) Pulmonary fibrosis Current Visit: No Status: Chronic Subjective Principal diagnosis: Respiratory Failure Interval history: Mr Barr he continues to have labored breathing he is on a high flow nasal cannula at 40 L but requiring 100% FiO2 with quick desaturation area denies any hemoptysis blood sugars have been elevated because of systemic glucocorticoids Objective PUL Vital signs: Last Vital Signs Temp 97.7 F 09/25/18 20:41 Pulse 97 09/25/18 20:41 Resp 16 09/25/18 22:24 BP 122/95 09/25/18 20:41 Pulse Ox 95 09/25/18 22:24 General appearance: no acute distress ENT: oropharynx moist Effort: normal Auscultation: bilateral: clear Cardiovascular: regular rate and rhythm Gastrointestinal: normoactive bowel sounds Integumentary: normal Extremities: no cyanosis, no edema, no clubbing Musculoskeletal: no deformities normal mental status, non-focal exam mood appropriate Results - Laboratory Findings CBC and BMP: 09/26/18 06:43 09/26/18 06:43 PT/INR, D-dimer PT 16.1 Seconds (9.4-12.1) H 09/25/18 01:12 Abnormal lab findings: Abnormal lab results RDW 15.6 % (11.5-14.5) H 09/25/18 01:12 Lymphocytes # 0.5 K/mcL (0.6-4.6) L 09/25/18 01:12 PT 16.1 Seconds (9.4-12.1) H 09/25/18 01:12 Heparin Anti-Xa, Unfract 0.10 IU/mL (0.30-0.70) L 09/25/18 01:12 Glucose 210 mg/dL (70-105) H 09/25/18 01:12 POC Glucose 198 mg/dL (70-99) H 09/25/18 16:10 Calculated Osmolality 301 (280-300) H 09/25/18 01:12 Lactic Acid 2.5 mmol/L (0.5-2.2) H 09/25/18 01:12 Total Bilirubin 1.6 mg/dL (0.3-1.0) H 09/25/18 01:12 Direct Bilirubin 0.5 mg/dL (0.0-0.2) H 09/25/18 01:12 Troponin I 0.05 ng/mL (< 0.04) H* 09/25/18 01:12 B-Natriuretic Peptide 1329 pg/mL (Less than 100) H 09/25/18 01:12 Serum Total Protein 6.2 g/dL (6.4-8.9) L 09/25/18 01:12 - Microbiology Findings Microbiology Findings: Microbiology, Last 48 Hours 09/25/18 01:12 Blood Culture - Preliminary Peripheral Venipuncture Culture is incubating and being continuously monitored for growth. Final report to follow. 09/25/18 01:12 Blood Culture - Preliminary Peripheral Venipuncture Culture is incubating and being continuously monitored for growth. Final report to follow. - Clinical Findings Intake & Output: Intake & Output 09/25/18 09/25/1819 15:59 23:59 07:59 Intake Total 240 / 480 240 / 480 0 / 0 Output Total 525 / 1525 550 / 550 Balance -285 / -1045 240 / -1045 -550 / -550 Consult Discharge Plan - Plan Referrals: NONE,PCP [Primary Care Provider] -
[2018-09-26 08:07] LABS: Basophils % 0.1 %; Hematocrit 43.6 % (37.5-50.1); Hemoglobin 13.7 g/dL (12.9-16.9); Immature Granulocytes % 0.6 % (0-4); Lymphocytes # 0.5 K/mcL (0.6-4.6); Lymphocytes % 5.6 %; Mean Corpuscular HGB Conc 31.4 g/dL (31.6-35.5); Mean Corpuscular Hemoglobin 29.7 pg (28.0-33.3); Mean Corpuscular Volume 94.6 fL (83.0-100.0); Mean Platelet Volume 11.2 fL (9.4-12.4); Monocytes # 0.2 K/mcL (0.0-1.3); Monocytes % 1.7 %; Neutrophils # 8.1 K/mcL (1.6-8.9); Platelet Count 233 K/mcL (140-400); Red Blood Count 4.61 M/mcL (4.19-5.50); Red Cell Distribution Width 15.1 % (11.5-14.5); White Blood Count 8.8 K/mcL (4.3-11.1)
[2018-09-26] MEDS: amLODIPine 5 MG TABLET PO SCH (08:12)
[2018-09-26] MEDS: Furosemide 40 MG/4 ML VIAL IVP SCH ×2 (08:12→19:41)
[2018-09-26] MEDS: Insulin LISPRO 300 UNITS/3 ML VIAL SQ SCH ×4 (08:14→22:36)
[2018-09-26 08:24] LABS: BUN/Creatinine Ratio 26 (6-26); Blood Urea Nitrogen 28 mg/dL (8-23); Calcium 8.6 mg/dL (8.6-10.3); Carbon Dioxide 35 mEq/L (23-29); Chloride 95 mEq/L (98-107); Glucose 312 mg/dL (70-105); Osmolality,Calculated 309 (280-300); Potassium 3.4 mEq/L (3.5-5.1); Sodium 141 mEq/L (136-145); eGFR For African Americans > 60 (> 60); eGFR For Non-African Americans > 60 (> 60)
[2018-09-26] MEDS: Budesonide/Formoterol 160/4.5 1 PUFF INH IH SCH ×2 (09:32→21:15)
[2018-09-26] MEDS: Azithromycin 500 MG in D5% in Water 250 ML IVPB SCH (11:38)
--- NOTE | 2018-09-26 12:19 | Internal Med Progress Note ---
Hospitalist Progress Note - Encounter Date of Encounter: 09/26/18 Time of Encounter: 12:16 - Subjective Interval History: Patient was seen and examined today. Patient denies any acute issues and concerns overnight. Patient was seen by pulmonology yesterday. Patient needs outpatient follow-up CT scan in 2-3 monthsfor the left-sided nodule. - Exam Vitals: Temp Pulse Resp BP Pulse Ox 97.7 F 94 16 127/98 99 09/26/18 11:37 09/26/18 11:37 09/26/18 11:37 09/26/18 11:37 09/26/18 11:37 Exam: General: A & O 3, mild respiratory distress. On high flow system and BiPAP HENNT: PERRLA. Head atraumatic and makes supple CVS S1 and S2 regular, no murmur RS: B/l crackles and wheezes Abdomen: Soft and nontender. Bowel sounds normal 4 Extremities: No cyanosis, clubbing, and edema Neurology: Cranial 2 through 12 normal. Motor strength 5/5 bilaterally. Sens ation intact - Assessment and Plan (1) Acute on chronic respiratory failure with hypoxia Current Visit: No Status: Acute Assessment and Plan: Patient's presented to the hospital with difficulty breathing and hypoxemia. Patient had a chest x-ray done initially which showed pulmonary vascular congestion. Patient got CT chest done which showed bilateral pulmonary fibrosis. Nodule on the superior segment of the left lower lobe. And mild pulmonary congestion. Pulmonology consult. We will continue BiPAP, azithromycin, IV steroids, DuoNeb therapy, and home COPD medications. (2) Acute on chronic heart failure with preserved ejection fraction (HFpEF) Current Visit: Yes Status: Acute Assessment and Plan: Continue Lasix. Continue input and output. Daily weight (3) COPD exacerbation Current Visit: Yes Status: Acute Assessment and Plan: Continue home medication. IV steroid. (4) Lung nodule Current Visit: Yes Status: Acute Assessment and Plan: Pulmonology consult. Outpatient follow-up in 3 months. (5) CAD (coronary artery disease) Current Visit: No Status: Chronic Assessment and Plan: Continue Plavix, statin, beta rachel (6) HLD (hyperlipidemia) Current Visit: No Status: Chronic Assessment and Plan: Continue statin (7) HTN (hypertension) Current Visit: No Status: Chronic Assessment and Plan: Continue Norvasc (8) Type II diabetes mellitus Current Visit: No Status: Chronic Assessment and Plan: Continue current insulin bolus and basal regimen. (9) Hypothyroidism Current Visit: No Status: Chronic Assessment and Plan: Continue Synthroid - Time Spent with Patient Total time spent is greater than 50% in coordination of care (as documented) at patient's floor/unit and/or counseling patient: 25 - 35 minutes Plan of Care Discussed with: patient Internal Medicine: Result - Labs CBC & Chem 7: 09/26/18 06:43 09/26/18 06:43 Labs: Short CBC 09/26/18 Range/Units 06:43 WBC 8.8 (4.3-11.1) K/mcL Hgb 13.7 (12.9-16.9) g/dL Hct 43.6 (37.5-50.1) % Plt Count 233 (140-400) K/mcL Neutrophils # 8.1 (1.6-8.9) K/mcL BMP 09/26/18 06:43 Sodium 141 Potassium 3.4 L Chloride 95 L Carbon Dioxide 35 H BUN 28 H Creatinine 1.07 Glucose 312 H Calcium 8.6 - ABG Interpretation ABG results: PT/INR, D-dimer PT 16.1 Seconds (9.4-12.1) H 09/25/18 01:12 Consult Discharge Plan - Plan Referrals: NONE,PCP [Primary Care Provider] - (5) CAD (coronary artery disease) Qualifiers: Coronary Disease-Associated Artery/Lesion type: unspecified vessel or lesion type [place] vs. transplanted heart: unspecified whether [place] or transplanted heart Associated angina: angina presence unspecified Qualified Code(s): I25.10 - Atherosclerotic heart disease of [place] coronary artery without angina pectoris (6) HLD (hyperlipidemia) Qualifiers: Hyperlipidemia type: unspecified Qualified Code(s): E78.5 - Hyperlipidemia, unspecified (7) HTN (hypertension) Qualifiers: Hypertension type: essential hypertension Qualified Code(s): I10 - Essential (primary) hypertension (8) Type II diabetes mellitus Qualifiers: Diabetes mellitus extermination supervisor insulin use: with extermination supervisor use Diabetes mellitus complication status: without complication Qualified Code(s): E11.9 - Type 2 diabetes mellitus without complications; 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
[2018-09-26] MEDS ORDERED: Albuterol 2.5 MG/3 ML NEBULIZER IH PRN (13:28)
[2018-09-26] MEDS ORDERED: Isovue-370 500 ML BOTTLE IVP ONE (15:29)
[2018-09-27] MEDS: *HR* Heparin 5,000 UNIT/ML VIAL SQ SCH ×3 (05:28→21:26)
[2018-09-27 06:15] LABS: Basophils % 0.1 %; Hemoglobin 13.9 g/dL (12.9-16.9); Immature Granulocytes % 0.8 % (0-4); Lymphocytes # 0.5 K/mcL (0.6-4.6); Lymphocytes % 3.6 %; Mean Corpuscular HGB Conc 31.6 g/dL (31.6-35.5); Mean Corpuscular Hemoglobin 29.1 pg (28.0-33.3); Mean Corpuscular Volume 92.1 fL (83.0-100.0); Mean Platelet Volume 11.3 fL (9.4-12.4); Monocytes # 0.3 K/mcL (0.0-1.3); Monocytes % 2.1 %; Neutrophils # 13.5 K/mcL (1.6-8.9); Platelet Count 252 K/mcL (140-400); Red Blood Count 4.78 M/mcL (4.19-5.50); Red Cell Distribution Width 14.9 % (11.5-14.5); Segmented Neutrophils % 93.4 %
[2018-09-27 06:16] LABS: White Blood Count 14.5 K/mcL (4.3-11.1)
[2018-09-27 06:33] LABS: BUN/Creatinine Ratio 33 (6-26); Blood Urea Nitrogen 29 mg/dL (8-23); Calcium 8.7 mg/dL (8.6-10.3); Carbon Dioxide 34 mEq/L (23-29); Chloride 94 mEq/L (98-107); Glucose 288 mg/dL (70-105); Osmolality,Calculated 306 (280-300); Potassium 3.3 mEq/L (3.5-5.1); Sodium 140 mEq/L (136-145); eGFR For African Americans > 60 (> 60); eGFR For Non-African Americans > 60 (> 60)
[2018-09-27] MEDS: amLODIPine 5 MG TABLET PO SCH (08:26)
[2018-09-27] MEDS: Furosemide 40 MG/4 ML VIAL IVP SCH (08:27)
[2018-09-27] MEDS: methylPREDNISolone 125 MG/2 ML VIAL IVP SCH ×2 (08:29→19:42)
[2018-09-27] MEDS: Insulin LISPRO 300 UNITS/3 ML VIAL SQ SCH ×4 (08:30→21:40)
[2018-09-27] MEDS: Azithromycin 500 MG in D5% in Water 250 ML IVPB SCH (08:31)
[2018-09-27] MEDS: Budesonide/Formoterol 160/4.5 1 PUFF INH IH SCH ×2 (10:40→20:42)
--- NOTE | 2018-09-27 11:29 | Internal Med Progress Note ---
Hospitalist Progress Note - Encounter Date of Encounter: 09/27/18 Time of Encounter: 11:39 - Subjective Interval History: She was seen and examined at bedside. Patient is doing well. Patient is currently on high flow oxygen for breaks from BiPAP. - Exam Vitals: Temp Pulse Resp BP Pulse Ox 98.1 F 75 17 127/94 93 09/27/18 07:11 09/27/18 07:11 09/27/18 10:41 09/27/18 07:11 09/27/18 10:41 Exam: General: A & O 3, In no acute distress HENNT: PERRLA. Head atraumatic and makes supple CVS S1 and S2 regular, no murmur RS: Bilateral diffuse crackles. Abdomen: Soft and nontender. Bowel sounds normal 4 Extremities: No cyanosis, clubbing, and edema Neurology: Cranial 2 through 12 normal. Motor strength 5/5 bilaterally. Sensation intact - Assessment and Plan (1) Acute on chronic respiratory failure with hypoxia Current Visit: No Status: Acute Assessment and Plan: Patient's presented to the hospital with difficulty breathing and hypoxemia. Patient had a chest x-ray done initially which showed pulmonary vascular congestion. Patient got CT chest done which showed bilateral pulmonary fibrosis. Nodule on the superior segment of the left lower lobe. And mild pulmonary congestion. Pulmonology consult. We will continue BiPAP, azithromycin, IV steroids, DuoNeb therapy, and home COPD medications. Lasix was scheduled once daily due to elevated BUN. CT angiogram was ordered due to high degree of oxygen requirement. CTA was negative for any pulmonary embolus. We will continue current management. Patient's prognosis is poor we will consider palliative consult after talking with family and patient. (2) COPD exacerbation Current Visit: Yes Status: Acute Assessment and Plan: Continue home medication. IV steroid. Rest of the management as above. (3) Acute on chronic heart failure with preserved ejection fraction (HFpEF) Current Visit: Yes Status: Acute Assessment and Plan: Continue Lasix. Continue input and output. Daily weight (4) Lung nodule Current Visit: Yes Status: Acute Assessment and Plan: Pulmonology consult. Outpatient follow-up in 2-3 months. (5) CAD (coronary artery disease) Current Visit: No Status: Chronic Assessment and Plan: Continue Plavix, statin, beta rachel (6) HLD (hyperlipidemia) Current Visit: No Status: Chronic Assessment and Plan: Continue statin (7) HTN (hypertension) Current Visit: No Status: Chronic Assessment and Plan: Continue Norvasc (8) Type II diabetes mellitus Current Visit: No Status: Chronic Assessment and Plan: Continue current insulin bolus and basal regimen. (9) Hypothyroidism Current Visit: No Status: Chronic Assessment and Plan: Continue Synthroid DVT Prophylaxis: EPCD - Time Spent with Patient Total time spent is greater than 50% in coordination of care (as documented) at patient's floor/unit and/or counseling patient: Internal Medicine: Result - Labs CBC & Chem 7: 09/27/18 05:07 09/27/18 05:07 Labs: Short CBC 09/27/18 Range/Units 05:07 WBC 14.5 H D (4.3-11.1) K/mcL Hgb 13.9 (12.9-16.9) g/dL Hct 44.0 (37.5-50.1) % Plt Count 252 (140-400) K/mcL Neutrophils # 13.5 H (1.6-8.9) K/mcL BMP 09/27/18 05:07 Sodium 140 Potassium 3.3 L Chloride 94 L Carbon Dioxide 34 H BUN 29 H Creatinine 0.89 Glucose 288 H Calcium 8.7 - ABG Interpretation ABG results: PT/INR, D-dimer PT 16.1 Seconds (9.4-12.1) H 09/25/18 01:12 - Impressions Impressions Chest CTA 09/26/18 15:29 IMPRESSION: 1. No CT evidence of a pulmonary embolism. 2. Stable mild dependent atelectasis within the bilateral lower lobes, without acute airspace consolidation. 3. Stable moderate to severe emphysema. 4. Stable approximate 2.0 cm irregular opacity within the superior segment left lower lobe, most likely reflecting granulomatous disease. However, suggest short-term chest CT follow-up in 6-8 weeks following appropriate clinical treatment, to ensure resolution or stability of this finding. 5. Stable mild mediastinal and bilateral hilar lymphadenopathy, similar to yesterday's exam. This should also be followed to ensure resolution. 6. Chronic pulmonary arterial hypertension. 7. Stable 4.3 cm fusiform aneurysm of the ascending aorta. D/ / 09/26/2018 17:54:31 Ashu Cui MD / lianna Interpreting Provider: Ashu Cui MD Consult Discharge Plan - Plan Referrals: NONE,PCP [Primary Care Provider] - ____ (5) CAD (coronary artery disease) Qualifiers: Coronary Disease-Associated Artery/Lesion type: unspecified vessel or lesion type [place] vs. transplanted heart: unspecified whether [place] or transplanted heart Associated angina: angina presence unspecified Qualified Code(s): I25.10 - Atherosclerotic heart disease of [place] coronary artery without angina pectoris (6) HLD (hyperlipidemia) Qualifiers: Hyperlipidemia type: unspecified Qualified Code(s): E78.5 - Hyperlipidemia, unspecified (7) HTN (hypertension) Qualifiers: Hypertension type: essential hypertension Qualified Code(s): I10 - Essential (primary) hypertension (8) Type II diabetes mellitus Qualifiers: Diabetes mellitus snf insulin use: with ocean transportation intermediary use Diabetes mellitus complication status: without complication Qualified Code(s): E11.9 - Type 2 diabetes mellitus without complications; Z79.4 - intermediate designer (current) use of insulin (9) Hypothyroidism Qualifiers: Hypothyroidism type: unspecified Qualified Code(s): E03.9 - Hypothyroidism, unspecified
--- NOTE | 2018-09-27 16:56 | Pulmonology Progress Note ---
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 The patient is now dependent on heated high flow oxygen. Recommend weaning high flow oxygen to tolerance, and we may need to prevent lower auctions saturations in order to successfully wean off high flow oxygen. I am okay with the goal saturation equal to or greater than 85%. The patient has end-stage disease and describes significant air hunger and anxiety associated with breathlessness. It would be reasonable to consult [facility] medicine to assist with symptom control, and they can also further evaluate goals of care. He is hospice appropriate and in my opinion. I did discuss this with the patient and family at bedside. Qualifiers: Respiratory failure complication: hypoxia Qualified Code(s): J96.21 - Acute and chronic respiratory failure with hypoxia (2) COPD exacerbation Current Visit: Yes Status: Acute Unclear if this is truly an acute exacerbation of COPD versus the natural p rogression of end-stage disease. I agree with current plan of slow steroid taper and scheduled bronchodilators. Comment: Pulmonary edema continue to follow. Subjective Principal diagnosis: Respiratory Failure Interval history: Little change in respiratory status. The patient still has severe dyspnea with minimal activity. Objective PUL Vital signs: Last Vital Signs Temp 98.2 F 09/27/18 15:31 Pulse 83 09/27/18 15:31 Resp 20 09/27/18 15:31 BP 110/74 09/27/18 15:31 Pulse Ox 92 09/27/18 15:31 General appearance: other (Moderate work of breathing at rest) Eyes: nonicteric ENT: oropharynx moist Neck: supple Effort: mildly labored Auscultation: bilateral: diminished breath sounds Cardiovascular: regular rate and rhythm Gastrointestinal: normoactive bowel sounds, soft, non-tender Integumentary: normal Extremities: no cyanosis, no edema normal mental status, non-focal exam mood appropriate, affect normal Results - Laboratory Findings CBC and BMP: 09/27/18 05:07 09/27/18 05:07 PT/INR, D-dimer PT 16.1 Seconds (9.4-12.1) H 09/25/18 01:12 Abnormal lab findings: Abnormal lab results WBC 14.5 K/mcL (4.3-11.1) H D 09/27/18 05:07 MCHC 31.4 g/dL (31.6-35.5) L 09/26/18 06:43 RDW 14.9 % (11.5-14.5) H 09/27/18 05:07 Neutrophils # 13.5 K/mcL (1.6-8.9) H 09/27/18 05:07 Lymphocytes # 0.5 K/mcL (0.6-4.6) L 09/27/18 05:07 PT 16.1 Seconds (9.4-12.1) H 09/25/18 01:12 Heparin Anti-Xa, Unfract 0.10 IU/mL (0.30-0.70) L 09/25/18 01:12 Potassium 3.3 mEq/L (3.5-5.1) L 09/27/18 05:07 Chloride 94 mEq/L (98-107) L 09/27/18 05:07 Carbon Dioxide 34 mEq/L (23-29) H 09/27/18 05:07 BUN 29 mg/dL (8-23) H 09/27/18 05:07 BUN/Creatinine Ratio 33 (6-26) H 09/27/18 05:07 Glucose 288 mg/dL (70-105) H 09/27/18 05:07 POC Glucose 394 mg/dL (70-99) H 09/27/18 15:33 Calculated Osmolality 306 (280-300) H 09/27/18 05:07 Lactic Acid 2.5 mmol/L (0.5-2.2) H 09/25/18 01:12 Total Bilirubin 1.6 mg/dL (0.3-1.0) H 09/25/18 01:12 Direct Bilirubin 0.5 mg/dL (0.0-0.2) H 09/25/18 01:12 Troponin I 0.05 ng/mL (< 0.04) H* 09/25/18 01:12 B-Natriuretic Peptide 1329 pg/mL (Less than 100) H 09/25/18 01:12 Serum Total Protein 6.2 g/dL (6.4-8.9) L 09/25/18 01:12 - Microbiology Findings Microbiology Findings: Microbiology, Last 48 Hours 09/26/18 07:10 Streptococcus pneumoniae Antigen (M - Final Urine,Clean Catch 09/26/18 07:10 Legionella Antigen - Final Urine,Clean Catch - Clinical Findings Intake & Output: Intake & Output 09/27/18 09/27/18 09/27/18 07:59 15:59 23:59 Intake Total 0 / 240 240 / 240 Output Total 700 / 1000 300 / 1000 Balance -700 / -760 -60 / -760 Weight 72.8 kg Consult Discharge Plan - Plan Referrals: NONE,PCP [Primary Care Provider] -
[2018-09-28] MEDS: methylPREDNISolone 125 MG/2 ML VIAL IVP SCH ×3 (00:05→14:54)
[2018-09-28 04:15] LABS: Basophils % 0.1 %; Hematocrit 43.5 % (37.5-50.1); Immature Granulocytes % 0.7 % (0-4); Lymphocytes # 0.5 K/mcL (0.6-4.6); Lymphocytes % 3.1 %; Mean Corpuscular HGB Conc 32.2 g/dL (31.6-35.5); Mean Corpuscular Hemoglobin 29.8 pg (28.0-33.3); Mean Corpuscular Volume 92.6 fL (83.0-100.0); Mean Platelet Volume 11.2 fL (9.4-12.4); Monocytes # 0.6 K/mcL (0.0-1.3); Monocytes % 3.7 %; Neutrophils # 13.8 K/mcL (1.6-8.9); Platelet Count 237 K/mcL (140-400); Red Cell Distribution Width 14.6 % (11.5-14.5); Segmented Neutrophils % 92.4 %
[2018-09-28 04:37] LABS: BUN/Creatinine Ratio 38 (6-26); Blood Urea Nitrogen 30 mg/dL (8-23); Calcium 8.4 mg/dL (8.6-10.3); Carbon Dioxide 35 mEq/L (23-29); Chloride 96 mEq/L (98-107); Glucose 277 mg/dL (70-105); Osmolality,Calculated 302 (280-300); Potassium 3.5 mEq/L (3.5-5.1); Sodium 138 mEq/L (136-145); eGFR For African Americans > 60 (> 60); eGFR For Non-African Americans > 60 (> 60)
[2018-09-28] MEDS: *HR* Heparin 5,000 UNIT/ML VIAL SQ SCH ×3 (05:48→22:18)
[2018-09-28] MEDS: Budesonide/Formoterol 160/4.5 1 PUFF INH IH SCH ×2 (08:13→20:30)
[2018-09-28] MEDS: Furosemide 40 MG/4 ML VIAL IVP SCH (08:57)
[2018-09-28] MEDS: Azithromycin 500 MG in D5% in Water 250 ML IVPB SCH (08:57)
[2018-09-28] MEDS: Insulin LISPRO 300 UNITS/3 ML VIAL SQ SCH ×4 (08:58→22:14)
[2018-09-28] MEDS: amLODIPine 5 MG TABLET PO SCH (08:58)
--- NOTE | 2018-09-28 12:11 | Internal Med Progress Note ---
Hospitalist Progress Note - Encounter Date of Encounter: 09/28/18 Time of Encounter: 12:09 - Subjective Interval History: Patient was seen and examined at bedside. Patient is still on high flow oxygen. Patient requires more oxygen echo today to underlying extensive bilateral pulmonary interstitial disease and pulmonary fibrosis. Initial imaging) calci tonin level suggested patient does not have any infectious etiology at this time. CTA was negative for pulmonary embolism. Patient denies any acute issues and concerns at this time. I discussed CODE STATUS and palliative care with patient and his yesterday. I again discussed with patient about palliative care option today. Palliative care consult was placed. Awaiting palliative care recommendation. - Exam Vitals: Temp Pulse Resp BP Pulse Ox 96.3 F L 73 18 127/88 95 09/28/18 04:13 09/28/18 07:02 09/28/18 07:56 09/28/18 07:02 09/28/18 07:56 Exam: General: A & O 3, In no acute distress HENNT: PERRLA. Head atraumatic and makes supple CVS S1 and S2 regular, no murmur RS: Bilateral diffuse crackles. Abdomen: Soft and nontender. Bowel sounds normal 4 Extremities: No cyanosis, clubbing, and edema Neurology: Cranial 2 through 12 normal. Motor strength 5/5 bilaterally. Sensation intact - Assessment and Plan (1) Acute on chronic respiratory failure with hypoxia Current Visit: No Status: Acute Assessment and Plan: Patient's presented to the hospital with difficulty breathing and hypoxemia. Patient had a chest x-ray done initially which showed pulmonary vascular congestion. Patient got CT chest done which showed bilateral pulmonary fibrosis. Nodule on the superior segment of the left lower lobe. And mild pulmonary congestion. Pulmonology consult. We will continue BiPAP, azithromycin, IV steroids, DuoNeb therapy, and home COPD medications. Lasix was scheduled once daily due to elevated BUN. CT angiogram was ordered due to high degree of oxygen requirement. CTA was negative for any pulmonary embolus. We will continue current management. Patient's prognosis is poor we will consider palliative consult after talking with family and patient. Palliative consult was placed awaiting palliative consult recommendation. (2) COPD exacerbation Current Visit: Yes Status: Acute Assessment and Plan: Continue home medication. IV steroid. Rest of the management as above. (3) Acute on chronic heart failure with preserved ejection fraction (HFpEF) Current Visit: Yes Status: Acute Assessment and Plan: Continue Lasix. Continue input and output. Daily weight (4) Lung nodule Current Visit: Yes Status: Acute Assessment and Plan: Pulmonology consult. Outpatient follow-up in 2-3 months. (5) CAD (coronary artery disease) Current Visit: No Status: Chronic Assessment and Plan: Continue Plavix, statin, beta rachel (6) HLD (hyperlipidemia) Current Visit: No Status: Chronic Assessment and Plan: Continue statin (7) HTN (hypertension) Current Visit: No Status: Chronic Assessment and Plan: Continue Norvasc (8) Type II diabetes mellitus Current Visit: No Status: Chronic Assessment and Plan: Continue current insulin bolus and basal regimen. (9) Hypothyroidism Current Visit: No Status: Chronic Assessment and Plan: Continue Synthroid DVT Prophylaxis: EPCD - Time Spent with Patient Total time spent is greater than 50% in coordination of care (as documented) at patient's floor/unit and/or counseling patient: 25 - 35 minutes Plan of Care Discussed with: patient Internal Medicine: Result - Labs CBC & Chem 7: 09/28/18 03:39 09/28/18 03:39 Labs: Short CBC 09/28/18 Range/Units 03:39 WBC 15.0 H (4.3-11.1) K/mcL Hgb 14.0 (12.9-16.9) g/dL Hct 43.5 (37.5-50.1) % Plt Count 237 (140-400) K/mcL Neutrophils # 13.8 H (1.6-8.9) K/mcL BMP 09/28/18 03:39 Sodium 138 Potassium 3.5 Chloride 96 L Carbon Dioxide 35 H BUN 30 H Creatinine 0.80 Glucose 277 H Calcium 8.4 L - ABG Interpretation ABG results: PT/INR, D-dimer PT 16.1 Seconds (9.4-12.1) H 09/25/18 01:12 - Impressions Impressions Chest CT 09/25/18 08:45 IMPRESSION: 1. New 2.6 x 1.5 cm nodular opacity in the superior segment of the left lower lobe. Although this could be infectious or inflammatory in etiology, neoplastic process not excluded. Recommend short-term follow-up to ensure resolution. 2. No significant interval change in mediastinal and hilar adenopathy. 3. 4.3 cm ascending aortic aneurysm. 4. Severe emphysematous changes with dilated pulmonary artery suggestive of pulmonary hypertension. D/ / 09/25/2018 10:36:33 Luiza Wells MD / Veronica Moralez Interpreting Provider: Luiza Wells MD Chest CTA 09/26/18 15:29 IMPRESSION: 1. No CT evidence of a pulmonary embolism. 2. Stable mild dependent atelectasis within the bilateral lower lobes, without acute airspace consolidation. 3. Stable moderate to severe emphysema. 4. Stable approximate 2.0 cm irregular opacity within the superior segment of the left lower lobe, most likely reflecting granulomatous disease. However, suggest short-term chest CT follow-up in 6-8 weeks following appropriate clinical treatment, to ensure resolution or stability of this finding. 5. Stable mild mediastinal and bilateral hilar lymphadenopathy, similar to yesterday's exam. This should also be followed to ensure resolution. 6. Chronic pulmonary arterial hypertension. 7. Stable 4.3 cm fusiform aneurysm of the ascending aorta. D/ / 09/26/2018 17:54:31 Asuh Cui MD / lianna Interpreting Provider: Ashu Cui MD Consult Discharge Plan - Plan Referrals: NONE,PCP [Primary Care Provider] - (5) CAD (coronary artery disease) Qualifiers: Coronary Disease-Associated Artery/Lesion type: unspecified vessel or lesion type [place] vs. 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
--- NOTE | 2018-09-28 12:17 | Palliative - Consult Note ---
Date of Encounter: 09/28/18 Time of Encounter: 11:00 - Assessment and Plan (1) Dyspnea Current Visit: Yes Status: Acute Assessment and plan: Pt on HFNC 50L, 02 sat 90-92%. Pt cannot be discharged on HFNC, need to transition to nc 15L as per previous home regimen. Per pulmonary ok with 02 sat in the low 80s. Pt's goal is to return home as soon as possible with hospice. Recommend wean pt off HFNC to nc 15L and Bipap Use morphine SL and ativan to control air hunger symptoms. Qualifiers: Dyspnea type: shortness of breath Qualified Code(s): R06.02 - Shortness of breath; R06.00 - Dyspnea, unspecified; R06.01 - Orthopnea (2) Constipation Current Visit: Yes Status: Acute Assessment and plan: Agree with docusate daily and Miralax prn Qualifiers: Constipation type: slow transit constipation Qualified Code(s): K59.01 - Slow transit constipation (3) Goals of care, counseling/discussion Current Visit: Yes Status: Acute Assessment and plan: : - 45: Met with pt and discussed his current medical condition. Pt state d he wants to return home, but would like palliative and hospice team to meet with Quiana before final decision. Patient lives with his as a primary rn primary care, and has support from children. Palliative care to return once available. 13:00 - 13:20: Met with patient and Quiana, along with hospice nurse Luz Maria. Discussed current medical condition, trajectory of illness, treatment options and overall poor prognosis. Pt is aware of the natural history of his disease and understands that he is in the terminal stages. Patient most important goal at this point is to return home. Explained hospice care and philosophy. Pt and family have previous hospice experience, and opted for home hospice with [facility]. Explained that pt is not yet dischargeable as he will need to be weaned to nc 15 L. Referral made to [facility] by Luz Maria. Palliative care will continue to follow. (4) Emphysema lung Current Visit: No Status: Chronic Qualifiers: Emphysema type: panlobular Qualified Code(s): J43.1 - Panlobular emphysema (5) Pulmonary fibrosis Current Visit: No Status: Chronic (6) Acute and chronic respiratory failure Current Visit: Yes Status: Acute Qualifiers: Respiratory failure complication: hypoxia Qualified Code(s): J96.21 - Acute and chronic respiratory failure with hypoxia (7) End stage chronic obstructive pulmonary disease Current Visit: Yes Status: Acute (8) Palliative care encounter Current Visit: Yes Status: Acute Palliative-CN HPI - Data of Consult Patient: new to practice Consult date: 09/28/18 Requesting Physician: Jomar Wells MD Primary Care Provider: PCP NONE - Consult Narrative Palliative Care/Comfort Measures: Palliative care Reason for consult: hospice evaluation History of present illness: Mr. Mosher is a 73 year old male with hypertension, diabetes, hyperlipidemia, coronary artery disease and severe pulmonary emphysema/COPD with chronic hypoxic respiratory failure on 15L home O2 who presents here on transfer from [facility] where he went with complaints of increasing shortness of breath, becoming short of breath with minimal exertion which is now limited his functional capacity. Patient was admitted and put on BiPAP and HFN 50l/min. Pulmonary evaluation of end-stage lung disease. Patient is DNR/DNI and expressed the desire to return home. Palliative care consult for hospice evaluation. At the time of exam, pt was lying in bed, in moderate distress due to shortness of breath and air hunger, using accessory muscles, speaking in full sentences. he states he feels fine as long as he does not need to move. He denies any pain, dysuria, nausea or vomiting. He retains a good appetite. Complaining of constipation, no BM in 6 days. CC: Jomar Wells MD - Time Spent with Patient Time: Total time spent is greater than 50% in coordination of care (as documented) at patient's floor/unit and/or counseling patient: Time with patient: 75 minutes Past Med Surg Social Fam HX - Past Medical History Medical history: COPD, hyperlipidemia, hypertension, thyroid disease Psychiatric history: depression - Past Surgical History Additional surgical history: 3 cardiac stents, left shoulder surg, hernia repair - Social History Smoking Status: Former smoker Smokeless Tobacco Status: No Alcohol use: none Drug use: none - Family History Mother Hx Family Cardiac Disorders: Yes (HTN) Medications and Allergies Atorvastatin Calcium [Lipitor] 20 mg PO DAILY 04/27/17 [History] Clopidogrel [Plavix] 75 mg PO DAILY 04/27/17 [History] Levothyroxine [Synthroid] 125 mcg PO DAILY 04/27/17 [History] amLODIPine [Norvasc] 10 mg PO DAILY 04/27/17 [History] Citalopram Hydrobromide [Celexa] 20 mg PO DAILY 04/28/17 [History] Metoprolol [Lopressor] 25 mg PO BID 04/28/17 [History] Metformin HCl [Glucophage Xr] 750 mg PO DAILY 07/02/18 [History] Albuterol Sulfate [Proair Respiclick] 2 puff IH Q4HR PRN 09/25/18 [History] Budesonide/Formoterol 160/4.5 [Symbicort 160/4.5] 2 aerosol IH BID 09/25/18 [History] Ipratropium/Albuterol Neb [Duoneb] 2 puff IH Q4HR PRN 09/25/18 [History] Furosemide [Lasix] 20 mg PO DAILY 09/26/18 [History] predniSONE [PredniSONE] 20 mg PO DAILY 09/26/18 [History] Allergy/AdvReac Type Severity Reaction Status Date / Time No Known Allergies Allergy Verified 07/02/18 15:59 - Constitutional Constitutional ROS PAL: fatigue - EENT Additional comments: negative - Cardiovascular Cardiovascular ROS: dyspnea on exertion, no chest pain at rest, no edema - Respiratory Respiratory: dyspnea, dyspnea on exertion, no cough - Gastrointestinal Gastrointestinal: constipation, no abdominal pain - Genitourinary Genitourinary ROS male: no dysuria - Musculoskeletal Additional comments: negative - Integumentary Additional comments: negative - Neurological Neurological ROS: no dizziness, no focal weakness, no numbness, no paresthesias - Psychiatric Psychiatric general PM: no depression Palliative Care-Exam - Constitutional Vitals: Temp Pulse Resp BP Pulse Ox 96.3 F L 73 18 127/88 95 09/28/18 04:13 09/28/18 07:02 09/28/18 07:56 09/28/18 07:02 09/28/18 07:56 Exam: General: Obese, in mild respiratory distress. Skin: Warm and dry. HEENT: Moist mucous membranes. No conjunctivae pallor. Neck: No lymphadenopathy. No JVD. No carotid bruits. No palpable thyroid. Chest: Diminished thoracic expansion. Reduced breath sounds globally but more predominant on the left hemithorax, crackles in the R lung Heart: Tachycardic; rhythmic. Abdomen: Non-distended, soft and non-tender to palpation. No peritoneal reaction. Extremities: No clubbing, cyanosis or edema. No calf tenderness. Normal distal pulses. Neurological: Awake, alert and oriented to person, place and time. No focal deficits. Psych: Affect appropriate. Internal Medicine - CN: Reslt - Labs CBC & Chem 7: 09/28/18 03:39 09/28/18 03:39 Labs: Short CBC 09/28/18 Range/Units 03:39 WBC 15.0 H (4.3-11.1) K/mcL Hgb 14.0 (12.9-16.9) g/dL Hct 43.5 (37.5-50.1) % Plt Count 237 (140-400) K/mcL Neutrophils # 13.8 H (1.6-8.9) K/mcL BMP 09/28/18 03:39 Sodium 138 Potassium 3.5 Chloride 96 L Carbon Dioxide 35 H BUN 30 H Creatinine 0.80 Glucose 277 H Calcium 8.4 L - ABG Interpretation ABG results: PT/INR, D-dimer PT 16.1 Seconds (9.4-12.1) H 09/25/18 01:12 - Impressions Impressions Chest CT 09/25/18 08:45 IMPRESSION: 1. New 2.6 x 1.5 cm nodular opacity in the superior segment of the left lower lobe. Although this could be infectious or inflammatory in etiology, neoplastic process not excluded. Recommend short-term follow-up to ensure resolution. 2. No significant interval change in mediastinal and hilar adenopathy. 3. 4.3 cm ascending aortic aneurysm. 4. Severe emphysematous changes with dilated pulmonary artery suggestive of pulmonary hypertension. D/ / 09/25/2018 10:36:33 Luiza Wells MD / Veronica Moralez Interpreting Provider: Luiza Wells MD Chest CTA 09/26/18 15:29 IMPRESSION: 1. No CT evidence of a pulmonary embolism. 2. Stable mild dependent atelectasis within the bilateral lower lobes, without acute airspace consolidation. 3. Stable moderate to severe emphysema. 4. Stable approximate 2.0 cm irregular opacity within the superior segment of the left lower lobe, most likely reflecting granulomatous disease. However, suggest short-term chest CT follow-up in 6-8 weeks following appropriate clinical treatment, to ensure resolution or stability of this finding. 5. Stable mild mediastinal and bilateral hilar lymphadenopathy, similar to yesterday's exam. This should also be followed to ensure resolution. 6. Chronic pulmonary arterial hypertension. 7. Stable 4.3 cm fusiform aneurysm of the ascending aorta. D/ / 09/26/2018 17:54:31 Ashu Cui MD / lianna Interpreting Provider: Ashu Cui MD Consult Discharge Plan - Plan Referrals: NONE,PCP [Primary Care Provider] - Palliative Quality Palliative Quality: Screen for Code Status: Yes, Screen for Goals of Care: Yes, Screen for Pain: Yes, If Pain Regimen Started, Initiate Bowel Regimen: Yes, Screen for Nausea/Vomitting: Yes Code Status: 09/25/18 13:01 CODE [Resuscitation Status: Active] [RES] Routine Comment: Resuscitation Status: [id number] Palliative Scale - Palliative Performance Scale How ambulatory is this patient?: Mainly in bed What is patient's level of activity and evidence of disease?: Unable to do any work, Extensive disease How much self-care assistance does patient require?: Mainly assistance How much oral intake does the patient have?: Normal What is this patient's level of consciousness?: Full Palliative Performance Score: 40 %
[2018-09-28] MEDS ORDERED: Morphine Sulfate Oral CONC 10 MG/0.5 ML ORAL.SYG SL PRN (14:13)
[2018-09-28] MEDS ORDERED: *HR* LORazepam Oral Conc 2 MG/ML PO PRN (14:13)
[2018-09-29] MEDS: methylPREDNISolone 125 MG/2 ML VIAL IVP SCH ×2 (00:20→08:43)
[2018-09-29] MEDS: *HR* Heparin 5,000 UNIT/ML VIAL SQ SCH (05:53)
[2018-09-29 06:35] LABS: Basophils % 0.1 %; Hematocrit 44.6 % (37.5-50.1); Hemoglobin 14.2 g/dL (12.9-16.9); Immature Granulocytes % 0.8 % (0-4); Lymphocytes # 0.4 K/mcL (0.6-4.6); Lymphocytes % 3.1 %; Mean Corpuscular HGB Conc 31.8 g/dL (31.6-35.5); Mean Corpuscular Hemoglobin 29.3 pg (28.0-33.3); Mean Corpuscular Volume 92.1 fL (83.0-100.0); Mean Platelet Volume 11.2 fL (9.4-12.4); Monocytes # 0.4 K/mcL (0.0-1.3); Monocytes % 2.7 %; Neutrophils # 12.9 K/mcL (1.6-8.9); Platelet Count 233 K/mcL (140-400); Red Blood Count 4.84 M/mcL (4.19-5.50); Red Cell Distribution Width 14.6 % (11.5-14.5); Segmented Neutrophils % 93.3 %; White Blood Count 13.9 K/mcL (4.3-11.1)
[2018-09-29 06:58] LABS: BUN/Creatinine Ratio 36 (6-26); Blood Urea Nitrogen 36 mg/dL (8-23); Calcium 8.7 mg/dL (8.6-10.3); Carbon Dioxide 38 mEq/L (23-29); Chloride 92 mEq/L (98-107); Glucose 291 mg/dL (70-105); Osmolality,Calculated 305 (280-300); Potassium 3.7 mEq/L (3.5-5.1); Sodium 138 mEq/L (136-145); eGFR For African Americans > 60 (> 60); eGFR For Non-African Americans > 60 (> 60)
[2018-09-29] MEDS: Budesonide/Formoterol 160/4.5 1 PUFF INH IH SCH (07:43)
[2018-09-29 07:51] VITALS: BP 144/109
[2018-09-29] MEDS: amLODIPine 5 MG TABLET PO SCH (08:42)
[2018-09-29] MEDS: Furosemide 40 MG/4 ML VIAL IVP SCH (08:43)
[2018-09-29] MEDS: Insulin LISPRO 300 UNITS/3 ML VIAL SQ SCH ×2 (08:43→12:17)
--- NOTE | 2018-09-29 10:16 | Palliative Progress Note ---
Date of Encounter: 09/29/18 Time of Encounter: 10:00 - Assessment and plan (1) Dyspnea Current Visit: Yes Status: Acute Assessment and plan: Patient was transitioned to nc 15L per home dose, appears stable at rest. Morphine SL and Ativan in place for symptom management. BiPAP prn Qualifiers: Dyspnea type: shortness of breath Qualified Code(s): R06.02 - Shortness of breath; R06.00 - Dyspnea, unspecified; R06.01 - Orthopnea (2) Constipation Current Visit: Yes Status: Acute Assessment and plan: Received docusate and Miralax, no BM yet. Abdomen remains soft, non tender. To be continued at home. Qualifiers: Constipation type: slow transit constipation Qualified Code(s): K59.01 - Slow transit constipation (3) Goals of care, counseling/discussion Current Visit: Yes Status: Acute Assessment and plan: Patient's goal remains to return home with [facility]. Bipap and equipment ordered and to be delivered today. Pt should be cleared for discharge today. Scripts for morphine and Ativan sent to pharmacy, for medication to be delivered to pt before discharge. (4) Emphysema lung Current Visit: No Status: Chronic Qualifiers: Emphysema type: panlobular Qualified Code(s): J43.1 - Panlobular emphysema (5) Pulmonary fibrosis Current Visit: No Status: Chronic (6) Acute and chronic respiratory failure Current Visit: Yes Status: Acute Qualifiers: Respiratory failure complication: hypoxia Qualified Code(s): J96.21 - Acute and chronic respiratory failure with hypoxia (7) End stage chronic obstructive pulmonary disease Current Visit: Yes Status: Acute (8) Palliative care encounter Current Visit: Yes Status: Acute - Time Spent With Patient Total time spent is greater than 50% in coordination of care (as documented) at patient's floor/unit and/or counseling patient: - Subjective Interval history: Patient remains AAOx3, in mild respiratory distress. Was transitioned to nc 15L, 02sat 90% at rest. He feels somewhat better and is looking forward to returning home. at the bedside, educated further about hospice, comfort medication, and what to expect. - Constitutional Vitals: Abnormal lab results WBC 13.9 K/mcL (4.3-11.1) H 09/29/18 05:32 MCHC 31.4 g/dL (31.6-35.5) L 09/26/18 06:43 RDW 14.6 % (11.5-14.5) H 09/29/18 05:32 Neutrophils # 12.9 K/mcL (1.6-8.9) H 09/29/18 05:32 Lymphocytes # 0.4 K/mcL (0.6-4.6) L 09/29/18 05:32 PT 16.1 Seconds (9.4-12.1) H 09/25/18 01:12 Heparin Anti-Xa, Unfract 0.10 IU/mL (0.30-0.70) L 09/25/18 01:12 Potassium 3.3 mEq/L (3.5-5.1) L 09/27/18 05:07 Chloride 92 mEq/L (98-107) L 09/29/18 05:32 Carbon Dioxide 38 mEq/L (23-29) H 09/29/18 05:32 BUN 36 mg/dL (8-23) H 09/29/18 05:32 BUN/Creatinine Ratio 36 (6-26) H 09/29/18 05:32 Glucose 291 mg/dL (70-105) H 09/29/18 05:32 POC Glucose 320 mg/dL (70-99) H 09/28/18 16:20 Calculated Osmolality 305 (280-300) H 09/29/18 05:32 Lactic Acid 2.5 mmol/L (0.5-2.2) H 09/25/18 01:12 Calcium 8.4 mg/dL (8.6-10.3) L 09/28/18 03:39 Total Bilirubin 1.6 mg/dL (0.3-1.0) H 09/25/18 01:12 Direct Bilirubin 0.5 mg/dL (0.0-0.2) H 09/25/18 01:12 Troponin I 0.05 ng/mL (< 0.04) H* 09/25/18 01:12 B-Natriuretic Peptide 1329 pg/mL (Less than 100) H 09/25/18 01:12 Serum Total Protein 6.2 g/dL (6.4-8.9) L 09/25/18 01:12 Exam: General: in mild respiratory distress. Skin: Warm and dry. HEENT: Moist mucous membranes. No conjunctivae pallor. Neck: No lymphadenopathy. No JVD. No carotid bruits. No palpable thyroid. Chest: Diminished thoracic expansion. Reduced breath sounds globally but more predominant on the left hemithorax, crackles in the R lung Heart: Tachycardic; rhythmic. Abdomen: Non-distended, soft and non-tender to palpation. No peritoneal reaction. Extremities: No clubbing, cyanosis or edema. No calf tenderness. Normal distal pulses. Neurological: Awake, alert and oriented to person, place and time. No focal deficits. Palliative Quality Palliative Quality: Screen for Code Status: Yes, Screen for Goals of Care: Yes, Screen for Pain: Yes, If Pain Regimen Started, Initiate Bowel Regimen: Yes, Screen for Nausea/Vomitting: Yes Code Status: 09/25/18 13:01 CODE [Resuscitation Status: Active] [RES] Routine Comment: Resuscitation Status: [id number] - Labs CBC & Chem 7: 09/29/18 05:32 09/29/18 05:32 Labs: Laboratory Results - last 24 hr 09/28/18 09/28/18 09/28/18 08:02 12:15 12:16 WBC RBC Hgb Hct MCV MCH MCHC RDW Plt Count MPV Immature Gran % Seg Neutrophils % Lymphocytes % Monocytes % Eosinophils % Basophils % Neutrophils # Lymphocytes # Monocytes # Eosinophils # Basophils # Sodium Potassium Chloride Carbon Dioxide BUN Creatinine Est GFR ( Amer) Est GFR (Non-Af Amer) BUN/Creatinine Ratio Glucose POC Glucose 261 H 422 H* 414 H* Calculated Osmolality Calcium 09/28/18 09/29/18 09/29/18 16:20 05:32 05:32 WBC 13.9 H RBC 4.84 Hgb 14.2 Hct 44.6 MCV 92.1 MCH 29.3 MCHC 31.8 RDW 14.6 H Plt Count 233 MPV 11.2 Immature Gran % 0.8 Seg Neutrophils % 93.3 Lymphocytes % 3.1 Monocytes % 2.7 Eosinophils % 0.0 Basophils % 0.1 Neutrophils # 12.9 H Lymphocytes # 0.4 L Monocytes # 0.4 Eosinophils # 0.0 Basophils # 0.0 Sodium 138 Potassium 3.7 Chloride 92 L Carbon Dioxide 38 H BUN 36 H Creatinine 1.01 Est GFR ( Amer) > 60 Est GFR (Non-Af Amer) > 60 BUN/Creatinine Ratio 36 H Glucose 291 H POC Glucose 320 H Calculated Osmolality 305 H Calcium 8.7 - ABG Interpretation ABG results: PT/INR, D-dimer PT 16.1 Seconds (9.4-12.1) H 09/25/18 01:12 Palliative Scale - Palliative Performance Scale How ambulatory is this patient?: Mainly in bed What is patient's level of activity and evidence of disease?: Unable to do any work, Extensive disease How much self-care assistance does patient require?: Mainly assistance How much oral intake does the patient have?: Normal What is this patient's level of consciousness?: Full Palliative Performance Score: 40 % Consult Discharge Plan - Plan Referrals: NONE,PCP [Primary Care Provider] - Prescriptions: LORazepam [Ativan] 0.5 mg PO Q4HR PRN 3 Days #18 tablet PRN Reason: Anxiety LORazepam Oral Conc [Ativan Oral Conc] 1 mg PO Q4HR PRN 30 Days #30 mls PRN Reason: Anxiety Docusate [Colace] 100 mg PO BID 15 Days #30 capsule Polyethylene Glycol 3350 [MiraLAX] 17 gm PO DAILY PRN 30 Days #30 powd.pack PRN Reason: Constipation Polyethylene Glycol 3350 [MiraLAX] 17 gm PO DAILY 30 Days #30 powd.pack Morphine Sulfate Oral CONC [Roxanol Oral Conc] 5 mg SL Q4HR PRN 30 Days #30 oral.syg PRN Reason: Dyspnea Morphine Sulfate Oral CONC [Roxanol Oral Conc] 5 mg PO Q4H PRN 3 Days #10 oral.syg PRN Reason: Dyspnea Sennosides/Docusate Sodium [Senna Plus] 1 each PO HS #12 tablet
--- NOTE | 2018-09-29 10:35 | Discharge Summary ---
Orders not resulted at time of discharge: Pending orders 09/25/18 01:12 Culture,Blood [BC] Stat Date of Encounter: 09/29/18 Time of Encounter: 10:33 - Discharge Diagnosis (1) Acute on chronic respiratory failure with hypoxia Priority: Primary Status: Acute Assessment and Plan: Patient's presented to the hospital with difficulty breathing and hypoxemia. Patient had a chest x-ray done initially which showed pulmonary vascular congestion. Patient got CT chest done which showed bilateral pulmonary fibrosis. Nodule on the superior segment of the left lower lobe. And mild pulmonary congestion. Patient is curently back on his home oxygen rate of 15ml/min Will discharge home with home hospice. (2) Idiopathic pulmonary fibrosis Priority: Secondary Status: Acute Assessment and Plan: Patient is in cronic respiratory failure on account of IPF [place] hospice care on board. He will be discharged on home hsopice. (3) HTN (hypertension) Priority: Secondary Status: Chronic Assessment and Plan: Continue Norvasc Qualifiers: Hypertension type: essential hypertension Qualified Code(s): I10 - Essential (primary) hypertension (4) Hypothyroidism Priority: Secondary Status: Chronic Assessment and Plan: Continue Synthroid Qualifiers: Hypothyroidism type: unspecified Qualified Code(s): E03.9 - Hypothyroidism, unspecified (5) Type II diabetes mellitus Priority: Secondary Status: Chronic Assessment and Plan: Continue current insulin bolus and basal regimen. 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 transplanted heart: unspecified whether [place] or transplanted heart Associated angina: angina presence unspecified Qualified Code(s): I25.10 - Atherosclerotic heart disease of [place] coronary artery without angina pectoris (7) HLD (hyperlipidemia) Priority: Secondary Status: Chronic Assessment and Plan: Continue statin Qualifiers: Hyperlipidemia type: unspecified Qualified Code(s): E78.5 - Hyperlipidemia, unspecified (8) COPD exacerbation Priority: Secondary Status: Acute Assessment and Plan: Continue home oxygen and breathing treaments. NIV set up at home by [facility]. (9) Acute on chronic heart failure with preserved ejection fraction (HFpEF) Priority: Secondary Status: Acute Assessment and Plan: Continue Lasix. Continue input and output. Daily weight (10) Lung nodule Priority: Secondary Status: Acute Assessment and Plan: Pulmonology consult. Outpatient follow-up in 2-3 months. Hospital course: Mr. Mosher is a 73 year old male who presented with acute on chronic respiratory faiilure. CT scan revealed IPF. The pain and palliative team met with patient and his relatives and the plan is for him to go home on home hopsice. Discharge discussed with: patient, nurse, social work, sec reporting consultant - Time Spent with Patient Total time spent providing and/or coordinating discharge services: Time spent: Greater than 30 minutes (40) - Discharge Medications Prescriptions: New LORazepam Oral Conc [Ativan Oral Conc] 1 mg PO Q4HR PRN 30 Days #30 mls PRN Reason: Anxiety Docusate [Colace] 100 mg PO BID 15 Days #30 capsule Polyethylene Glycol 3350 [MiraLAX] 17 gm PO DAILY 30 Days #30 powd.pack Morphine Sulfate Oral CONC [Roxanol Oral Conc] 5 mg SL Q4HR PRN 30 Days #30 oral.syg PRN Reason: Dyspnea Continued Metoprolol [Lopressor] 25 mg PO BID Citalopram Hydrobromide [Celexa] 20 mg PO DAILY Albuterol Sulfate [Proair Respiclick] 2 puff IH Q4HR PRN PRN Reason: Shortness Of Breath Ipratropium/Albuterol Neb [Duoneb] 2 puff IH Q4HR PRN PRN Reason: Shortness Of Breath Budesonide/Formoterol 160/4.5 [Symbicort 160/4.5] 2 aerosol IH BID predniSONE [PredniSONE] 20 mg PO DAILY Furosemide [Lasix] 20 mg PO DAILY amLODIPine [Norvasc] 10 mg PO DAILY Atorvastatin Calcium [Lipitor] 20 mg PO DAILY Clopidogrel [Plavix] 75 mg PO DAILY Levothyroxine [Synthroid] 125 mcg PO DAILY Metformin HCl [Glucophage Xr] 750 mg PO DAILY Home Medications: Atorvastatin Calcium [Lipitor] 20 mg PO DAILY 04/27/17 [History] Clopidogrel [Plavix] 75 mg PO DAILY 04/27/17 [History] Levothyroxine [Synthroid] 125 mcg PO DAILY 04/27/17 [History] amLODIPine [Norvasc] 10 mg PO DAILY 04/27/17 [History] Citalopram Hydrobromide [Celexa] 20 mg PO DAILY 04/28/17 [History] Metoprolol [Lopressor] 25 mg PO BID 04/28/17 [History] Metformin HCl [Glucophage Xr] 750 mg PO DAILY 07/02/18 [History] Albuterol Sulfate [Proair Respiclick] 2 puff IH Q4HR PRN 09/25/18 [History] Budesonide/Formoterol 160/4.5 [Symbicort 160/4.5] 2 aerosol IH BID 09/25/18 [History] Ipratropium/Albuterol Neb [Duoneb] 2 puff IH Q4HR PRN 09/25/18 [History] Furosemide [Lasix] 20 mg PO DAILY 09/26/18 [History] predniSONE [PredniSONE] 20 mg PO DAILY 09/26/18 [History] Docusate [Colace] 100 mg PO BID 15 Days #30 capsule 09/29/18 [Rx] LORazepam Oral Conc [Ativan Oral Conc] 1 mg PO Q4HR PRN 30 Days #30 mls 09/29/18 [Rx] Morphine Sulfate Oral CONC [Roxanol Oral Conc] 5 mg SL Q4HR PRN 30 Days #30 o ral.syg 09/29/18 [Rx] Polyethylene Glycol 3350 [MiraLAX] 17 gm PO DAILY 30 Days #30 powd.pack 09/29/18 [Rx] Allergies/Adverse Reactions: Allergy/AdvReac Type Severity Reaction Status Date / Time No Known Allergies Allergy Verified 07/02/18 15:59 Date of admission: 09/24/18 23:52 Primary care physician: PCP NONE Consults: 09/27/18 12:22 Consult to Palliative Care [CONS] Stat Comment: Consulting Provider: Palliative Care Kaylyn Reason for Consult: Patient has severe bilateral pulmonary interstitial disease with fibrosis. Patient requires high flow oxygen with poor prognosis. Discussion is currently DNR DNI. Discussed future options. Call Completed: Yes - Constitutional Vitals: Temp Pulse Resp BP Pulse Ox 36.1 C L 76 16 144/109 94 09/29/18 07:38 09/29/18 07:38 09/29/18 07:50 09/29/18 07:38 09/29/18 07:50 Exam: GENERAL: MIld resiratory distress on 15L/min of O2. HEENT: EOMI, PERRLA MOUTH: Good oral hygiene NECK:No JVD, No lymph nodes. CHEST AND LUNGS: Bilateral cracklesin middle and lower ones posteriorly. HEART: S1 and S2 normal, no murmurs ABDOMEN: Soft, nontender, no organomegaly SKIN: Normal color, no rahses, no lesions EXTREMITIES: No deformity, no edema, no tenderness, no joint swelling or clubbing NEUROLOGICAL: Normal cognition, normal motor and sensory exam. - Patient Status Disposition: Hospice - Home Condition: Fair Functional capacity at discharge: wheelchair bound Overall status at discharge: patient is back to baseline - Discharge Instructions Follow Up With: NONE,PCP [Primary Care Provider] - - Diet and Activity Activity: increase activity as tolerated, wear oxygen at all times Diet: advance to your usual diet
[2018-09-29] MEDS: Azithromycin 500 MG in D5% in Water 250 ML IVPB SCH (11:43)
== END 2018-09-29 15:29 | disposition hospice, home (50) | DRG 189 ==
LOC: 2NENU 23:52 → SUATTDRO 23:52
PROVIDERS: ADMIT Student in an Organized Health Care Education/Training Program; ATTEND Internal Medicine